=== PATIENT | male | born 1985 | race American Indian/Alaskan Native ===

== ENCOUNTER 2022-03-19 07:43 | Emergency (ER) | payer OTHER, SELFPAY ==
--- NOTE | ~2022-03-19 | CT_ITS ---
EXAMINATION: CT ABDOMEN AND PELVIS WITHOUT CONTRAST CLINICAL INFORMATION: Left flank and groin pain. COMPARISON: None TECHNIQUE: Multidetector volumetric imaging was performed from the superior aspect of the liver through the pubic symphysis. Sagittal and coronal reformatted images were obtained on the technologist's workstation. This CT examination was performed using dose optimization techniques as appropriate, variously including the following: *Automated exposure control *Adjustment of mA and/or kV according to patient size (this includes techniques or standardized protocols for targeted exams where dose is matched to indication/reason for exam; i.e. extremities or head) *Use of iterative reconstruction technique DLP: 500 mGy-cm FINDINGS: Visualized lung bases are well aerated. The liver demonstrates normal size, contour and attenuation. The gallbladder is normal in appearance. The pancreas, spleen and adrenal glands are unremarkable. Mild left-sided hydronephrosis secondary to a 4 mm calculus within the left ureterovesical junction. No other renal calculi in the left kidney are noted, however, there are approximately two 1 mm nonobstructing calculi of the right kidney demonstrated. There is no right-sided hydronephrosis. There is a 6 mm hyperdense lesion within the upper pole of the right kidney which is inaccurately characterized but statistically a hyperdense cyst. Normal caliber loops of small and large bowel. Normal appendix. Tiny fat-containing umbilical hernia. Some nodular densities within the subcutaneous tissues of the anterior abdomen are nonspecific but suspected to be injection related. Normal caliber abdominal aorta demonstrating only minimal atherosclerotic disease. No retroperitoneal lymphadenopathy. The stomach is decompressed and therefore not accurately evaluated. The prostate gland is not enlarged. No gross free pelvic fluid. No inguinal lymphadenopathy. No acute osseous abnormality. Bilateral L5 pars defects. 1 cm sclerotic density within the left ilium is nonspecific but suspected to a bone island. CT/CT abdomen pelvis wo con IMPRESSION: -Mild left-sided hydronephrosis secondary to 4 mm calculus within the left ureterovesical junction. Fleischner guidelines were followed.
[2022-03-19 08:07] VITALS: BP 130/90; PULSE 63; PULSE 66; RESP 16; TEMP 36.7; O2SAT 100; O2SAT 98; BMI 25.0
--- NOTE | 2022-03-19 08:15 | PC.NURSE ---
Pt comes in via EMS with complaints of L sided abd pain that radiates into L groin with N/V since 399. Also states diff urinating at this time. Pt states he has had previous abd surgery at [place] where his stomach was wrapped around his intestines and he almost . Pt is A&Ox4, anxious, pacing at this time, pain 10/10, pale in color, NSR on monitor, VS as charted, abd soft ttp in L quadrants at this time. Call jensen within reach, awaiting MD churchill. Will continue to monitor.
[2022-03-19 08:38] LABS: MANUAL DIFF FLAG NO
[2022-03-19 08:40] LABS: Basophils Percent Auto 0.5 % (0-2); Eosinophils Absolute Auto 0.2 X10*3/uL (0.0-0.4); Eosinophils Percent Auto 3.7 % (0-4); Hematocrit 37.1 % (42.0-52.0); Hemoglobin 12.3 g/dl (14.0-18.0); Imm Gran Abs Auto 0.02 X10*3/uL (0.00-0.03); Imm Gran Pct Auto 0.4 % (0.0-0.4); Lymphocytes Absolute Auto 1.9 X10*3/uL (1.2-4.9); Lymphocytes Percent Auto 32.6 % (20-40); Mean Corpuscular HGB Conc 33.2 g/dl (31.0-36.0); Mean Corpuscular Hemoglobin 29.3 pg (27.0-33.0); Mean Corpuscular Volume 88.3 fL (80.0-98.0); Mean Platelet Volume 10.2 fL (9.4-12.4); Monocytes Absolute Auto 0.4 X10*3/uL (0.1-1.2); Monocytes Percent Auto 6.7 % (2-11); Neutrophils Absolute Auto 3.2 x10*3/uL (2.0-8.3); Neutrophils Percent Auto 56.1 % (45-73); Platelet Count 287 X10*3/uL (160-400); Red Cell Distribution Width 13.2 % (11.0-16.0); White Blood Count 5.7 X10*3/uL (4.8-10.8)
[2022-03-19 08:44] LABS: Appearance Urine HAZY; Color Urine YELLOW; Glucose Urine UA NEG (NEG); Leukocyte Esterase Urine NEG (NEG); Nitrite Urine NEG (NEG); PH 5.5 (5.0-8.0); Specific Gravity - Urine >= 1.030 (1.005-1.025); UACC Culture Trigger NO; Urine Blood 3+ (NEG); Urine Ketones NEG (NEG); Urine Protein TRACE MG/DL (NEG-TRACE)
--- NOTE | 2022-03-19 09:00 | ED_ITS ---
HPI - Abdominal Pain General Chief Complaint: Abdominal Pain Stated Complaint: ABD PAIN Time Seen by Provider: 03/19/22 08:13 Source: patient, family and EMS Mode of arrival: EMS Limitations: no limitations History of Present Illness HPI narrative: 36-year-old male with history of previous abdominal surgery (several years ago, ?obstruction) here with reports of waking with left sided abdominal pain today. Patient has had associated nausea and vomiting. No diarrhea, constipation, urinary symptoms. He did have some hematuria 3 days ago but this has such resolved. Patient says the pain radiates in from the left back and the left abdomen and down into the left leg. He denies any radiation into the testicle. Patient tells me he has a longstanding history of chronic abdominal pain for the last 3 years. He is working with a wood cutter. He does have an upcoming colonoscopy. Related Data Previous Rx's Medication Instructions Recorded ondansetron 4 mg disintegrating 4 mg PO Q6H PRN nausea and 03/19/22 tablet vomiting #10 tabs oxycodone 5 mg tablet 5 mg PO Q4H PRN pain #10 tabs 03/19/22 tamsulosin 0.4 mg capsule (Flomax) 0.4 mg PO BEDTIME #30 caps 03/19/22 Allergies Allergy/AdvReac Type Severity Reaction Status Date / Time doxycycline Allergy Difficulty Verified 03/19/22 08:06 Breathing tramadol AdvReac Nausea Verified 03/19/22 08:06 Review of Systems Review of Systems Yes all other systems are reviewed and are negative Constitutional: Reports no additional constitutional complaints, Denies body ache(s), Denies chills, Denies fever(s), Denies headache(s) and Denies weakness Eyes: Reports no additional eye complaints and Denies change in vision Reports system reviewed and no additional complaints, except as documented, Denies dizziness, Denies headache(s), Denies nasal congestion, Denies nasal discharge and Denies neck pain Cardiovascular: Reports no additional cardiovascular complaints, Denies chest pain, Denies leg edema and Denies dyspnea Respiratory: Reports no additional respiratory complaints, Denies cough and Denies dyspnea Gastrointestinal: Reports no additional gastrointestinal complaints, Reports abdominal pain, Denies diarrhea, Reports nausea and Reports vomiting Genitourinary: Denies urinary incontinence Musculoskeletal: Reports no additional musculoskeletal complaints, Reports back pain, Denies arthralgias, Denies joint swelling, Denies neck pain, Denies numbness and Denies tingling Skin/Breast: Reports system reviewed and no additional complaints, except as docu and Denies rash Reports system reviewed and no additional complaints, except as documented, Denies dizziness, Denies headache(s), Denies numbness, Denies tingling and Denies weakness PMF Past Medical History Attestation statement: The following information was validated with the patient. Source: old records reviewed and nursing notes reviewed Social History Social History Advance Directives: No Advance Directives Information Provided: No Physical Exam ED Vital Signs: Vital Signs - 24 hr 03/19/22 08:07 03/19/22 11:17 Temperature 98.1 F 98.7 F Pulse Rate 66 67 Respiratory Rate 16 14 Blood Pressure 94/50 L Pulse Oximetry 100 98 Oxygen Delivery Method Room Air Room Air BMI result Body Mass Index 25.0 Const Other: pale, anxious, in pain General: alert Orientation/consciousness: patient oriented x3 Limitations: no limitations HENMT Head: Yes normal to inspection Ears: hearing grossly normal bilaterally Eyes General: appearance normal, both eyes and all related structures Pupils: Equal, round and reactive pupils present Neck Neck: Yes normal visual inspection Chest Chest palpation & inspection: normal inspection of the chest Resp Effort & Inspection: normal respiratory effort Auscultation: clear to auscultation bilaterally Cardio Rate: regular rate Rhythm: regular rhythm Peripheral pulses: Peripheral pulses 2+ throughout GI Inspection: Yes normal to inspection Palpation (GI): Soft to palpation and Tenderness to palpation present (GI) (LUQ/LLQ) General: Yes CVA tenderness (left side) Back/Spine/Pelvis Back: CVA tenderness (left side) Skin General skin exam: no rashes or lesions noted Neuro General: patient oriented x3 Cranial nerves: Yes Equal, round and reactive pupils present Extrem General: Yes normal to inspection, Yes no pedal edema and Yes no calf tenderness Course Course Course Narrative: 36 yo male with history of previous abdominal surgeries here with acute on chronic abdominal pain with waking and associated vomiting. Exam patient has pain in the left flank and in the left upper and left lower quadrant. Will check labs, UA, CT. Will provide analgesia, antiemetic and IV fluids Reevaluation(s) Reevaluation #1: Ct shows mild left-sided hydronephrosis secondary to a 4 mm calculus within the left UVJ. Pain is improving but not resolved. Will give oral oxycodone, Flomax and reassess Time: 11:56 Reevaluation #2: Patient tells me his pain is improved. He is able to tolerate sips of water. He can go home and follow-up with Urology. I did speak to Dr. Washington from Urology. He is aware of the patient. Reviewed worrisome signs and symptoms with the patient and when to return to the emergency department. Comfortable discharge home. Time: 13:30 MDM - Abdominal Pain MDM Narrative Medical decision making narrative: Renal colic, diverticulitis Medical Records Attestation: I reviewed the patient's medical records. Lab Data Attestation: I reviewed the patient's lab results. Result diagrams: 03/19/22 08:32 03/19/22 08:53 Labs: Lab Results 03/19/22 03/19/22 03/19/22 Range/Units 08:32 08:32 08:53 WBC 5.7 (4.8-10.8) X10*3/uL RBC 4.20 L (4.60-5.80) X10*6/uL Hgb 12.3 L (14.0-18.0) g/dl Hct 37.1 L (42.0-52.0) % MCV 88.3 (80.0-98.0) fL MCH 29.3 (27.0-33.0) pg MCHC 33.2 (31.0-36.0) g/dl RDW 13.2 (11.0-16.0) % Plt Count 287 (160-400) X10*3/uL MPV 10.2 (9.4-12.4) fL Immature Gran % (Auto) 0.4 (0.0-0.4) % Neut % (Auto) 56.1 (45-73) % Lymph % (Auto) 32.6 (20-40) % [place] % (Auto) 6.7 (2-11) % Eos % (Auto) 3.7 (0-4) % Baso % (Auto) 0.5 (0-2) % Lymph # (Auto) 1.9 (1.2-4.9) X10*3/uL [place] # (Auto) 0.4 (0.1-1.2) X10*3/uL Eos # (Auto) 0.2 (0.0-0.4) X10*3/uL Baso # (Auto) 0.0 (0.0-0.2) X10*3/uL Abs Immat Gran (auto) 0.02 (0.00-0.03) X10*3/uL Absolute Neuts (auto) 3.2 (2.0-8.3) x10*3/uL Absolute Nucleated RBC 0.000 (0.0-0.012) X10*3/uL Nucleated RBC % (auto) 0.0 (0.0-0.2) /100WBC Sodium 140 (135-145) mmol/L Potassium 4.0 (3.3-5.1) mmol/L Chloride 105 (96-108) mmol/L Carbon Dioxide 26 (22-29) mmol/L Anion Gap 13 (12-20) BUN 19 H (9-16) mg/dL Creatinine 1.28 (0.5-1.4) mg/dL Estim Creat Clear Calc 75.7 Estimated GFR > 60 Random Glucose 174 H (60-115) mg/dL Lactic Acid (0.5-2.0) mmol/L Calcium 9.0 (8.4-10.2) mg/dL Total Bilirubin 0.7 (0.0-1.0) mg/dL Direct Bilirubin 0.3 (0.0-0.5) mg/dL AST 23 (5-37) U/L ALT 22 (0-40) U/L Alkaline Phosphatase 58 (39-117) U/L Total Protein 7.3 (6.5-8.0) g/dL Albumin 4.6 (3.5-5.0) g/dL Lipase 43 (8-78) U/L Urine Color YELLOW Urine Appearance HAZY Urine pH 5.5 (5.0-8.0) Ur Specific [place] >= 1.030 H (1.005-1.025) Urine Protein TRACE (NEG-TRACE) MG/DL Urine Glucose (UA) NEG (NEG) MG/DL Urine Ketones NEG (NEG) MG/DL Urine Blood 3+ H (NEG) Urine Nitrite NEG (NEG) Ur Leukocyte Esterase NEG (NEG) Urine RBC 50-75 H (0) /HPF Urine WBC 1-4 (0-4) /HPF Ur Squamous Epith Cells TRACE /LPF Calcium Oxalate Crystal 2+ /LPF Urine Bacteria 1+ /LPF Urine Mucus 2+ /LPF COVID-19 ([facility]ATELIN) (Negative) COVID-19 Clin Com 03/19/22 03/19/22 Range/Units 09:13 09:13 WBC (4.8-10.8) X10*3/uL RBC (4.60-5.80) X10*6/uL Hgb (14.0-18.0) g/dl Hct (42.0-52.0) % MCV (80.0-98.0) fL MCH (27.0-33.0) pg MCHC (31.0-36.0) g/dl RDW (11.0-16.0) % Plt Count (160-400) X10*3/uL MPV (9.4-12.4) fL Immature Gran % (Auto) (0.0-0.4) % Neut % (Auto) (45-73) % Lymph % (Auto) (20-40) % [place] % (Auto) (2-11) % Eos % (Auto) (0-4) % Baso % (Auto) (0-2) % Lymph # (Auto) (1.2-4.9) X10*3/uL [place] # (Auto) (0.1-1.2) X10*3/uL Eos # (Auto) (0.0-0.4) X10*3/uL Baso # (Auto) (0.0-0.2) X10*3/uL Abs Immat Gran (auto) (0.00-0.03) X10*3/uL Absolute Neuts (auto) (2.0-8.3) x10*3/uL Absolute Nucleated RBC (0.0-0.012) X10*3/uL Nucleated RBC % (auto) (0.0-0.2) /100WBC Sodium (135-145) mmol/L Potassium (3.3-5.1) mmol/L Chloride (96-108) mmol/L Carbon Dioxide (22-29) mmol/L Anion Gap (12-20) BUN (9-16) mg/dL Creatinine (0.5-1.4) mg/dL Estim Creat Clear Calc Estimated GFR Random Glucose (60-115) mg/dL Lactic Acid 1.6 (0.5-2.0) mmol/L Calcium (8.4-10.2) mg/dL Total Bilirubin (0.0-1.0) mg/dL Direct Bilirubin (0.0-0.5) mg/dL AST (5-37) U/L ALT (0-40) U/L Alkaline Phosphatase (39-117) U/L Total Protein (6.5-8.0) g/dL Albumin (3.5-5.0) g/dL Lipase (8-78) U/L Urine Color Urine Appearance Urine pH (5.0-8.0) Ur Specific [place] (1.005-1.025) Urine Protein (NEG-TRACE) MG/DL Urine Glucose (UA) (NEG) MG/DL Urine Ketones (NEG) MG/DL Urine Blood (NEG) Urine Nitrite (NEG) Ur Leukocyte Esterase (NEG) Urine RBC (0) /HPF Urine WBC (0-4) /HPF Ur Squamous Epith Cells /LPF Calcium Oxalate Crystal /LPF Urine Bacteria /LPF Urine Mucus /LPF COVID-19 (KATELIN) Negative (Negative) COVID-19 Clin Com See Note Imaging Data CT scan - abdomen: Attestation: I personally reviewed and interpreted this imaging study as follows: Radiologist's impression: CT/CT abdomen pelvis wo con IMPRESSION: -Mild left-sided hydronephrosis secondary to 4 mm calculus within the left ureterovesical junction.? ? Fleischner guidelines were followed. Discharge Plan Discharge Clinical Impression: Calculus of kidney Patient Disposition: Home, Self-Care Instructions: Kidney Stones (ED) Additional Instructions: Call urology to follow up for an appointment Increase fluids, rest Return to the emergency department for severe abdominal pain, inability to tolerate p.o., fever Prescriptions: New oxycodone 5 mg tablet 5 mg PO Q4H PRN (Reason: pain) Qty: 10 0RF Rx Instructions: Partial Fill upon patient request. ondansetron 4 mg tablet,disintegrating 4 mg PO Q6H PRN (Reason: nausea and vomiting) Qty: 10 0RF tamsulosin [Flomax] 0.4 mg capsule 0.4 mg PO BEDTIME Qty: 30 0RF Referrals: Rell Washington MD [Physician] - 10 days Interventions: ED Discharge Assessment Last Done: 03/19/22 13:41 Discharge Date/Time: 03/19/22 13:42
[2022-03-19 09:04] LABS: RBC Urine 50-75 /HPF (0)
[2022-03-19 09:06] LABS: Bacteria Urine 1+ /LPF; Calcium Oxalate Crystals Urine 2+ /LPF; Mucus Urine 2+ /LPF; Squamous Epithelial Cell Urine TRACE /LPF
[2022-03-19 09:12] LABS: Anion Gap 13 (12-20); Blood Urea Nitrogen 19 mg/dL (9-16); Carbon Dioxide 26 mmol/L (22-29); Chloride 105 mmol/L (96-108); Creatinine Clr Calc Pharmacy 75.7; Estimated Glomerular Filt Rate > 60; Glucose Random 174 mg/dL (60-115); Sodium 140 mmol/L (135-145)
[2022-03-19] MEDS: Ketorolac Tromethamine 30 MG/ML VIAL IVPUSH (09:12)
[2022-03-19] MEDS: ondansetron HCL 4 MG/2 ML VIAL IVPUSH (09:12)
[2022-03-19] MEDS: Morphine Sulfate 4 MG/ML CARTRIDGE IVPUSH (09:13)
[2022-03-19] MEDS: 0.9 % Sodium Chloride 1,000 ML 999 ML IV (09:13)
[2022-03-19 09:23] LABS: Alanine Aminotransferase 22 U/L (0-40); Albumin Level 4.6 g/dL (3.5-5.0); Alkaline Phosphatase 58 U/L (39-117); Aspartate Amino Transferase 23 U/L (5-37); Bilirubin Direct 0.3 mg/dL (0.0-0.5); Bilirubin Total 0.7 mg/dL (0.0-1.0); Lipase 43 U/L (8-78); Total Protein 7.3 g/dL (6.5-8.0)
[2022-03-19 09:33] LABS: Lactic Acid 1.6 mmol/L (0.5-2.0)
[2022-03-19 09:34] LABS: COVID-19 Test Negative (Negative); IDNOW Serial# 55D5AD1C
[2022-03-19 11:17] VITALS: BP 94/50; PULSE 67; RESP 14; TEMP 37.1; O2SAT 98
[2022-03-19] MEDS: oxyCODONE HCl Immed Release 5 MG TABLET 10 MG PO (12:17)
[2022-03-19] MEDS: Tamsulosin HCL 0.4 MG CAPSULE PO (12:17)
== END 2022-03-19 13:42 | disposition home or self-care (01) ==
PROVIDERS: Nurse Practitioner Family; Emergency Provider Emergency Medicine
DX: N13.2 Hydronephrosis with renal and ureteral calculous obstruction (principal); Z20.822 Contact with and (suspected) exposure to COVID-19; R10.9 Unspecified abdominal pain; R11.2 Nausea with vomiting, unspecified
CPT/HCPCS: 36415; 74176; 80048; 80076; 81001; 83605; 83690; 85025; 87635; 96361; 96374; 96375; 99284; J1885; J2270; J2405

== ENCOUNTER 2022-03-26 20:38 | Emergency (ER) | payer OTHER, SELFPAY ==
--- NOTE | ~2022-03-26 | CT_ITS ---
EXAMINATION: CT ABDOMEN AND PELVIS WITHOUT CONTRAST CLINICAL INFORMATION: Flank pain. COMPARISON: 03/19/2022 TECHNIQUE: Multidetector volumetric imaging was performed from the superior aspect of the liver through the pubic symphysis. Sagittal and coronal reformatted images were obtained on the technologist's workstation. This CT examination was performed using dose optimization techniques as appropriate, variously including the following: *Automated exposure control *Adjustment of mA and/or kV according to patient size (this includes techniques or standardized protocols for targeted exams where dose is matched to indication/reason for exam; i.e. extremities or head) *Use of iterative reconstruction technique DLP: 539 mGy-cm FINDINGS: LUNG BASES: The visualized lung bases are unremarkable. LIVER, GALLBLADDER, AND BILIARY TREE: The liver is normal in size, shape, and attenuation. No focal hepatic lesion or biliary ductal dilatation is present. Gallbladder unremarkable. PANCREAS: Unremarkable. SPLEEN: Unremarkable. ADRENAL GLANDS: Unremarkable. KIDNEYS AND URETERS: There is a 2 mm calculus within the distal RIGHT ureter at the ureterovesical junction associated with mild upstream hydroureteronephrosis and periureteral stranding. (This calculus previously resided in the upper pole right kidney). The recently seen 3 mm calculus within the distal LEFT ureter has since passed. There is a punctate nonobstructive calculus in the lower pole of the right kidney. Subcentimeter hyperdense cyst upper pole right kidney and simple cyst in the upper pole right kidney are benign and require no further follow-up. BLADDER: Unremarkable. GASTROINTESTINAL TRACT: The small and large bowel are unremarkable. The appendix is unremarkable. ABDOMINAL WALL: No significant hernia is appreciated. LYMPH NODES: Normal. VASCULAR: Unremarkable. PELVIC VISCERA: Unremarkable. OSSEOUS STRUCTURES: Unremarkable. CT/CT abdomen pelvis wo con IMPRESSION: * There is a 2 mm calculus within the distal RIGHT ureter at the ureterovesical junction associated with mild upstream hydroureteronephrosis. * Recently seen 3 mm calculus within the distal LEFT ureter has since passed. * Punctate nonobstructive calculus, lower pole right kidney. Fleischner guidelines were followed.
[2022-03-26 20:40] VITALS: BP 132/85; PULSE 83; RESP 18; TEMP 37.2; O2SAT 100; BMI 25.9
[2022-03-26 21:48] LABS: MANUAL DIFF FLAG NO
[2022-03-26 21:49] LABS: Basophils Percent Auto 0.5 % (0-2); Eosinophils Absolute Auto 0.1 X10*3/uL (0.0-0.4); Eosinophils Percent Auto 1.6 % (0-4); Hematocrit 34.4 % (42.0-52.0); Hemoglobin 11.5 g/dl (14.0-18.0); Imm Gran Abs Auto 0.01 X10*3/uL (0.00-0.03); Imm Gran Pct Auto 0.2 % (0.0-0.4); Lymphocytes Absolute Auto 1.8 X10*3/uL (1.2-4.9); Lymphocytes Percent Auto 28.8 % (20-40); Mean Corpuscular HGB Conc 33.4 g/dl (31.0-36.0); Mean Corpuscular Hemoglobin 29.7 pg (27.0-33.0); Mean Corpuscular Volume 88.9 fL (80.0-98.0); Mean Platelet Volume 10.3 fL (9.4-12.4); Monocytes Absolute Auto 0.3 X10*3/uL (0.1-1.2); Monocytes Percent Auto 5.1 % (2-11); Neutrophils Absolute Auto 3.9 x10*3/uL (2.0-8.3); Neutrophils Percent Auto 63.8 % (45-73); Platelet Count 289 X10*3/uL (160-400); Red Blood Count 3.87 X10*6/uL (4.60-5.80); Red Cell Distribution Width 13.2 % (11.0-16.0); White Blood Count 6.1 X10*3/uL (4.8-10.8)
[2022-03-26 21:53] LABS: Appearance Urine CLOUDY; Color Urine YELLOW; Glucose Urine UA NEG (NEG); Leukocyte Esterase Urine NEG (NEG); Nitrite Urine NEG (NEG); Specific Gravity - Urine >= 1.030 (1.005-1.025); UACC Culture Trigger NO; Urine Blood 3+ (NEG); Urine Ketones NEG (NEG); Urine Protein TRACE MG/DL (NEG-TRACE)
[2022-03-26 22:12] LABS: RBC Urine 50-75 /HPF (0); WBC Urine 0-2 /HPF (0-4)
[2022-03-26 22:13] LABS: Bacteria Urine TRACE /LPF; Mucus Urine TRACE /LPF
[2022-03-26 22:19] LABS: Alanine Aminotransferase 18 U/L (0-40); Albumin Level 4.4 g/dL (3.5-5.0); Alkaline Phosphatase 53 U/L (39-117); Anion Gap 13 (12-20); Aspartate Amino Transferase 16 U/L (5-37); Bilirubin Direct 0.2 mg/dL (0.0-0.5); Bilirubin Total 0.4 mg/dL (0.0-1.0); Blood Urea Nitrogen 15 mg/dL (9-16); Calcium 8.7 mg/dL (8.4-10.2); Carbon Dioxide 29 mmol/L (22-29); Chloride 103 mmol/L (96-108); Creatinine Clr Calc Pharmacy 86.5; Estimated Glomerular Filt Rate > 60; Glucose Random 114 mg/dL (60-115); Potassium 3.9 mmol/L (3.3-5.1); Sodium 141 mmol/L (135-145); Total Protein 6.9 g/dL (6.5-8.0)
[2022-03-26 23:24] VITALS: BP 136/87; PULSE 81; RESP 18; TEMP 37; O2SAT 98
--- NOTE | 2022-03-26 23:25 | ED.ABDPAIN ---
HPI - Abdominal Pain General Chief Complaint: Abdominal Pain Stated Complaint: Left sided pain..kidney stones Time Seen by Provider: 03/26/22 23:08 Source: patient Mode of arrival: ambulatory Limitations: no limitations History of Present Illness HPI narrative: 36-year-old male with history of previous abdominal surgery (several years ago, ?obstruction) here with reports of severe 10/10, sharp constant, stabbing bilateral pain x6 days. Patient tells me that he was seen here about a week ago diagnosed with a kidney stone, he was put on Flomax and pain medicines he tell me initially got a little bit better however it has been worsening over the past few days. He tells me today he noted that he has blood in his urine, he tells me initially used is having left-sided flank pain however now it is bilateral. He also reports associated nausea and vomiting with severe pain. Patient tells me this is the worst pain he has had in his life. Upon my history taking he appears very uncomfortable, pacing around the room. Denies fevers, chills, chest pain, shortness of breath, weakness, headache, dizziness, pain to testicles/scrotum. Patient reports that he drinks multiple energy drinks per day and he thinks this may be contributing to kidney stone formation. MD elicited complaint: flank pain Pertinent past history: kidney stones Onset (ago): day(s) (6) Pain Consistency: constant Location: L flank and R flank Severity: similar to previous episodes Pain scale (0-10): 10 Quality: stabbing and sharp Radiation: none Migration to: no migration Exacerbating factors: nothing Relieving factors: nothing Associated symptoms: denies other symptoms Related Data Previous Rx's Medication Instructions Recorded ondansetron 4 mg disintegrating 4 mg PO Q6H PRN nausea and 03/19/22 tablet vomiting #10 tabs oxycodone 5 mg tablet 5 mg PO Q4H PRN pain #10 tabs 03/19/22 prednisone 20 mg tablet 20 mg PO DAILY 5 days #5 tabs 03/19/22 tamsulosin 0.4 mg capsule (Flomax) 0.4 mg PO BEDTIME #30 caps 03/19/22 morphine 15 mg immediate release 15 mg PO Q8H PRN pain #10 tabs 03/27/22 tablet ondansetron 4 mg disintegrating 4 mg PO Q8H PRN nausea and 03/27/22 tablet vomiting #10 tabs prednisone 20 mg tablet 20 mg PO DAILY 5 days #5 tabs 03/27/22 tamsulosin 0.4 mg capsule (Flomax) 0.4 mg PO DAILY #14 caps 03/27/22 Allergies Allergy/AdvReac Type Severity Reaction Status Date / Time doxycycline Allergy Difficulty Verified 03/19/22 08:06 Breathing tramadol AdvReac Nausea Verified 03/19/22 08:06 Review of Systems Review of Systems Constitutional : No Weight loss, No Fever, No Chills, No Fatigue, No Malaise ENT/Mouth : No sore throat, No Rhinorrhea Eyes: No Eye Pain, No Swelling, No Redness Cardiovascular : No Chest Pain, No SOB, No Dyspnea on Exertion, No Orthopnea, No Edema, No Palpitations Respiratory : No Cough, No Sputum, No Wheezing Gastrointestinal : No Nausea, No Vomiting, No Diarrhea, No Constipation, No abdominal Pain, No Hematochezia, No Melena Genitourinary : No Dysuria, No Urinary Frequency, + Hematuria, Musculoskeletal : No joint pain, No Myalgias, No Joint Swelling, + flank pain Skin : No Skin Lesions, No rash Neuro : No Weakness, No Numbness, No Dizziness, No Headache All other systems reviewed and are negative Yes all other systems are reviewed and are negative [facility] Past Medical History Attestation statement: The following information was validated with the patient. Social History Social History Alcohol intake: never Patient Tobacco Use Status: Never used Tobacco Use of substances other than those prescribed or required for medical reasons: No Advance Directives: No Advance Directives Information Provided: Yes Physical Exam ED Vital Signs: Vital Signs - 24 hr 03/26/22 20:40 03/26/22 23:24 03/26/22 23:49 Temperature 98.9 F 98.6 F Pulse Rate 83 81 Respiratory Rate 18 18 15 Blood Pressure 132/85 136/87 Pulse Oximetry 100 98 Oxygen Delivery Method Room Air Room Air 03/27/22 00:46 Temperature Pulse Rate Respiratory Rate 15 Blood Pressure Pulse Oximetry Oxygen Delivery Method BMI result Body Mass Index 25.9 Vital signs stable. Appearance: Alert.? Oriented X3.? Patient appears extremely uncomfortable, pacing around the room. Slightly diaphoretic Head: Normocephalic, atraumatic, no step-offs or deformities Eyes: Pupils equal, round and reactive to light.? ENT: Pharynx normal.? Neck: Normal inspection.? Neck supple.? CVS: Normal heart rate and rhythm.? Pulses normal.? Respiratory: No respiratory distress.? Breath sounds normal.? Abdomen: Soft and nontender.? Skin: Skin warm and dry.? Normal skin color.? Normal skin turgor.? Extremities: No lower extremity edema.? No calf ttp. 5/5 strength to bilateral upper and lower extremities Back: No midline tenderness, no C-spine tenderness, full range of motion, + CVA tenderness bilaterally Neuro: Oriented X 3.? No motor deficit.? No sensory deficit. CN 2-12 intact Course Reevaluation(s) Reevaluation #1: CBC appears to be around patient's baseline. Chemistry with no acute electrolyte abnormalities requiring intervention. Urine with 3+ blood, likely secondary patient passing kidney stones. COVID negative. Patient is noted to have a 2 mm stone within the right distal ureter at the UVJ, with mild upstream hydroureter nephrosis. On patient's last visit, There was a 3 mm calculus within the left ureter which has since passed. Punctate nonobstructive stones within the lower pole of the right kidney. These CT scan findings are likely causing patient's pain. At this time he will be discharged home on prednisone, Flomax and morphine for pain. Advised him to follow-up with urology in to return with new or worsening symptoms. Time: 01:41 MDM - Abdominal Pain [facility] Narrative Medical decision making narrative: [id number] 36-year-old male recently diagnosed with kidney stones presents to the emergency department severe bilateral flank pain, hematuria and difficulties with urination x 6 days worsening. Physical examination significant for uncomfortable 36-year-old male pacing around the, diaphoretic, appears uncomfortable. Regular rate and rhythm. Lungs clear. Abdomen soft nontender nondistended. Bilateral CVA tenderness. Neuro exam nonfocal. Plan at this time is labs, imaging, urine, CT of the abdomen pelvis to rule out obstructing uropathy Medical Records Attestation: I reviewed the patient's medical records. Lab Data Attestation: I reviewed the patient's lab results. Result diagrams: 03/26/22 21:43 03/26/22 21:43 Labs: Lab Results 03/26/22 03/26/22 03/26/22 Range/Units 21:43 21:43 21:43 WBC 6.1 (4.8-10.8) X10*3/uL RBC 3.87 L (4.60-5.80) X10*6/uL Hgb 11.5 L (14.0-18.0) g/dl Hct 34.4 L (42.0-52.0) % MCV 88.9 (80.0-98.0) fL MCH 29.7 (27.0-33.0) pg MCHC 33.4 (31.0-36.0) g/dl RDW 13.2 (11.0-16.0) % Plt Count 289 (160-400) X10*3/uL MPV 10.3 (9.4-12.4) fL Immature Gran % (Auto) 0.2 (0.0-0.4) % Neut % (Auto) 63.8 (45-73) % Lymph % (Auto) 28.8 (20-40) % [place] % (Auto) 5.1 (2-11) % Eos % (Auto) 1.6 (0-4) % Baso % (Auto) 0.5 (0-2) % Lymph # (Auto) 1.8 (1.2-4.9) X10*3/uL [place] # (Auto) 0.3 (0.1-1.2) X10*3/uL Eos # (Auto) 0.1 (0.0-0.4) X10*3/uL Baso # (Auto) 0.0 (0.0-0.2) X10*3/uL Abs Immat Gran (auto) 0.01 (0.00-0.03) X10*3/uL Absolute Neuts (auto) 3.9 (2.0-8.3) x10*3/uL Absolute Nucleated RBC 0.000 (0.0-0.012) X10*3/uL Nucleated RBC % (auto) 0.0 (0.0-0.2) /100WBC Sodium 141 (135-145) mmol/L Potassium 3.9 (3.3-5.1) mmol/L Chloride 103 (96-108) mmol/L Carbon Dioxide 29 (22-29) mmol/L Anion Gap 13 (12-20) BUN 15 (9-16) mg/dL Creatinine 1.12 (0.5-1.4) mg/dL Estim Creat Clear Calc 86.5 Estimated GFR > 60 Random Glucose 114 (60-115) mg/dL Calcium 8.7 (8.4-10.2) mg/dL Total Bilirubin 0.4 (0.0-1.0) mg/dL Direct Bilirubin 0.2 (0.0-0.5) mg/dL AST 16 (5-37) U/L ALT 18 (0-40) U/L Alkaline Phosphatase 53 (39-117) U/L Total Protein 6.9 (6.5-8.0) g/dL Albumin 4.4 (3.5-5.0) g/dL Urine Color YELLOW Urine Appearance CLOUDY Urine pH 6.0 (5.0-8.0) Ur Specific [place] >= 1.030 H (1.005-1.025) Urine Protein TRACE (NEG-TRACE) MG/DL Urine Glucose (UA) NEG (NEG) MG/DL Urine Ketones NEG (NEG) MG/DL Urine Blood 3+ H (NEG) Urine Nitrite NEG (NEG) Ur Leukocyte Esterase NEG (NEG) Urine RBC 50-75 H (0) /HPF Urine WBC 0-2 (0-4) /HPF Ur Squamous Epith Cells NONE /LPF Urine Bacteria TRACE /LPF Urine Mucus TRACE /LPF Urine Yeast 1+ /HPF Critical Care Time Critical Care Time Critical Care Time: No Discharge Plan Discharge Clinical Impression: Calculus of kidney Patient Disposition: Home, Self-Care Instructions: Kidney Stones (ED) Additional Instructions: Take your medications as prescribed. If you were prescribed antibiotics today, it is important that you take your medication to their entirety, do not skip any doses, do not finish them early. Follow-up with your primary care provider this week. Please follow-up with urology as soon as possible since you continue to get recurrent kidney stones. Return to the emergency department with new or worsening symptoms. Such as fevers, chills, chest pain, shortness of breath, nausea, vomiting, dizziness, headache, vision changes, lethargy In case of emergency call 911 CT/CT abdomen pelvis wo con IMPRESSION: * There is a 2 mm calculus within the distal RIGHT ureter at the ureterovesical junction associated with mild upstream hydroureteronephrosis. * Recently seen 3 mm calculus within the distal LEFT ureter has since passed. * Punctate nonobstructive calculus, lower pole right kidney. Fleischner guidelines were followed. Prescriptions: New morphine 15 mg tablet 15 mg PO Q8H PRN (Reason: pain) Qty: 10 0RF Rx Instructions: Partial Fill upon patient request. ondansetron 4 mg tablet,disintegrating 4 mg PO Q8H PRN (Reason: nausea and vomiting) Qty: 10 0RF prednisone 20 mg tablet 20 mg PO DAILY 5 Days Qty: 5 0RF tamsulosin [Flomax] 0.4 mg capsule 0.4 mg PO DAILY Qty: 14 0RF No Action prednisone 20 mg tablet 20 mg PO DAILY 5 Days Qty: 5 0RF oxycodone 5 mg tablet 5 mg PO Q4H PRN (Reason: pain) Qty: 10 0RF Rx Instructions: Partial Fill upon patient request. ondansetron 4 mg tablet,disintegrating 4 mg PO Q6H PRN (Reason: nausea and vomiting) Qty: 10 0RF tamsulosin [Flomax] 0.4 mg capsule 0.4 mg PO BEDTIME Qty: 30 0RF Referrals: Rell Washington MD [Physician] - 2 days Tiffanie Weaver PA-C [Primary Care Provider] - 2 days Stand Alone Forms: Work/School Release
[2022-03-26] MEDS: 0.9 % Sodium Chloride 1,000 ML 999 ML IV (23:48)
[2022-03-26] MEDS: ondansetron HCL 4 MG/2 ML VIAL IVPUSH (23:48)
[2022-03-26 23:49] VITALS: RESP 15
[2022-03-26] MEDS: Morphine Sulfate 4 MG/ML CARTRIDGE IVPUSH (23:49)
[2022-03-27] VITALS: BP 136/87; PULSE 81; RESP 15; TEMP 37; O2SAT 98
[2022-03-27 00:46] VITALS: RESP 15
[2022-03-27] MEDS: HYDROmorphone HCl 1 MG/ML SYRINGE IVPUSH (00:46)
[2022-03-27] MEDS: 0.9 % Sodium Chloride 1,000 ML 999 ML IV (01:57)
[2022-03-27] MEDS: HYDROmorphone HCl 2 MG TABLET 1 MG PO (02:27)
== END 2022-03-27 03:44 | disposition home or self-care (01) ==
PROVIDERS: Emergency Provider Internal Medicine; PCP Physician Assistant
DX: N13.2 Hydronephrosis with renal and ureteral calculous obstruction (principal)
CPT/HCPCS: 36415; 74176; 80053; 81001; 82248; 85025; 96361; 96374; 99284; J1170; J2270; J2405

== ENCOUNTER 2022-03-30 03:26 | Emergency (ER) | payer OTHER, SELFPAY ==
--- NOTE | ~2022-03-30 | CT_ITS ---
EXAMINATION: CT ABDOMEN AND PELVIS WITHOUT CONTRAST CLINICAL INFORMATION: Flank pain. COMPARISON: 03/27/2022 and 03/19/2022 TECHNIQUE: Multidetector volumetric imaging was performed from the superior aspect of the liver through the pubic symphysis. Sagittal and coronal reformatted images were obtained on the technologist's workstation. This CT examination was performed using dose optimization techniques as appropriate, variously including the following: *Automated exposure control *Adjustment of mA and/or kV according to patient size (this includes techniques or standardized protocols for targeted exams where dose is matched to indication/reason for exam; i.e. extremities or head) *Use of iterative reconstruction technique DLP: 552 mGy-cm FINDINGS: LUNG BASES: The visualized lung bases are unremarkable. LIVER, GALLBLADDER, AND BILIARY TREE: The liver is normal in size, shape, and attenuation. No focal hepatic lesion or biliary ductal dilatation is present. Gallbladder unremarkable. PANCREAS: Unremarkable. SPLEEN: Unremarkable. ADRENAL GLANDS: Unremarkable. KIDNEYS AND URETERS: There is a 2 mm calculus within the distal RIGHT ureter at the ureterovesical junction associated with minimal upstream hydroureteronephrosis and periureteral stranding. There are a couple punctate nonobstructive calculi in the lower pole of the right kidney. Subcentimeter hyperdense cyst upper pole right kidney and simple cyst in the upper pole right kidney are benign and require no further follow-up. BLADDER: Unremarkable. GASTROINTESTINAL TRACT: The small and large bowel are unremarkable. The appendix is unremarkable. ABDOMINAL WALL: No significant hernia is appreciated. LYMPH NODES: Normal. VASCULAR: Unremarkable. PELVIC VISCERA: Unremarkable. OSSEOUS STRUCTURES: Unremarkable. CT/CT abdomen pelvis wo con IMPRESSION: * Unchanged position of a 2 mm calculus within the distal RIGHT ureter at the ureterovesical junction associated with minimal upstream hydroureteronephrosis. * Punctate nonobstructive calculi, lower pole right kidney.
[2022-03-30 03:30] VITALS: BP 119/85; PULSE 72; RESP 16; TEMP 36.6; O2SAT 100; BMI 25.9
--- NOTE | 2022-03-30 04:19 | ED_ITS ---
HPI - Male Genitourinary General Chief complaint: Urogenital-Male Stated complaint: kidney stone pressure Time Seen by Provider: 03/30/22 04:08 Source: patient History of Present Illness HPI Narrative: This is a 36-year-old male who has had 2 recent kidney stones past. The patient initially had 1 on the left and was seen on March 19, had 4 mm left-sided stone with hydronephrosis. Patient's subcu was seen on March 27 and was diagnosed with a 2 mm right-sided ureteral stone, with the left side his tone having past. The patient since that time has had continued feeling of pressure in his abdomen. The patient has been constipated, has been on morphine, has not moved his bowels in about 5 days. He has some feeling of spasm like he has to move his bowels constantly but has not been able to. He denies any fever. He has had some nausea but no vomiting. He denies any hematuria. He has tried an enema this last evening without relief Related Data Previous Rx's Medication Instructions Recorded ondansetron 4 mg disintegrating 4 mg PO Q6H PRN nausea and 03/19/22 tablet vomiting #10 tabs oxycodone 5 mg tablet 5 mg PO Q4H PRN pain #10 tabs 03/19/22 prednisone 20 mg tablet 20 mg PO DAILY 5 days #5 tabs 03/19/22 tamsulosin 0.4 mg capsule (Flomax) 0.4 mg PO BEDTIME #30 caps 03/19/22 morphine 15 mg immediate release 15 mg PO Q8H PRN pain #10 tabs 03/27/22 tablet ondansetron 4 mg disintegrating 4 mg PO Q8H PRN nausea and 03/27/22 tablet vomiting #10 tabs prednisone 20 mg tablet 20 mg PO DAILY 5 days #5 tabs 03/27/22 tamsulosin 0.4 mg capsule (Flomax) 0.4 mg PO DAILY #14 caps 03/27/22 hydromorphone 2 mg tablet 2 mg PO Q4-6H PRN pain #8 tabs 03/30/22 (Dilaudid) ketorolac 10 mg tablet 10 mg PO Q6H PRN pain 5 days #20 03/30/22 tabs Allergies Allergy/AdvReac Type Severity Reaction Status Date / Time doxycycline Allergy Difficulty Verified 03/19/22 08:06 Breathing tramadol AdvReac Nausea Verified 03/19/22 08:06 Review of Systems Review of Systems: As per HPI Cardiovascular: Cardiovascular: Reports no additional cardiovascular complaints Respiratory: Respiratory: Reports no additional respiratory complaints [facility] Social History Social History Alcohol intake: never Patient Tobacco Use Status: Never used Tobacco Advance Directives: No Advance Directives Information Provided: Yes Physical Exam Vital Signs: Vital Signs: Last Vital Signs Temp 98 F 03/30/22 03:30 Pulse 72 03/30/22 03:30 Resp 16 03/30/22 03:30 BP 119/85 03/30/22 03:30 Pulse Ox 100 03/30/22 03:30 O2 Del Method 03/30/22 03:30 BMI result Body Mass Index 25.9 Const: Other: PERRLA Conj [place] Mucous membranes moist Throat clear Neck supple Lungs CTA Heart RRR no murmurs rubs or gallops Abd soft, non tender, non distended Rectal: No stool in the rectal vault, no fecal impaction palpable Extremities no pitting edema Neuro alert and oriented x 3, non focal MDM - Male Genitourinary MDM Narrative Medical decision making narrative: Patient with persistent symptoms, still has had a right UVJ 2 mm stone. Patient was also concerned about constipation but had no evidence of fecal impaction on rectal exam, CT did not show obstipation. Patient is scheduled for colonoscopy tomorrow and can do colonoscopy prep today which will certainly clear out his colon. Patient has urology follow-up regarding his kidney stone but is advised to call the serologies to try to get seen earlier given that the stone has not moved and is still causing symptoms. No hydronephrosis Medical Records Attestation: I reviewed the patient's medical records. Lab Data Attestation: I reviewed the patient's lab results. Imaging Data CT abdomen and pelvis without contrast: Radiologist's impression: IMPRESSION: *? Unchanged position of a 2 mm calculus within the distal RIGHT ureter at the ureterovesical junction associated with minimal upstream hydroureteronephrosis. *? Punctate nonobstructive calculi, lower pole right kidney.? Discharge Plan Discharge Clinical Impression: Colic, ureteral Patient Disposition: Home, Self-Care Instructions: Renal Colic (ED) Additional Instructions: Use hydromorphone and Ketoralac as prescribed. You can also use acetaminophen. Call Dr. Washington's office tomorrow to try to get seen sooner, explained that your right-sided stone has not moved and is still causing pain. Do the colonoscopy prep today and have the colonoscopy done tomorrow as scheduled. The colonoscopy prep will take care of your constipation. After, syncope, a sure to drink plenty of water, eat lots of fruits and vegetables Prescriptions: New hydromorphone [Dilaudid] 2 mg tablet 2 mg PO Q4-6H PRN (Reason: pain) Qty: 8 0RF Rx Instructions: Partial Fill upon patient request. ketorolac 10 mg tablet 10 mg PO Q6H PRN (Reason: pain) 5 Days Qty: 20 0RF No Action prednisone 20 mg tablet 20 mg PO DAILY 5 Days Qty: 5 0RF oxycodone 5 mg tablet 5 mg PO Q4H PRN (Reason: pain) Qty: 10 0RF Rx Instructions: Partial Fill upon patient request. ondansetron 4 mg tablet,disintegrating 4 mg PO Q6H PRN (Reason: nausea and vomiting) Qty: 10 0RF tamsulosin [Flomax] 0.4 mg capsule 0.4 mg PO BEDTIME Qty: 30 0RF morphine 15 mg tablet 15 mg PO Q8H PRN (Reason: pain) Qty: 10 0RF Rx Instructions: Partial Fill upon patient request. ondansetron 4 mg tablet,disintegrating 4 mg PO Q8H PRN (Reason: nausea and vomiting) Qty: 10 0RF prednisone 20 mg tablet 20 mg PO DAILY 5 Days Qty: 5 0RF tamsulosin [Flomax] 0.4 mg capsule 0.4 mg PO DAILY Qty: 14 0RF Interventions: ED Discharge Assessment Last Done: 03/30/22 05:49 Discharge Date/Time: 03/30/22 05:49
[2022-03-30] MEDS: Ketorolac Tromethamine 30 MG/ML VIAL IM (05:36)
== END 2022-03-30 05:49 | disposition home or self-care (01) ==
PROVIDERS: Emergency Provider Emergency Medicine; PCP Physician Assistant
DX: N20.1 Calculus of ureter (principal); Z79.899 Other long term (current) drug therapy
CPT/HCPCS: 74176; 96372; 99283; 99284; J1885

== ENCOUNTER 2022-11-10 12:33 | Emergency (ER) | payer OTHER, SELFPAY ==
--- NOTE | ~2022-11-10 | CT_ITS ---
EXAMINATION: CT ABDOMEN AND PELVIS WITHOUT CONTRAST CLINICAL INFORMATION: Left flank pain with history of stones COMPARISON: CT abdomen pelvis 03/30/2022 TECHNIQUE: Multidetector volumetric imaging was performed from the superior aspect of the liver through the pubic symphysis. Sagittal and coronal reformatted images were obtained on the technologist's workstation. This CT examination was performed using dose optimization techniques as appropriate, variously including the following: *Automated exposure control *Adjustment of mA and/or kV according to patient size (this includes techniques or standardized protocols for targeted exams where dose is matched to indication/reason for exam; i.e. extremities or head) *Use of iterative reconstruction technique DLP: 478 mGy-cm FINDINGS: LUNG BASES: The visualized lung bases are unremarkable. LIVER, GALLBLADDER, AND BILIARY TREE: The liver is normal in size, shape, and attenuation. No focal hepatic lesion or biliary ductal dilatation is present. The gallbladder is unremarkable with no evidence of radiopaque gallstones, gallbladder wall thickening, or obvious pericholecystic inflammatory changes. PANCREAS: Unremarkable. SPLEEN: Unremarkable. ADRENAL GLANDS: Unremarkable. KIDNEYS AND URETERS: The kidneys are normal in size, shape, and attenuation. There is a tiny 5 mm hyperattenuating cortical mass measuring 81 Hounsfield units consistent with a Bosniak class II hemorrhagic cyst in the upper pole of the right kidney (4:224). This needs no additional imaging or follow-up No worrisome renal masses are seen. A tiny 2 mm nonobstructing right lower pole renal calculus is present (4:299). No hydronephrosis, hydroureter, or additional calculi seen. No perinephric stranding. BLADDER: Unremarkable. The previously seen stone at the right UVJ is no longer present. GASTROINTESTINAL TRACT: The small and large bowel are unremarkable. The appendix is unremarkable. ABDOMINAL WALL: No significant hernia is appreciated. LYMPH NODES: Retroperitoneal lymphadenopathy VASCULAR: Unremarkable. PELVIC VISCERA: Unremarkable. OSSEOUS STRUCTURES: Unremarkable. CT/CT abdomen pelvis wo IV con IMPRESSION: 1. A cause for the patient's left flank pain has not been found. The previously seen right UVJ stone is no longer present. 2. Incidental note made of a 2 mm nonobstructing right lower pole renal calculus. Fleischner guidelines were followed.
[2022-11-10 13:01] VITALS: BP 115/61; PULSE 87; RESP 18; TEMP 37.2; O2SAT 99; BMI 27.3
--- NOTE | 2022-11-10 13:01 | ED.ABDPAIN ---
HPI - Abdominal Pain General Chief Complaint: Abdominal Pain <Marielle Flores NP - Last Filed: 11/10/22 13:02> Stated Complaint: kidney pain <Marielle Flores NP - Last Filed: 11/10/22 13:02> Time Seen by Provider: 11/10/22 20:42 <Marielle Flores NP - Last Filed: 11/10/22 13:02> Source: patient <Michele Foy MD - Last Filed: 11/10/22 22:52> Mode of arrival: ambulatory <Michele Foy MD - Last Filed: 11/10/22 22:52> Limitations: no limitations <Michele Foy MD - Last Filed: 11/10/22 22:52> History of Present Illness HPI narrative: Patient with history of recurrent kidney stones been having pain in the left flank area for last 3 weeks got worse in last 2 days associated with nausea also patient has been congested with cold symptoms for last few days other family member also sick patient tested for COVID negative at home patient denies any hematuria no dysuria no frequency <Michele Foy MD - Last Filed: 11/10/22 22:52> Related Data Home Medications: Previous Rx's Medication Instructions Recorded ondansetron 4 mg disintegrating 4 mg PO Q6H PRN nausea and 03/19/22 tablet vomiting #10 tabs oxycodone 5 mg tablet 5 mg PO Q4H PRN pain #10 tabs 03/19/22 prednisone 20 mg tablet 20 mg PO DAILY 5 days #5 tabs 03/19/22 tamsulosin 0.4 mg capsule (Flomax) 0.4 mg PO BEDTIME #30 caps 03/19/22 morphine 15 mg immediate release 15 mg PO Q8H PRN pain #10 tabs 03/27/22 tablet ondansetron 4 mg disintegrating 4 mg PO Q8H PRN nausea and 03/27/22 tablet vomiting #10 tabs prednisone 20 mg tablet 20 mg PO DAILY 5 days #5 tabs 03/27/22 tamsulosin 0.4 mg capsule (Flomax) 0.4 mg PO DAILY #14 caps 03/27/22 hydromorphone 2 mg tablet 2 mg PO Q4-6H PRN pain #8 tabs 03/30/22 (Dilaudid) ketorolac 10 mg tablet 10 mg PO Q6H PRN pain 5 days #20 03/30/22 tabs ibuprofen 600 mg tablet 600 mg PO Q6H PRN pain #30 tabs 11/10/22 <Marielle Flores NP - Last Filed: 11/10/22 13:02> Allergies/Adverse Reactions: Allergies Allergy/AdvReac Type Severity Reaction Status Date / Time doxycycline Allergy Difficulty Verified 03/19/22 08:06 Breathing tramadol AdvReac Nausea Verified 03/19/22 08:06 <Marielle Flores NP - Last Filed: 11/10/22 13:02> Review of Systems Review of Systems Yes all other systems are reviewed and are negative <Michele Foy MD - Last Filed: 11/10/22 22:52> [facility] Social History Social History: Social History Alcohol intake: never Patient Tobacco Use Status: Never used Tobacco Advance Directives: No Advance Directives Information Provided: Yes <Marielel Flores NP - Last Filed: 11/10/22 13:02> Physical Exam ED Vital Signs: Vital Signs - 24 hr 11/10/22 13:01 11/10/22 21:05 Temperature 98.9 F 97.5 F Pulse Rate 87 74 Respiratory Rate 18 15 Blood Pressure 115/61 126/78 Pulse Oximetry 99 99 Oxygen Delivery Method Room Air Room Air BMI result Body Mass Index 27.3 <Marielle Flores NP - Last Filed: 11/10/22 13:02> Vital Signs - 24 hr 11/10/22 13:01 11/10/22 21:05 Temperature 98.9 F 97.5 F Pulse Rate 87 74 Respiratory Rate 18 15 Blood Pressure 115/61 126/78 Pulse Oximetry 99 99 Oxygen Delivery Method Room Air Room Air BMI result Body Mass Index 27.3 <Michele Foy MD - Last Filed: 11/10/22 22:52> Appearance: Alert. Oriented X3. No acute distress. Eyes: No pallor in ENT: Pharynx normal. Oral Mucosa moist Neck: Normal inspection. Neck supple. CVS: Normal heart rate and rhythm. Pulses normal. Respiratory: No respiratory distress. Equal air entry bilateral, no wheezing/rales/rhonchi Abdomen: Soft and nontender. Bowel sounds are present, no mass palpable, mild left CVA tenderness Skin: Skin warm and dry. Normal skin color. Normal skin turgor. Extremities: No lower extremity edema. No calf tenderness Neuro: Oriented X 3. No motor deficit. <Michele Foy MD - Last Filed: 11/10/22 22:52> Course Course Course Narrative: This is rapid medical exam. Deferred additional HPI, ROS, PE to primary provider. 37-year-old male with a history of renal colic presents to 2 weeks of left flank pain. Also last 2 days having headache, feeling feverish, malaise. Will check labs, UA, covid/flu/rsv. VSS. <Marielle Flores NP - Last Filed: 11/10/22 13:02> Medical Decision Making Medical Decision Making MDM Narrative: Patient left flank pain CT scan negative for any obstructive kidney stone. UA is pending patient denies any dysuria frequency likely patient passed the stone UA is negative likely pain is musculoskeletal <Michele Foy MD - Last Filed: 11/10/22 22:52> Lab Data MDM Lab Attestation statement: I reviewed the patient's lab results. <Michele Foy MD - Last Filed: 11/10/22 22:52> Result Diagrams: 11/10/22 16:04 11/10/22 16:04 <Marielle Flores NP - Last Filed: 11/10/22 13:02> Labs: Lab Results 11/10/22 11/10/22 11/10/22 Range/Units 16:04 16:04 16:06 WBC 7.5 (4.8-10.8) X10*3/uL RBC 4.80 D (4.60-5.80) X10*6/uL Hgb 14.4 D (14.0-18.0) g/dl Hct 42.8 D (42.0-52.0) % MCV 89.2 (80.0-98.0) fL MCH 30.0 (27.0-33.0) pg MCHC 33.6 (31.0-36.0) g/dl RDW 13.0 (11.0-16.0) % Plt Count 326 (160-400) X10*3/uL MPV 10.1 (9.4-12.4) fL Immature Gran % (Auto) 0.1 (0.0-0.4) % Neut % (Auto) 79.8 H (45-73) % Lymph % (Auto) 15.0 L (20-40) % [place] % (Auto) 3.9 (2-11) % Eos % (Auto) 0.5 (0-4) % Baso % (Auto) 0.7 (0-2) % Lymph # (Auto) 1.1 L (1.2-4.9) X10*3/uL [place] # (Auto) 0.3 (0.1-1.2) X10*3/uL Eos # (Auto) 0.0 (0.0-0.4) X10*3/uL Baso # (Auto) 0.1 (0.0-0.2) X10*3/uL Abs Immat Gran (auto) 0.01 (0.00-0.03) X10*3/uL Absolute Neuts (auto) 6.0 (2.0-8.3) x10*3/uL Absolute Nucleated RBC 0.000 (0.0-0.012) X10*3/uL Nucleated RBC % (auto) 0.0 (0.0-0.2) /100WBC Sodium 141 (135-145) mmol/L Potassium 4.3 (3.3-5.1) mmol/L Chloride 105 (96-108) mmol/L Carbon Dioxide 28 (22-29) mmol/L Anion Gap 12 (12-20) BUN 14 (9-16) mg/dL Creatinine 1.17 (0.5-1.4) mg/dL Estim Creat Clear Calc 82.0 Estimated GFR > 60 Random Glucose 142 H (60-115) mg/dL Calcium 9.5 D (8.4-10.2) mg/dL Urine Color Urine Appearance Urine pH (5.0-9.0) Ur Specific [place] (1.005-1.025) Urine Protein (Neg-Trace) mg/dL Urine Glucose (UA) (Negative) mg/dL Urine Ketones (Negative) mg/dL Urine Blood (Negative) Urine Nitrite (Negative) Ur Leukocyte Esterase (Negative) Influenza Type A (PCR) NEGATIVE (Negative) Influenza Type B (PCR) NEGATIVE (Negative) RSV RNA Qual (PCR) NEGATIVE (Negative) SARS-CoV-2 RNA (RT-PCR) NEGATIVE (Negative) 11/10/22 Range/Units 22:33 WBC (4.8-10.8) X10*3/uL RBC (4.60-5.80) X10*6/uL Hgb (14.0-18.0) g/dl Hct (42.0-52.0) % MCV (80.0-98.0) fL MCH (27.0-33.0) pg MCHC (31.0-36.0) g/dl RDW (11.0-16.0) % Plt Count (160-400) X10*3/uL MPV (9.4-12.4) fL Immature Gran % (Auto) (0.0-0.4) % Neut % (Auto) (45-73) % Lymph % (Auto) (20-40) % [place] % (Auto) (2-11) % Eos % (Auto) (0-4) % Baso % (Auto) (0-2) % Lymph # (Auto) (1.2-4.9) X10*3/uL [place] # (Auto) (0.1-1.2) X10*3/uL Eos # (Auto) (0.0-0.4) X10*3/uL Baso # (Auto) (0.0-0.2) X10*3/uL Abs Immat Gran (auto) (0.00-0.03) X10*3/uL Absolute Neuts (auto) (2.0-8.3) x10*3/uL Absolute Nucleated RBC (0.0-0.012) X10*3/uL Nucleated RBC % (auto) (0.0-0.2) /100WBC Sodium (135-145) mmol/L Potassium (3.3-5.1) mmol/L Chloride (96-108) mmol/L Carbon Dioxide (22-29) mmol/L Anion Gap (12-20) BUN (9-16) mg/dL Creatinine (0.5-1.4) mg/dL Estim Creat Clear Calc Estimated GFR Random Glucose (60-115) mg/dL Calcium (8.4-10.2) mg/dL Urine Color Dark Yellow Urine Appearance Clear Urine pH 5.5 (5.0-9.0) Ur Specific [place] >= 1.030 H (1.005-1.025) Urine Protein Trace (Neg-Trace) mg/dL Urine Glucose (UA) Negative (Negative) mg/dL Urine Ketones Negative (Negative) mg/dL Urine Blood Negative (Negative) Urine Nitrite Negative (Negative) Ur Leukocyte Esterase Negative (Negative) Influenza Type A (PCR) (Negative) Influenza Type B (PCR) (Negative) RSV RNA Qual (PCR) (Negative) SARS-CoV-2 RNA (RT-PCR) (Negative) <Marielle Flores, EXECUTIVE DIRECTOR OF MARKETING - Last Filed: 11/10/22 13:02> Lab Results 11/10/22 11/10/22 11/10/22 Range/Units 16:04 16:04 16:06 WBC 7.5 (4.8-10.8) X10*3/uL RBC 4.80 D (4.60-5.80) X10*6/uL Hgb 14.4 D (14.0-18.0) g/dl Hct 42.8 D (42.0-52.0) % MCV 89.2 (80.0-98.0) fL MCH 30.0 (27.0-33.0) pg MCHC 33.6 (31.0-36.0) g/dl RDW 13.0 (11.0-16.0) % Plt Count 326 (160-400) X10*3/uL MPV 10.1 (9.4-12.4) fL Immature Gran % (Auto) 0.1 (0.0-0.4) % Neut % (Auto) 79.8 H (45-73) % Lymph % (Auto) 15.0 L (20-40) % [place] % (Auto) 3.9 (2-11) % Eos % (Auto) 0.5 (0-4) % Baso % (Auto) 0.7 (0-2) % Lymph # (Auto) 1.1 L (1.2-4.9) X10*3/uL [place] # (Auto) 0.3 (0.1-1.2) X10*3/uL Eos # (Auto) 0.0 (0.0-0.4) X10*3/uL Baso # (Auto) 0.1 (0.0-0.2) X10*3/uL Abs Immat Gran (auto) 0.01 (0.00-0.03) X10*3/uL Absolute Neuts (auto) 6.0 (2.0-8.3) x10*3/uL Absolute Nucleated RBC 0.000 (0.0-0.012) X10*3/uL Nucleated RBC % (auto) 0.0 (0.0-0.2) /100WBC Sodium 141 (135-145) mmol/L Potassium 4.3 (3.3-5.1) mmol/L Chloride 105 (96-108) mmol/L Carbon Dioxide 28 (22-29) mmol/L Anion Gap 12 (12-20) BUN 14 (9-16) mg/dL Creatinine 1.17 (0.5-1.4) mg/dL Estim Creat Clear Calc 82.0 Estimated GFR > 60 Random Glucose 142 H (60-115) mg/dL Calcium 9.5 D (8.4-10.2) mg/dL Urine Color Urine Appearance Urine pH (5.0-9.0) Ur Specific [place] (1.005-1.025) Urine Protein (Neg-Trace) mg/dL Urine Glucose (UA) (Negative) mg/dL Urine Ketones (Negative) mg/dL Urine Blood (Negative) Urine Nitrite (Negative) Ur Leukocyte Esterase (Negative) Influenza Type A (PCR) NEGATIVE (Negative) Influenza Type B (PCR) NEGATIVE (Negative) RSV RNA Qual (PCR) NEGATIVE (Negative) SARS-CoV-2 RNA (RT-PCR) NEGATIVE (Negative) 11/10/22 Range/Units 22:33 WBC (4.8-10.8) X10*3/uL RBC (4.60-5.80) X10*6/uL Hgb (14.0-18.0) g/dl Hct (42.0-52.0) % MCV (80.0-98.0) fL MCH (27.0-33.0) pg MCHC (31.0-36.0) g/dl RDW (11.0-16.0) % Plt Count (160-400) X10*3/uL MPV (9.4-12.4) fL Immature Gran % (Auto) (0.0-0.4) % Neut % (Auto) (45-73) % Lymph % (Auto) (20-40) % [place] % (Auto) (2-11) % Eos % (Auto) (0-4) % Baso % (Auto) (0-2) % Lymph # (Auto) (1.2-4.9) X10*3/uL [place] # (Auto) (0.1-1.2) X10*3/uL Eos # (Auto) (0.0-0.4) X10*3/uL Baso # (Auto) (0.0-0.2) X10*3/uL Abs Immat Gran (auto) (0.00-0.03) X10*3/uL Absolute Neuts (auto) (2.0-8.3) x10*3/uL Absolute Nucleated RBC (0.0-0.012) X10*3/uL Nucleated RBC % (auto) (0.0-0.2) /100WBC Sodium (135-145) mmol/L Potassium (3.3-5.1) mmol/L Chloride (96-108) mmol/L Carbon Dioxide (22-29) mmol/L Anion Gap (12-20) BUN (9-16) mg/dL Creatinine (0.5-1.4) mg/dL Estim Creat Clear Calc Estimated GFR Random Glucose (60-115) mg/dL Calcium (8.4-10.2) mg/dL Urine Color Dark Yellow Urine Appearance Clear Urine pH 5.5 (5.0-9.0) Ur Specific [place] >= 1.030 H (1.005-1.025) Urine Protein Trace (Neg-Trace) mg/dL Urine Glucose (UA) Negative (Negative) mg/dL Urine Ketones Negative (Negative) mg/dL Urine Blood Negative (Negative) Urine Nitrite Negative (Negative) Ur Leukocyte Esterase Negative (Negative) Influenza Type A (PCR) (Negative) Influenza Type B (PCR) (Negative) RSV RNA Qual (PCR) (Negative) SARS-CoV-2 RNA (RT-PCR) (Negative) <Michele Foy MD - Last Filed: 11/10/22 22:52> Medications Administered Discontinued Medications Generic Name Dose Route Start Last Admin Trade Name Freq PRN Reason Stop Dose Admin Sodium Chloride 1,000 mls @ 999 mls/hr 11/10/22 21:00 11/10/22 21:27 Ns IV 11/10/22 22:00 999 mls/hr .Q1H1M ONE Administration Ketorolac Tromethamine 30 mg 11/10/22 21:00 11/10/22 21:27 Ketorolac Tromethamine 30 Mg/Ml Vial IVPUSH 11/10/22 21:01 30 mg ONCE ONE Administration <Marielle Flores NP - Last Filed: 11/10/22 13:02> Medications Administered Discontinued Medications Generic Name Dose Route Start Last Admin Trade Name Freq PRN Reason Stop Dose Admin Sodium Chloride 1,000 mls @ 999 mls/hr 11/10/22 21:00 11/10/22 21:27 Ns IV 11/10/22 22:00 999 mls/hr .Q1H1M ONE Administration Ketorolac Tromethamine 30 mg 11/10/22 21:00 11/10/22 21:27 Ketorolac Tromethamine 30 Mg/Ml Vial IVPUSH 11/10/22 21:01 30 mg ONCE ONE Administration <Michele Foy MD - Last Filed: 11/10/22 22:52> Discharge Plan Discharge Clinical Impression: Renal colic on left side <Marielle Flores NP - Last Filed: 11/10/22 13:02> Patient Disposition: Home, Self-Care <Marielle Flores NP - Last Filed: 11/10/22 13:02> Instructions: Renal Colic (ED) <Marielle Flores NP - Last Filed: 11/10/22 13:02> Additional Instructions: Cause of left flank pain is not clear your urine is also negative CT scan did not show any obstructive stone Ibuprofen for pain Follow up with PCP <Marielle Flores NP - Last Filed: 11/10/22 13:02> Prescriptions: New ibuprofen 600 mg tablet 600 mg PO Q6H PRN (Reason: pain) Qty: 30 0RF No Action prednisone 20 mg tablet 20 mg PO DAILY 5 Days Qty: 5 0RF hydromorphone [Dilaudid] 2 mg tablet 2 mg PO Q4-6H PRN (Reason: pain) Qty: 8 0RF Rx Instructions: Partial Fill upon patient request. ketorolac 10 mg tablet 10 mg PO Q6H PRN (Reason: pain) 5 Days Qty: 20 0RF oxycodone 5 mg tablet 5 mg PO Q4H PRN (Reason: pain) Qty: 10 0RF Rx Instructions: Partial Fill upon patient request. ondansetron 4 mg tablet,disintegrating 4 mg PO Q6H PRN (Reason: nausea and vomiting) Qty: 10 0RF tamsulosin [Flomax] 0.4 mg capsule 0.4 mg PO BEDTIME Qty: 30 0RF morphine 15 mg tablet 15 mg PO Q8H PRN (Reason: pain) Qty: 10 0RF Rx Instructions: Partial Fill upon patient request. ondansetron 4 mg tablet,disintegrating 4 mg PO Q8H PRN (Reason: nausea and vomiting) Qty: 10 0RF prednisone 20 mg tablet 20 mg PO DAILY 5 Days Qty: 5 0RF tamsulosin [Flomax] 0.4 mg capsule 0.4 mg PO DAILY Qty: 14 0RF <Marielle Flores NP - Last Filed: 11/10/22 13:02>
[2022-11-10 16:11] LABS: MANUAL DIFF FLAG NO
[2022-11-10 16:23] LABS: Basophils Absolute Auto 0.1 X10*3/uL (0.0-0.2); Basophils Percent Auto 0.7 % (0-2); Eosinophils Percent Auto 0.5 % (0-4); Hematocrit 42.8 % (42.0-52.0); Hemoglobin 14.4 g/dl (14.0-18.0); Imm Gran Abs Auto 0.01 X10*3/uL (0.00-0.03); Imm Gran Pct Auto 0.1 % (0.0-0.4); Lymphocytes Absolute Auto 1.1 X10*3/uL (1.2-4.9); Mean Corpuscular HGB Conc 33.6 g/dl (31.0-36.0); Mean Corpuscular Volume 89.2 fL (80.0-98.0); Mean Platelet Volume 10.1 fL (9.4-12.4); Monocytes Absolute Auto 0.3 X10*3/uL (0.1-1.2); Monocytes Percent Auto 3.9 % (2-11); Neutrophils Percent Auto 79.8 % (45-73); Platelet Count 326 X10*3/uL (160-400); White Blood Count 7.5 X10*3/uL (4.8-10.8)
[2022-11-10 16:26] LABS: Anion Gap 12 (12-20); Blood Urea Nitrogen 14 mg/dL (9-16); Calcium 9.5 mg/dL (8.4-10.2); Carbon Dioxide 28 mmol/L (22-29); Chloride 105 mmol/L (96-108); Estimated Glomerular Filt Rate > 60; Glucose Random 142 mg/dL (60-115); Potassium 4.3 mmol/L (3.3-5.1); Sodium 141 mmol/L (135-145)
[2022-11-10 16:53] LABS: Influenza A PCR NEGATIVE (Negative); Influenza B PCR NEGATIVE (Negative); Resp Syncy Virus RNA Qual PCR NEGATIVE (Negative); SARS COV2 PCR INHOUSE NEGATIVE (Negative)
[2022-11-10 21:05] VITALS: BP 126/78; PULSE 74; RESP 15; TEMP 36.4; O2SAT 99
[2022-11-10] MEDS: 0.9 % Sodium Chloride 1,000 ML 999 ML IV (21:27)
[2022-11-10] MEDS: Ketorolac Tromethamine 30 MG/ML VIAL IVPUSH (21:27)
[2022-11-10 22:40] LABS: Appearance Urine Clear; Color Urine Dark Yellow; Glucose Urine UA Negative (Negative); Leukocyte Esterase Urine Negative (Negative); Nitrite Urine Negative (Negative); PH 5.5 (5.0-9.0); Specific Gravity - Urine >= 1.030 (1.005-1.025); Urine Blood Negative (Negative); Urine Ketones Negative (Negative); Urine Protein Trace mg/dL (Neg-Trace)
--- NOTE | 2022-11-10 23:23 | PC.NURSE ---
IV line removed. Pt tolerated well. Discharge instructions reviewed with pt. Pt verbalizes understanding.
== END 2022-11-10 23:24 | disposition home or self-care (01) ==
PROVIDERS: Nurse Practitioner Family; Emergency Provider Internal Medicine
DX: N23 Unspecified renal colic (principal); Z20.822 Contact with and (suspected) exposure to COVID-19; Z20.828 Contact with and (suspected) exposure to other viral communicable diseases; Z79.899 Other long term (current) drug therapy
CPT/HCPCS: 0241U; 74176; 80048; 81003; 85025; 96361; 96374; 99284; J1885

== ENCOUNTER 2022-12-22 18:15 | Emergency (ER) | payer OTHER, SELFPAY ==
--- NOTE | ~2022-12-22 | CT_ITS ---
EXAMINATION: CT BRAIN AND CT CERVICAL SPINE WITHOUT CONTRAST. CLINICAL INFORMATION: Headache, dizziness and neck pain. COMPARISON: None TECHNIQUE: 5 mm thin axial and 2 mm thin sagittal and coronal images of brain were obtained. 3 minutes thin and reformatted 2 minutes thin sagittal coronal images of cervical spine were obtained. DLP [id number]. FINDINGS: Brain: There is no acute intra-axial, extra-axial bleed, masses or midline shift. There is no acute infarction in evolution. No edema. The lateral ventricles are symmetrical in size and configuration without enlargement. Bone windows reveal no calvarial abnormality. There is no scalp soft tissue abnormality. Bilateral paranasal sinuses and mastoid air cells are well-aerated. Cervical spine: There is mild straightening of cervical lordosis. The vertebral heights, alignment and disc heights are normal. No visible acute fracture, dislocation or subluxation seen. Mild posterior spondylosis seen at the C4-C5 and C5-C6 disc levels. The craniovertebral junction and the C1-C2 alignment is normal. There is mild posterior cervical spondylosis. The lung bases are clear. CT/CT cervical spine wo IV con IMPRESSION: 1. No acute intracranial process seen. 2. Mild straightening of cervical lordosis likely spasm. No visible acute fracture, dislocation or subluxation seen.
--- NOTE | ~2022-12-22 | CT_ITS ---
EXAMINATION: CT BRAIN AND CT CERVICAL SPINE WITHOUT CONTRAST. CLINICAL INFORMATION: Headache, dizziness and neck pain. COMPARISON: None TECHNIQUE: 5 mm thin axial and 2 mm thin sagittal and coronal images of brain were obtained. 3 minutes thin and reformatted 2 minutes thin sagittal coronal images of cervical spine were obtained. DLP 1026. FINDINGS: Brain: There is no acute intra-axial, extra-axial bleed, masses or midline shift. There is no acute infarction in evolution. No edema. The lateral ventricles are symmetrical in size and configuration without enlargement. Bone windows reveal no calvarial abnormality. There is no scalp soft tissue abnormality. Bilateral paranasal sinuses and mastoid air cells are well-aerated. Cervical spine: There is mild straightening of cervical lordosis. The vertebral heights, alignment and disc heights are normal. No visible acute fracture, dislocation or subluxation seen. Mild posterior spondylosis seen at the C4-C5 and C5-C6 disc levels. The craniovertebral junction and the C1-C2 alignment is normal. There is mild posterior cervical spondylosis. The lung bases are clear. CT/CT head/brain wo IV con IMPRESSION: 1. No acute intracranial process seen. 2. Mild straightening of cervical lordosis likely spasm. No visible acute fracture, dislocation or subluxation seen.
[2022-12-22 18:29] VITALS: BP 148/97; PULSE 96; RESP 18; TEMP 36.8; O2SAT 99; BMI 25.8
--- NOTE | 2022-12-22 18:29 | ED_ITS ---
HPI - Skin/Abscess/Foreign Bdy General Chief complaint: Headache <REMY Lira Last Filed: 12/23/22 11:02> Stated complaint: cyst on back of neck,dizziness,severe H/A <REMY Lira - Last Filed: 12/23/22 11:02> Time Seen by Provider: 12/22/22 22:31 <REMY Lira Last Filed: 12/23/22 11:02> Source: patient <REMY Bui Last Filed: 12/23/22 01:34> Mode of arrival: ambulatory <REMY Bui Last Filed: 12/23/22 01:34> Limitations: no limitations <REMY Bui Last Filed: 12/23/22 01:34> History of Present Illness HPI narrative: This is a 37-year-old male without significant medical history presenting to the emergency department for evaluation of severe headache, blurred vision, dizziness, neck discomfort, bump on neck x2 weeks. Patient tells me that when he was younger he had headaches however never had them evaluated by a professional. He reports that this headache started suddenly about 2 weeks ago and since then he it has been constant in nature with intermittent blurred vision, patient reports that the headache is severe diffuse and throbbing when it happens and sometimes associated with some dizziness described as room spinning. Patient reports that his neck feels tight and he feels like there is a bump on the lower right side of his neck. 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 He reports that he had a lot of head injuries as a child, no recent head injuries. He tells me he had a fall few weeks ago however did not injure his head, no loss of consciousness. Patient denies chest pain, shortness of breath, painful vision, nausea, vomiting, abdominal pain. GCS of 15. NIH stroke scale 0 on arrival. Was advised to come in to the ED by [facility] Perez <REMY Bui - Last Filed: 12/23/22 01:34> Related Data Home medications: Previous Rx's Medication Instructions Recorded ondansetron 4 mg disintegrating 4 mg PO Q6H PRN nausea and 03/19/22 tablet vomiting #10 tabs oxycodone 5 mg tablet 5 mg PO Q4H PRN pain #10 tabs 03/19/22 prednisone 20 mg tablet 20 mg PO DAILY 5 days #5 tabs 03/19/22 tamsulosin 0.4 mg capsule (Flomax) 0.4 mg PO BEDTIME #30 caps 03/19/22 morphine 15 mg immediate release 15 mg PO Q8H PRN pain #10 tabs 03/27/22 tablet ondansetron 4 mg disintegrating 4 mg PO Q8H PRN nausea and 03/27/22 tablet vomiting #10 tabs prednisone 20 mg tablet 20 mg PO DAILY 5 days #5 tabs 03/27/22 tamsulosin 0.4 mg capsule (Flomax) 0.4 mg PO DAILY #14 caps 03/27/22 hydromorphone 2 mg tablet 2 mg PO Q4-6H PRN pain #8 tabs 03/30/22 (Dilaudid) ketorolac 10 mg tablet 10 mg PO Q6H PRN pain 5 days #20 03/30/22 tabs ibuprofen 600 mg tablet 600 mg PO Q6H PRN pain #30 tabs 11/10/22 diphenhydramine HCl 25 mg capsule 25 mg PO TID PRN allergic reaction 12/23/22 (Benadryl) #20 caps ketorolac 10 mg tablet 10 mg PO TID PRN pain 5 days #15 12/23/22 tabs metoclopramide HCl 10 mg tablet 10 mg PO Q6H PRN headache #20 tabs 12/23/22 (Reglan) <REMY Lira - Last Filed: 12/23/22 11:02> Allergies/Adverse reactions: Allergies Allergy/AdvReac Type Severity Reaction Status Date / Time doxycycline Allergy Difficulty Verified 12/22/22 18:29 Breathing tramadol AdvReac Nausea Verified 12/22/22 18:29 <REMY Lira - Last Filed: 12/23/22 11:02> Review of Systems Review of Systems: Constitutional : No Weight loss, No Fever, No Chills, No Fatigue, No Malaise ENT/Mouth : No sore throat, No Rhinorrhea Eyes: No Eye Pain, No Swelling, No Redness Cardiovascular : No Chest Pain, No SOB, No Dyspnea on Exertion, No Orthopnea, No Edema, No Palpitations Respiratory : No Cough, No Sputum, No Wheezing Gastrointestinal : No Nausea, No Vomiting, No Diarrhea, No Constipation, No abdominal Pain, No Hematochezia, No Melena Genitourinary : No Dysuria, No Urinary Frequency, No Hematuria, Musculoskeletal : No joint pain, No Myalgias, No Joint Swelling, + neck pain Skin : No Skin Lesions, No rash Neuro : No Weakness, No Numbness, No Dizziness, + Headache Psych : No Anxiety/Panic, No Depression All other systems reviewed and are negative <REMY Bui - Last Filed: 12/23/22 01:34> Yes all other systems are reviewed and are negative <REMY Bui - Last Filed: 12/23/22 01:34> [facility] Past Medical History Attestation statement: The following information was validated with the patient. <REMY Bui - Last Filed: 12/23/22 01:34> Source: old records reviewed and nursing notes reviewed <REMY Bui - Last Filed: 12/23/22 01:34> Social History Social History: Social History Alcohol intake: never Patient Tobacco Use Status: Never used Tobacco Smoked in Last 30 Days: No Use of substances other than those prescribed or required for medical reasons: No Advance Directives: No Advance Directives Information Provided: Yes <REMY Lira - Last Filed: 12/23/22 11:02> Physical Exam Vital Signs: Vital Signs: Last Vital Signs Temp 98.3 F 12/22/22 18:29 Pulse 62 12/23/22 08:49 Resp 16 12/23/22 08:49 BP 117/54 L 12/23/22 08:49 Pulse Ox 96 12/23/22 08:49 O2 Del Method 12/23/22 08:49 BMI result Body Mass Index 25.8 <REMY Lira - Last Filed: 12/23/22 11:02> Vital Signs: Last Vital Signs Temp 98.3 F 12/22/22 18:29 Pulse 62 12/23/22 08:49 Resp 16 12/23/22 08:49 BP 117/54 L 12/23/22 08:49 Pulse Ox 96 12/23/22 08:49 O2 Del Method 12/23/22 08:49 BMI result Body Mass Index 25.8 vss <REMY Bui - Last Filed: 12/23/22 01:34> Appearance: Alert.? Oriented X3.? No acute distress.? Head: Normocephalic, atraumatic, no step-offs or deformities Eyes: Pupils equal, round and reactive to light.? Neck: Normal inspection.? Neck supple.? Negative Kernig and Brudzinski. CVS: Normal heart rate and rhythm.? Pulses normal.? Respiratory: No respiratory distress.? Breath sounds normal.? Abdomen: Soft and nontender.? Skin: Skin warm and dry.? Normal skin color.? Normal skin turgor.? Extremities: No lower extremity edema.? No calf ttp. 5/5 strength to bilateral upper and lower extremities Back: No midline tenderness, no C-spine tenderness, full range of motion, no CVA tenderness bilaterally Neuro: Oriented X 3.? No motor deficit.? No sensory deficit. CN 2-12 intact . Ambulating with steady gait normal coordination. Normal rapid alternating movements. Normal tofepc-[id number]-dmlr, feoq-hu-qvyk. GCS 15. NIH stroke scale 0. <REMY Bui - Last Filed: 12/23/22 01:34> Course Course Course Narrative: KARLI-18:30pm - 37yoM presenting to the ER with complaints of headache and neck pain for 2-3 weeks and he noticed that he is developing a cyst lump to the right lower aspect of his neck. Reports he fell a few weeks ago and was not seen for this. Although has a hx of C4 vertebrae fracture. Plan: Will obtain a CT scan of brain and cervical spine patient will be sent to the waiting room to be evaluated in the ED. <REMY Lira - Last Filed: 12/23/22 11:02> Reevaluation(s) Reevaluation #1: CBC appears to be around patient's baseline. Chemistry with no acute findings requiring intervention. Transaminases elevated in 2:1 fashion patient denies ETOH and drug use. No abd tenderness TPP. Coags unremarkable. Viral test negative. no acute intracranial process seen On head CT. CT of the cervical spine with mild straightening of cervical lordosis likely muscle spasm. No visible acute fracture, dislocation or subluxation. Will give Reglan, Benadryl, Toradol for symptoms. <REMY Bui - Last Filed: 12/23/22 01:34> Time: 22:57 <REMY Bui - Last Filed: 12/23/22 01:34> Reevaluation #2: Patient was sleeping, woke him up, he tells me still in pain severe, morphine ordered. I obtained eye pressures on both sides bilateral eye pressures 8 no signs of acute closed angle glaucoma or wet macular degeneration. Visual acuity R: 20/15,L: 20/10 patient not wearing any assisting devices. I did discuss this case w/ my attending Dr. Bruno who recommends dc home if patients neuro remains nonfocal and pain improves. Plan is for re-evaluation. Patient's neuro nonfocal, will wait for symptoma tic improvement I suspect patient can be discharged home with PCP, ophthalmology follow-up. Also give him follow-up with neurology for headaches.Sign out to Dr. Rios pending reevaluation and suspected dc home. <REMY Bui - Last Filed: 12/23/22 01:34> Time: 01:26 <REMY Bui - Last Filed: 12/23/22 01:34> Medications Administered Discontinued Medications Generic Name Dose Route Start Last Admin Trade Name Freq PRN Reason Stop Dose Admin Cyclobenzaprine HCl 10 mg 12/23/22 10:01 12/23/22 10:08 Cyclobenzaprine Hcl 10 Mg Tablet PO 12/23/22 10:02 10 mg ONCE ONE Administration Diphenhydramine HCl 25 mg 12/22/22 22:42 12/22/22 22:56 Diphenhydramine Hcl 50 Mg/Ml Vial IVPUSH 12/22/22 22:43 25 mg ONCE ONE Administration Sodium Chloride 1,000 mls @ 999 mls/hr 12/22/22 22:45 12/23/22 01:30 Ns IV 12/22/22 23:45 Infused .Q1H1M [facility] Infusion Ketorolac Tromethamine 30 mg 12/22/22 22:43 12/22/22 22:57 Ketorolac Tromethamine 15 Mg/Ml Vial IVPUSH 12/22/22 22:44 30 mg ONCE ONE Administration Metoclopramide HCl 10 mg 12/22/22 22:42 12/22/22 22:57 Metoclopramide Hcl 10 Mg/2 Ml Vial IVPUSH 12/22/22 22:43 10 mg ONCE ONE Administration Morphine Sulfate 4 mg 12/23/22 00:32 12/23/22 00:54 Morphine Sulfate 4 Mg/Ml Cartridge IVPUSH 12/23/22 00:33 4 mg ONCE ONE Administration Protocol Naproxen 500 mg 12/23/22 10:01 12/23/22 10:08 Naproxen 500 Mg Tablet PO 12/23/22 10:02 500 mg ONCE ONE Administration <REMY Lira - Last Filed: 12/23/22 11:02> Medications Administered Discontinued Medications Generic Name Dose Route Start Last Admin Trade Name Freq PRN Reason Stop Dose Admin Cyclobenzaprine HCl 10 mg 12/23/22 10:01 12/23/22 10:08 Cyclobenzaprine Hcl 10 Mg Tablet PO 12/23/22 10:02 10 mg ONCE ONE Administration Diphenhydramine HCl 25 mg 12/22/22 22:42 12/22/22 22:56 Diphenhydramine Hcl 50 Mg/Ml Vial IVPUSH 12/22/22 22:43 25 mg ONCE ONE Administration Sodium Chloride 1,000 mls @ 999 mls/hr 12/22/22 22:45 12/23/22 01:30 Ns IV 12/22/22 23:45 Infused .Q1H1M [facility] Infusion Ketorolac Tromethamine 30 mg 12/22/22 22:43 12/22/22 22:57 Ketorolac Tromethamine 15 Mg/Ml Vial IVPUSH 12/22/22 22:44 30 mg ONCE ONE Administration Metoclopramide HCl 10 mg 12/22/22 22:42 12/22/22 22:57 Metoclopramide Hcl 10 Mg/2 Ml Vial IVPUSH 12/22/22 22:43 10 mg ONCE ONE Administration Morphine Sulfate 4 mg 12/23/22 00:32 12/23/22 00:54 Morphine Sulfate 4 Mg/Ml Cartridge IVPUSH 12/23/22 00:33 4 mg ONCE ONE Administration Protocol Naproxen 500 mg 12/23/22 10:01 12/23/22 10:08 Naproxen 500 Mg Tablet PO 12/23/22 10:02 500 mg ONCE ONE Administration <REMY Bui - Last Filed: 12/23/22 01:34> Medical Decision Making Medical Decision Making [facility] Narrative: [id number] 37-year-old male presents the emergency department for evaluation of headache, neck pain, blurred vision, dizziness times 2-3 weeks worsening over past fefw days. patient also noted lump to right lower aspect of neck. Physical exam with a nonfocal neuro exam. Cerebellar function intact. Regular rate and rhythm. Lungs clear. Abdomen soft nontender nondistended. Extraocular movements intact and pain-free. Patient is noted to have a soft mobile lump in the back of his neck, located on the right inferior aspect, likely lipoma. NIH stroke scale 0. Concerns for possible migraine, likely lipoma on neck. No signs of meningitis or encephalitis. unlikely stroke, posterior stroke, intracranial hemorrhage. Unlikely temporal ateritis. Plan labs, imaging, will give Reglan, Benadryl, Toradol for pain and re- evaluate. <REMY Bui - Last Filed: 12/23/22 01:34> Differential Diagnosis Differential Diagnoses: The differential diagnosis associated with the presentation includes <REMY Bui - Last Filed: 12/23/22 01:34> Concerns for possible migraine, likely lipoma on neck. No signs of meningitis. unlikely stroke, posterior stroke, intracranial hemorrhage. Unlikely temporal ateritis. <REMY Bui - Last Filed: 12/23/22 01:34> Admission/Observation Consideration of admission/observation: Escalation of care including admission/observation considered <REMY Bui - Last Filed: 12/23/22 01:34> Unlikely <REMY Bui Last Filed: 12/23/22 01:34> Lab Data [facility] Lab Attestation statement: I reviewed the patient's lab results. <REMY Bui Last Filed: 12/23/22 01:34> Result Diagrams: 12/22/22 22:06 12/22/22 22:06 <REMY Lira Last Filed: 12/23/22 11:02> Labs: Lab Results 12/22/22 12/22/22 12/22/22 Range/Units 22:06 22:06 22:06 WBC 8.1 (4.8-10.8) X10*3/uL RBC 4.39 L (4.60-5.80) X10*6/uL Hgb 13.2 L (14.0-18.0) g/dl Hct 38.6 L (42.0-52.0) % MCV 87.9 (80.0-98.0) fL MCH 30.1 (27.0-33.0) pg MCHC 34.2 (31.0-36.0) g/dl RDW 13.2 (11.0-16.0) % Plt Count 319 (160-400) X10*3/uL MPV 10.1 (9.4-12.4) fL Immature Gran % (Auto) 0.1 (0.0-0.4) % Neut % (Auto) 71.4 (45-73) % Lymph % (Auto) 21.3 (20-40) % [place] % (Auto) 5.0 (2-11) % Eos % (Auto) 1.7 (0-4) % Baso % (Auto) 0.5 (0-2) % Lymph # (Auto) 1.7 (1.2-4.9) X10*3/uL [place] # (Auto) 0.4 (0.1-1.2) X10*3/uL Eos # (Auto) 0.1 (0.0-0.4) X10*3/uL Baso # (Auto) 0.0 (0.0-0.2) X10*3/uL Abs Immat Gran (auto) 0.01 (0.00-0.03) X10*3/uL Absolute Neuts (auto) 5.8 (2.0-8.3) x10*3/uL Absolute Nucleated RBC 0.000 (0.0-0.012) X10*3/uL Nucleated RBC % (auto) 0.0 (0.0-0.2) /100WBC ESR (0-15) MM/HR PT 12.4 (10.0-13.1) SEC INR 1.1 (0.9-1.1) Sodium 146 H (135-145) mmol/L Potassium 3.8 (3.3-5.1) mmol/L Chloride 106 (96-108) mmol/L Carbon Dioxide 28 (22-29) mmol/L Anion Gap 16 (12-20) BUN 20 H (9-16) mg/dL Creatinine 1.19 (0.5-1.4) mg/dL Estim Creat Clear Calc 80.6 Estimated GFR > 60 Random Glucose 87 (60-115) mg/dL Calcium 9.4 (8.4-10.2) mg/dL Magnesium 2.2 (1.6-2.6) mg/dL Total Bilirubin 0.7 (0.0-1.0) mg/dL AST 162 H (5-37) U/L ALT 50 H (0-40) U/L Alkaline Phosphatase 55 (39-117) U/L C-Reactive Protein < 0.10 (< or = 0.50) mg/dL Total Protein 7.2 (6.5-8.0) g/dL Albumin 4.5 (3.5-5.0) g/dL Influenza Type A (PCR) (Negative) Influenza Type B (PCR) (Negative) RSV RNA Qual (PCR) (Negative) SARS-CoV-2 RNA (RT-PCR) (Negative) 12/22/22 12/22/22 Range/Units 22:06 22:06 WBC (4.8-10.8) X10*3/uL RBC (4.60-5.80) X10*6/uL Hgb (14.0-18.0) g/dl Hct (42.0-52.0) % MCV (80.0-98.0) fL MCH (27.0-33.0) pg MCHC (31.0-36.0) g/dl RDW (11.0-16.0) % Plt Count (160-400) X10*3/uL MPV (9.4-12.4) fL Immature Gran % (Auto) (0.0-0.4) % Neut % (Auto) (45-73) % Lymph % (Auto) (20-40) % [place] % (Auto) (2-11) % Eos % (Auto) (0-4) % Baso % (Auto) (0-2) % Lymph # (Auto) (1.2-4.9) X10*3/uL [place] # (Auto) (0.1-1.2) X10*3/uL Eos # (Auto) (0.0-0.4) X10*3/uL Baso # (Auto) (0.0-0.2) X10*3/uL Abs Immat Gran (auto) (0.00-0.03) X10*3/uL Absolute Neuts (auto) (2.0-8.3) x10*3/uL Absolute Nucleated RBC (0.0-0.012) X10*3/uL Nucleated RBC % (auto) (0.0-0.2) /100WBC ESR 2 (0-15) MM/HR PT (10.0-13.1) SEC INR (0.9-1.1) Sodium (135-145) mmol/L Potassium (3.3-5.1) mmol/L Chloride (96-108) mmol/L Carbon Dioxide (22-29) mmol/L Anion Gap (12-20) BUN (9-16) mg/dL Creatinine (0.5-1.4) mg/dL Estim Creat Clear Calc Estimated GFR Random Glucose (60-115) mg/dL Calcium (8.4-10.2) mg/dL Magnesium (1.6-2.6) mg/dL Total Bilirubin (0.0-1.0) mg/dL AST (5-37) U/L ALT (0-40) U/L Alkaline Phosphatase (39-117) U/L C-Reactive Protein (< or = 0.50) mg/dL Total Protein (6.5-8.0) g/dL Albumin (3.5-5.0) g/dL Influenza Type A (PCR) NEGATIVE (Negative) Influenza Type B (PCR) NEGATIVE (Negative) RSV RNA Qual (PCR) NEGATIVE (Negative) SARS-CoV-2 RNA (RT-PCR) NEGATIVE (Negative) <REMY Lira - Last Filed: 12/23/22 11:02> Lab Results 12/22/22 12/22/22 12/22/22 Range/Units 22:06 22:06 22:06 WBC 8.1 (4.8-10.8) X10*3/uL RBC 4.39 L (4.60-5.80) X10*6/uL Hgb 13.2 L (14.0-18.0) g/dl Hct 38.6 L (42.0-52.0) % MCV 87.9 (80.0-98.0) fL MCH 30.1 (27.0-33.0) pg MCHC 34.2 (31.0-36.0) g/dl RDW 13.2 (11.0-16.0) % Plt Count 319 (160-400) X10*3/uL MPV 10.1 (9.4-12.4) fL Immature Gran % (Auto) 0.1 (0.0-0.4) % Neut % (Auto) 71.4 (45-73) % Lymph % (Auto) 21.3 (20-40) % [place] % (Auto) 5.0 (2-11) % Eos % (Auto) 1.7 (0-4) % Baso % (Auto) 0.5 (0-2) % Lymph # (Auto) 1.7 (1.2-4.9) X10*3/uL [place] # (Auto) 0.4 (0.1-1.2) X10*3/uL Eos # (Auto) 0.1 (0.0-0.4) X10*3/uL Baso # (Auto) 0.0 (0.0-0.2) X10*3/uL Abs Immat Gran (auto) 0.01 (0.00-0.03) X10*3/uL Absolute Neuts (auto) 5.8 (2.0-8.3) x10*3/uL Absolute Nucleated RBC 0.000 (0.0-0.012) X10*3/uL Nucleated RBC % (auto) 0.0 (0.0-0.2) /100WBC ESR (0-15) MM/HR PT 12.4 (10.0-13.1) SEC INR 1.1 (0.9-1.1) Sodium 146 H (135-145) mmol/L Potassium 3.8 (3.3-5.1) mmol/L Chloride 106 (96-108) mmol/L Carbon Dioxide 28 (22-29) mmol/L Anion Gap 16 (12-20) BUN 20 H (9-16) mg/dL Creatinine 1.19 (0.5-1.4) mg/dL Estim Creat Clear Calc 80.6 Estimated GFR > 60 Random Glucose 87 (60-115) mg/dL Calcium 9.4 (8.4-10.2) mg/dL Magnesium 2.2 (1.6-2.6) mg/dL Total Bilirubin 0.7 (0.0-1.0) mg/dL AST 162 H (5-37) U/L ALT 50 H (0-40) U/L Alkaline Phosphatase 55 (39-117) U/L C-Reactive Protein < 0.10 (< or = 0.50) mg/dL Total Protein 7.2 (6.5-8.0) g/dL Albumin 4.5 (3.5-5.0) g/dL Influenza Type A (PCR) (Negative) Influenza Type B (PCR) (Negative) RSV RNA Qual (PCR) (Negative) SARS-CoV-2 RNA (RT-PCR) (Negative) 12/22/22 12/22/22 Range/Units 22:06 22:06 WBC (4.8-10.8) X10*3/uL RBC (4.60-5.80) X10*6/uL Hgb (14.0-18.0) g/dl Hct (42.0-52.0) % MCV (80.0-98.0) fL MCH (27.0-33.0) pg MCHC (31.0-36.0) g/dl RDW (11.0-16.0) % Plt Count (160-400) X10*3/uL MPV (9.4-12.4) fL Immature Gran % (Auto) (0.0-0.4) % Neut % (Auto) (45-73) % Lymph % (Auto) (20-40) % [place] % (Auto) (2-11) % Eos % (Auto) (0-4) % Baso % (Auto) (0-2) % Lymph # (Auto) (1.2-4.9) X10*3/uL [place] # (Auto) (0.1-1.2) X10*3/uL Eos # (Auto) (0.0-0.4) X10*3/uL Baso # (Auto) (0.0-0.2) X10*3/uL Abs Immat Gran (auto) (0.00-0.03) X10*3/uL Absolute Neuts (auto) (2.0-8.3) x10*3/uL Absolute Nucleated RBC (0.0-0.012) X10*3/uL Nucleated RBC % (auto) (0.0-0.2) /100WBC ESR 2 (0-15) MM/HR PT (10.0-13.1) SEC INR (0.9-1.1) Sodium (135-145) mmol/L Potassium (3.3-5.1) mmol/L Chloride (96-108) mmol/L Carbon Dioxide (22-29) mmol/L Anion Gap (12-20) BUN (9-16) mg/dL Creatinine (0.5-1.4) mg/dL Estim Creat Clear Calc Estimated GFR Random Glucose (60-115) mg/dL Calcium (8.4-10.2) mg/dL Magnesium (1.6-2.6) mg/dL Total Bilirubin (0.0-1.0) mg/dL AST (5-37) U/L ALT (0-40) U/L Alkaline Phosphatase (39-117) U/L C-Reactive Protein (< or = 0.50) mg/dL Total Protein (6.5-8.0) g/dL Albumin (3.5-5.0) g/dL Influenza Type A (PCR) NEGATIVE (Negative) Influenza Type B (PCR) NEGATIVE (Negative) RSV RNA Qual (PCR) NEGATIVE (Negative) SARS-CoV-2 RNA (RT-PCR) NEGATIVE (Negative) <REMY Bui - Last Filed: 12/23/22 01:34> Independent Interpretation I performed an independent interpretation of an: CT Scan (CT/CT head/brain wo IV con IMPRESSION: 1. No acute intracranial process seen. 2. Mild straightening of cervical lordosis likely spasm. No visible acute fracture, dislocation or subluxation seen.) <REMY Bui - Last Filed: 12/23/22 01:34> Radiology Impression Discussion of test interpretation with radiology: I have reviewed the radiologist's reading. <REMY Bui - Last Filed: 12/23/22 01:34> External Record Review External record reviewed: Inpatient record, Office record, Outpatient record, Prior outpatient labs, Prior outpatient radiology, Primary care record and Outside ED record <REMY Bui - Last Filed: 12/23/22 01:34> Tests considered The following testing was considered but not selected: patient's neuro exam is nonfocal no indication for CTA or MRI of the head. <REMY Bui - Last Filed: 12/23/22 01:34> Core Measures AMI core measures followed: Yes <REMY Bui - Last Filed: 12/23/22 01:34> Measure exclusions: not indicated <REMY Bui - Last Filed: 12/23/22 01:34> Critical Care Time Critical Care Time Critical Care Time: No <REMY Bui - Last Filed: 12/23/22 01:34> Discharge Plan Discharge Clinical Impression: Headache, Mass in neck <REMY Lira - Last Filed: 12/23/22 11:02> Patient Disposition: Home, Self-Care <REMY Lira - Last Filed: 12/23/22 11:02> Instructions: General Headache (ED) <REMY Lira - Last Filed: 12/23/22 11:02> Additional Instructions: Take your medications as prescribed. If you were prescribed antibiotics today, it is important that you take your medication to their entirety, do not skip any doses, do not finish them early. Follow-up with your primary care provider this week. The lump on neck is likely a lipoma, please follow-up with general surgery for this if its bothering you. Follow up with neurology for headaches information below. Follow up with opthamology for eye complaints. Return to the emergency department with new or worsening symptoms. Such as fevers, chills, chest pain, shortness of breath, nausea, vomiting, dizziness, headache, vision changes, lethargy In case of emergency call 911 The mass on your neck is likely a lipoma or benign fatty tumor, please follow- up with General surgery if this is bothering you. <REMY Lira - Last Filed: 12/23/22 11:02> Prescriptions: New ketorolac 10 mg tablet 10 mg PO TID PRN (Reason: pain) 5 Days Qty: 15 0RF diphenhydramine HCl [Benadryl] 25 mg capsule 25 mg PO TID PRN (Reason: allergic reaction) Qty: 20 0RF metoclopramide HCl [Reglan] 10 mg tablet 10 mg PO Q6H PRN (Reason: headache) Qty: 20 0RF No Action prednisone 20 mg tablet 20 mg PO DAILY 5 Days Qty: 5 0RF hydromorphone [Dilaudid] 2 mg tablet 2 mg PO Q4-6H PRN (Reason: pain) Qty: 8 0RF Rx Instructions: Partial Fill upon patient request. ketorolac 10 mg tablet 10 mg PO Q6H PRN (Reason: pain) 5 Days Qty: 20 0RF ibuprofen 600 mg tablet 600 mg PO Q6H PRN (Reason: pain) Qty: 30 0RF oxycodone 5 mg tablet 5 mg PO Q4H PRN (Reason: pain) Qty: 10 0RF Rx Instructions: Partial Fill upon patient request. ondansetron 4 mg tablet,disintegrating 4 mg PO Q6H PRN (Reason: nausea and vomiting) Qty: 10 0RF tamsulosin [Flomax] 0.4 mg capsule 0.4 mg PO BEDTIME Qty: 30 0RF morphine 15 mg tablet 15 mg PO Q8H PRN (Reason: pain) Qty: 10 0RF Rx Instructions: Partial Fill upon patient request. ondansetron 4 mg tablet,disintegrating 4 mg PO Q8H PRN (Reason: nausea and vomiting) Qty: 10 0RF prednisone 20 mg tablet 20 mg PO DAILY 5 Days Qty: 5 0RF tamsulosin [Flomax] 0.4 mg capsule 0.4 mg PO DAILY Qty: 14 0RF <REMY Lira - Last Filed: 12/23/22 11:02> Referrals: [facility] [place] General Surgeons [Provider Group] - 2 days [facility] [place] Neuro/Sleep [Provider Group] - 1 week Emmanuel Fletcher [Physician] - 1 week Physician,None [Primary Care Provider] - 2 days <REMY Lira - Last Filed: 12/23/22 11:02> Stand Alone Forms: Work/School Release <REMY Lira - Last Filed: 12/23/22 11:02>
[2022-12-22 22:10] LABS: MANUAL DIFF FLAG NO
[2022-12-22 22:13] LABS: Basophils Percent Auto 0.5 % (0-2); Eosinophils Absolute Auto 0.1 X10*3/uL (0.0-0.4); Eosinophils Percent Auto 1.7 % (0-4); Hematocrit 38.6 % (42.0-52.0); Hemoglobin 13.2 g/dl (14.0-18.0); Imm Gran Abs Auto 0.01 X10*3/uL (0.00-0.03); Imm Gran Pct Auto 0.1 % (0.0-0.4); Lymphocytes Absolute Auto 1.7 X10*3/uL (1.2-4.9); Lymphocytes Percent Auto 21.3 % (20-40); Mean Corpuscular HGB Conc 34.2 g/dl (31.0-36.0); Mean Corpuscular Hemoglobin 30.1 pg (27.0-33.0); Mean Corpuscular Volume 87.9 fL (80.0-98.0); Mean Platelet Volume 10.1 fL (9.4-12.4); Monocytes Absolute Auto 0.4 X10*3/uL (0.1-1.2); Neutrophils Absolute Auto 5.8 x10*3/uL (2.0-8.3); Neutrophils Percent Auto 71.4 % (45-73); Platelet Count 319 X10*3/uL (160-400); Red Blood Count 4.39 X10*6/uL (4.60-5.80); Red Cell Distribution Width 13.2 % (11.0-16.0); White Blood Count 8.1 X10*3/uL (4.8-10.8)
[2022-12-22 22:18] LABS: INTERNATIONAL NORM RATIO 1.1 (0.9-1.1); Prothrombin Time 12.4 SEC (10.0-13.1)
[2022-12-22 22:38] VITALS: BP 144/93; PULSE 89; RESP 20; O2SAT 99
[2022-12-22 22:47] LABS: Alanine Aminotransferase 50 U/L (0-40); Albumin Level 4.5 g/dL (3.5-5.0); Alkaline Phosphatase 55 U/L (39-117); Anion Gap 16 (12-20); Aspartate Amino Transferase 162 U/L (5-37); Bilirubin Total 0.7 mg/dL (0.0-1.0); Blood Urea Nitrogen 20 mg/dL (9-16); Calcium 9.4 mg/dL (8.4-10.2); Carbon Dioxide 28 mmol/L (22-29); Chloride 106 mmol/L (96-108); Creatinine Clr Calc Pharmacy 80.6; Estimated Glomerular Filt Rate > 60; Glucose Random 87 mg/dL (60-115); Magnesium 2.2 mg/dL (1.6-2.6); Potassium 3.8 mmol/L (3.3-5.1); Sodium 146 mmol/L (135-145); Total Protein 7.2 g/dL (6.5-8.0)
[2022-12-22 22:49] LABS: Influenza A PCR NEGATIVE (Negative); Influenza B PCR NEGATIVE (Negative); Resp Syncy Virus RNA Qual PCR NEGATIVE (Negative); SARS COV2 PCR INHOUSE NEGATIVE (Negative)
[2022-12-22] MEDS: diphenhydrAMINE HCL 50 MG/ML VIAL 25 MG IVPUSH (22:56)
[2022-12-22] MEDS: Ketorolac Tromethamine 15 MG/ML VIAL 30 MG IVPUSH (22:57)
[2022-12-22] MEDS: Metoclopramide HCl 10 MG/2 ML VIAL IVPUSH (22:57)
[2022-12-22] MEDS: 0.9 % Sodium Chloride 1,000 ML 999 ML IV (22:58)
[2022-12-23 00:54] VITALS: RESP 18
[2022-12-23] MEDS: Morphine Sulfate 4 MG/ML CARTRIDGE IVPUSH (00:54)
[2022-12-23 00:58] VITALS: BP 119/76; PULSE 66; RESP 16; O2SAT 96
[2022-12-23 01:42] LABS: C Reactive Protein < 0.10 mg/dL (< or = 0.50)
--- NOTE | 2022-12-23 02:04 | PC.NURSE ---
Pt A&Ox4, reports 10/10 constant increasing headache with neck pain. Pt reports unable to sleep r/t pain, no pain relief with PO Motrin taken at home. IV line started, meds given as documented. Reports no effectiveness to pain meds given.
[2022-12-23 02:11] LABS: Erythrocyte Sedimentation Rate 2 MM/HR (0-15)
[2022-12-23 04:27] VITALS: BP 113/69; PULSE 75; RESP 16; O2SAT 97
--- NOTE | 2022-12-23 04:32 | PC.NURSE ---
Pt appears to be sleeping at this time, reports 8/10 headache. VSS.
--- NOTE | 2022-12-23 05:45 | MHC.EDTECH ---
Acuity Test done results given to provider
[2022-12-23 06:11] VITALS: BP 100/58; PULSE 59; RESP 16; O2SAT 96
--- NOTE | 2022-12-23 07:29 | PC.NURSE ---
resumed care of patient this AM, currently sleeping in bed. Safety measures in place.
[2022-12-23 08:49] VITALS: BP 117/54; PULSE 62; RESP 16; O2SAT 96
[2022-12-23] MEDS: NaPROXEN 500 MG TABLET PO (10:08)
[2022-12-23] MEDS: Cyclobenzaprine HCl 10 MG TABLET PO (10:08)
[2022-12-23 12:00] VITALS: BP 124/78; PULSE 77; RESP 16; TEMP 36.7; O2SAT 99
== END 2022-12-23 12:08 | disposition home or self-care (01) ==
PROVIDERS: Physician Assistant; Physician Assistant Medical; Emergency Provider Emergency Medicine Emergency Medical Services
DX: R22.1 Localized swelling, mass and lump, neck (principal); R51.9 Headache, unspecified; Z20.822 Contact with and (suspected) exposure to COVID-19; Z20.828 Contact with and (suspected) exposure to other viral communicable diseases; Z79.899 Other long term (current) drug therapy
CPT/HCPCS: 0241U; 70450; 72125; 80053; 83735; 85025; 85610; 85652; 86140; 96361; 96374; 96375; 99285; J1200; J1885; J2270; J2765

== ENCOUNTER → 2022-12-24 11:27 | Outpatient (BNVA) | payer OTHER, SELFPAY | PROVIDERS: Visit Provider Surgery | DX: R22.9 Localized swelling, mass and lump, unspecified (principal) | CPT/HCPCS: 99202 ==

== ENCOUNTER 2023-01-03 19:25 | Emergency (ER) | payer OTHER, SELFPAY ==
--- NOTE | ~2023-01-03 | XR_ITS ---
EXAMINATION: XR KNEE, RIGHT CLINICAL INFORMATION: Right knee pain COMPARISON: None available. TECHNIQUE: Four views of the right knee. FINDINGS: Bones and soft tissues are normal. No fracture or joint effusion. Alignment is anatomic. Joint spaces are well maintained. No abnormal soft tissue calcification. XR/XR knee RT 3V IMPRESSION: Normal right knee.
--- NOTE | 2023-01-03 19:29 | ED_ITS ---
HPI - Extremity Injury (Lower) General Chief Complaint: Extremity Injury, Lower <REMY Holliday - Last Filed: 01/03/23 19:33> Stated Complaint: broken knee cap? <REMY Holliday - Last Filed: 01/03/23 19:33> Time Seen by Provider: 01/03/23 20:14 <REMY Holliday - Last Filed: 01/03/23 19:33> Source: patient <Cielo Rios MD - Last Filed: 01/03/23 20:25> Mode of arrival: ambulatory <Cielo Rios MD - Last Filed: 01/03/23 20:25> Limitations: no limitations <Cielo Rios MD - Last Filed: 01/03/23 20:25> History of Present Illness HPI Narrative: Patient comes in the emergency room complaining of right knee pain for 1 week. Patient states that he was ice skating and he fell onto his right knee. Patient comes today requesting an x-ray to check if it is broken or not. Patient has been able to walk and bear weight on his affected leg. Patient denies any other injuries <Cielo Rios MD - Last Filed: 01/03/23 20:25> Related Data Home Medications: Previous Rx's Medication Instructions Recorded tamsulosin 0.4 mg capsule (Flomax) 0.4 mg PO BEDTIME #30 caps 03/19/22 tamsulosin 0.4 mg capsule (Flomax) 0.4 mg PO DAILY #14 caps 03/27/22 hydromorphone 2 mg tablet 2 mg PO Q4-6H PRN pain #8 tabs 03/30/22 (Dilaudid) ketorolac 10 mg tablet 10 mg PO Q6H PRN pain 5 days #20 03/30/22 tabs cyclobenzaprine 10 mg tablet 10 mg PO TID PRN muscle spasm #14 12/23/22 tabs diphenhydramine HCl 25 mg capsule 25 mg PO TID PRN allergic reaction 12/23/22 (Benadryl) #20 caps ketorolac 10 mg tablet 10 mg PO TID PRN pain 5 days #15 12/23/22 tabs metoclopramide HCl 10 mg tablet 10 mg PO Q6H PRN headache #20 tabs 03/14/23 (Reglan) <REMY Holliday - Last Filed: 01/03/23 19:33> Allergies/Adverse Reactions: Allergies Allergy/AdvReac Type Severity Reaction Status Date / Time doxycycline Allergy Difficulty Verified 12/22/22 18:29 Breathing tramadol AdvReac Nausea Verified 12/22/22 18:29 <REMY Holliday - Last Filed: 01/03/23 19:33> Review of Systems Review of Systems: Constitutional : No Weight loss, No Fever, No Chills, No Night Sweats, No Fatigue, No Malaise ENT/Mouth : No Hearing loss, No Ear Pain, No Nasal Congestion, No Sinus Pain, No Hoarseness, No sore throat, No Rhinorrhea, No Swallowing Difficulty Eyes: No Eye Pain, No Swelling, No Redness, No Foreign Body, No Discharge, No Vision Changes Cardiovascular : No Chest Pain, No SOB, No Dyspnea on Exertion, No Orthopnea, No Edema, No Palpitations Respiratory : No Cough, No Sputum, No Wheezing, No Smoke Exposure, No Dyspnea Gastrointestinal : No Nausea, No Vomiting, No Diarrhea, No Constipation, No abdominal Pain, No Hematochezia, No Melena Genitourinary : no irregular bleeding, No Dysuria, No Urinary Frequency, No Hematuria, No Urinary Incontinence, No Urgency, No Flank Pain, No Urinary Flow Changes, No Hesitancy Musculoskeletal : Complaining of right knee cap pain, No Myalgias, No Joint Sw elling Skin : No Skin Lesions, No rash Neuro : No Weakness, No Numbness, No Paresthesias, No Loss of Consciousness, No Dizziness, No Headache Psych : No Anxiety/Panic, No Depression, No SI/HI/AH/VH, No Social Issues, Heme/Lymph: No Bruising, No Bleeding,No Lymphadenopathy Endocrine : No Polyuria, No Polydipsia, No Temperature Intolerance <Cielo Rios MD - Last Filed: 01/03/23 20:25> [facility] Past Medical History Medical History: Medical History Subcutaneous mass <REMY Holliday - Last Filed: 01/03/23 19:33> Surgical History: Surgical History History of shoulder surgery <REMY Holliday - Last Filed: 01/03/23 19:33> Social History Social History: Social History Alcohol intake: never Patient Tobacco Use Status: Never used Tobacco Advance Directives: No Advance Directives Information Provided: No <REMY Holliday - Last Filed: 01/03/23 19:33> Physical Exam Vital Signs: Vital Signs: Last Vital Signs Temp 97.9 F 01/03/23 19:31 Pulse 111 H 01/03/23 19:31 Resp 18 01/03/23 19:31 BP 120/82 01/03/23 19:31 Pulse Ox 99 01/03/23 19:31 O2 Del Method Room Air 01/03/23 19:31 BMI result Body Mass Index 26.1 <REMY Holliday - Last Filed: 01/03/23 19:33> Vital Signs: Last Vital Signs Temp 97.9 F 01/03/23 19:31 Pulse 111 H 01/03/23 19:31 Resp 18 01/03/23 19:31 BP 120/82 01/03/23 19:31 Pulse Ox 99 01/03/23 19:31 O2 Del Method Room Air 01/03/23 19:31 BMI result Body Mass Index 26.1 <Cielo Rios MD - Last Filed: 01/03/23 20:25> Const: Other: Appearance: Alert. Oriented X3. No acute distress. Eyes: Pupils equal, round and reactive to light. ENT: Pharynx normal. Neck: Normal inspection. Neck supple. No lymph nodes noted. No crepitus CVS: Normal heart rate and rhythm. Pulses normal. Normal S1 and S2 Respiratory: No respiratory distress. Breath sounds normal. No Wheezing. No rales Abdomen: Soft and nontender. No rigidity. No distention. Skin: Skin warm and dry. Normal skin color. Normal skin turgor. Extremities: No lower extremity edema. No Lacerations. No Rash, pain to palpation over the right patella, no effusion, able to flex and extend the knee, able to bear weight and walk Neuro: Oriented X 3. No motor deficit. No sensory deficit. Moving all extremities. No slurred speech. CN 2 through 12 grossly intact Psych: calm, cooperative, normal affect <Cielo Rios MD - Last Filed: 01/03/23 20:25> Course Course Course Narrative: RME--37 yo M with no sig PMHx c/o right knee pain and crack s/p falling directly on knee while ice skating last Thursday. Has been ambulating with pain. Admits to assoc numbness Ambulated w/steady gait. R knee with palpable deformity and ttp XR ordered <REMY Holliday - Last Filed: 01/03/23 19:33> Medical Decision Making Medical Decision Making [facility] Narrative: -patient declined any pain medication -x-ray unremarkable -patient ambulatory <Cielo Rios MD - Last Filed: 01/03/23 20:25> Differential Diagnosis Differential Diagnoses: The differential diagnosis associated with the presentation includes (Patellar fracture, contusion, effusion) <Cielo Rios MD - Last Filed: 01/03/23 20:25> Independent Interpretation I performed an independent interpretation of an: Plain X-Ray (X-ray of the right knee my interpretation: No fracture or dislocation) <Cielo Rios MD - Last Filed: 01/03/23 20:25> Radiology Impression Discussion of test interpretation with radiology: I have reviewed the radiologist's reading. <Cielo Rios MD - Last Filed: 01/03/23 20:25> Radiologist Impression: ones and soft tissues are normal. No fracture or joint effusion. Alignment is anatomic. Joint spaces are well maintained. No abnormal soft tissue calcification.? XR/XR knee RT 3V IMPRESSION: Normal right knee. ? <Cielo Rios MD - Last Filed: 01/03/23 20:25> Discharge Plan Discharge Clinical Impression: Contusion of right patella <REMY Holliday - Last Filed: 01/03/23 19:33> Patient Disposition: Home, Self-Care <REMY Holliday - Last Filed: 01/03/23 19:33> Instructions: Knee Pain (ED) <REMY Holliday - Last Filed: 01/03/23 19:33> Additional Instructions: Please follow-up with your primary care physician tomorrow. If you have any worsening or new symptoms, please return to the emergency room or call 911 <REMY Holliday - Last Filed: 01/03/23 19:33> Prescriptions: No Action hydromorphone [Dilaudid] 2 mg tablet 2 mg PO Q4-6H PRN (Reason: pain) Qty: 8 0RF Rx Instructions: Partial Fill upon patient request. ketorolac 10 mg tablet 10 mg PO Q6H PRN (Reason: pain) 5 Days Qty: 20 0RF ketorolac 10 mg tablet 10 mg PO TID PRN (Reason: pain) 5 Days Qty: 15 0RF diphenhydramine HCl [Benadryl] 25 mg capsule 25 mg PO TID PRN (Reason: allergic reaction) Qty: 20 0RF metoclopramide HCl [Reglan] 10 mg tablet 10 mg PO Q6H PRN (Reason: headache) Qty: 20 0RF cyclobenzaprine 10 mg tablet 10 mg PO TID PRN (Reason: muscle spasm) Qty: 14 0RF tamsulosin [Flomax] 0.4 mg capsule 0.4 mg PO BEDTIME Qty: 30 0RF tamsulosin [Flomax] 0.4 mg capsule 0.4 mg PO DAILY Qty: 14 0RF <REMY Holliday - Last Filed: 01/03/23 19:33>
[2023-01-03 19:31] VITALS: BP 120/82; PULSE 111; RESP 18; TEMP 36.6; O2SAT 99; BMI 26.1
== END 2023-01-03 20:32 | disposition home or self-care (01) ==
PROVIDERS: Emergency Provider Emergency Medicine
DX: S80.01XA Contusion of right knee, initial encounter (principal); W00.2XXA Other fall from one level to another due to ice and snow, initial encounter; Y93.21 Activity, ice skating; Y92.330 Ice skating rink (indoor) (outdoor) as the place of occurrence of the external cause; Y99.9 Unspecified external cause status
CPT/HCPCS: 73562; 99282; 99283

== ENCOUNTER 2023-03-16 23:29 | Emergency (ER) | payer OTHER, SELFPAY ==
--- NOTE | ~2023-03-16 | CT_ITS ---
EXAMINATION: CT ABDOMEN AND PELVIS WITHOUT CONTRAST CLINICAL INFORMATION: Bilateral flank pain. COMPARISON: CT scan of the abdomen and pelvis dated 11/10/2022. TECHNIQUE: Multidetector volumetric imaging was performed from the superior aspect of the liver through the pubic symphysis. Sagittal and coronal reformatted images were obtained on the technologist's workstation. Lack of intravenous and oral contrast limits visceral evaluation. This CT examination was performed using dose optimization techniques as appropriate, variously including the following: *Automated exposure control *Adjustment of mA and/or kV according to patient size (this includes techniques or standardized protocols for targeted exams where dose is matched to indication/reason for exam; i.e. extremities or head) *Use of iterative reconstruction technique DLP: 425 mGy-cm FINDINGS: LUNG BASES: The visualized lung bases are unremarkable. LIVER, GALLBLADDER, AND BILIARY TREE: Unremarkable. PANCREAS: Unremarkable. SPLEEN: Unremarkable. ADRENAL GLANDS: Unremarkable. KIDNEYS AND URETERS: Several punctate intrarenal calculi are seen bilaterally with mild increased medullary attenuation. Small high attenuation cyst in the upper pole of the right kidney is not significantly changed measuring 1.0 cm (image 42, series 5). No hydroureteronephrosis. BLADDER: Unremarkable. GASTROINTESTINAL TRACT: The stomach, small bowel and appendix are unremarkable. The colon shows mild diverticulosis distally in the sigmoid colon without surrounding abnormality. The rectum is unremarkable. ABDOMINAL WALL: No significant hernia is appreciated. LYMPH NODES: No lymphadenopathy. VASCULAR: Unremarkable. PELVIC VISCERA: Unremarkable. OSSEOUS STRUCTURES: Unremarkable. CT/CT abdomen pelvis wo IV con IMPRESSION: 1. No acute abnormality explain the patient's pain. Nonobstructing intrarenal calculi bilaterally. No hydroureteronephrosis. 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 Small right upper pole renal cyst demonstrates benign features without significant change not requiring follow-up at this time. 2. Mild sigmoid diverticulosis without evidence for acute diverticulitis.
[2023-03-16 23:59] VITALS: BP 118/77; PULSE 69; RESP 16; TEMP 36.9; O2SAT 96; BMI 24.5
[2023-03-17] VITALS (7 sets, daily range): BP systolic 95–115; BP diastolic 53–69; PULSE 57–88; RESP 14–16; TEMP 36.4–36.7; O2SAT 96–98
[2023-03-17 00:57] LABS: MANUAL DIFF FLAG NO
[2023-03-17 00:58] LABS: Basophils Absolute Auto 0.1 X10*3/uL (0.0-0.2); Basophils Percent Auto 0.8 % (0-2); Eosinophils Absolute Auto 0.3 X10*3/uL (0.0-0.4); Eosinophils Percent Auto 4.2 % (0-4); Hematocrit 38.9 % (42.0-52.0); Hemoglobin 13.1 g/dl (14.0-18.0); Imm Gran Abs Auto 0.01 X10*3/uL (0.00-0.03); Imm Gran Pct Auto 0.2 % (0.0-0.4); Lymphocytes Absolute Auto 1.6 X10*3/uL (1.2-4.9); Lymphocytes Percent Auto 26.1 % (20-40); Mean Corpuscular HGB Conc 33.7 g/dl (31.0-36.0); Mean Corpuscular Hemoglobin 30.3 pg (27.0-33.0); Mean Corpuscular Volume 89.8 fL (80.0-98.0); Mean Platelet Volume 10.2 fL (9.4-12.4); Monocytes Absolute Auto 0.4 X10*3/uL (0.1-1.2); Monocytes Percent Auto 6.6 % (2-11); Neutrophils Absolute Auto 3.9 x10*3/uL (2.0-8.3); Neutrophils Percent Auto 62.1 % (45-73); Platelet Count 267 X10*3/uL (160-400); Red Blood Count 4.33 X10*6/uL (4.60-5.80); Red Cell Distribution Width 12.9 % (11.0-16.0); White Blood Count 6.2 X10*3/uL (4.8-10.8)
--- NOTE | 2023-03-17 00:58 | MHC.EDTECH ---
PATIENT URINE SAMPLE COLLECTED ,BLOOD DRAWN AND SENT TO LAB ,VITALS SIGN RE CHECK .
[2023-03-17 01:00] LABS: Appearance Urine Clear; Color Urine Yellow; Glucose Urine UA Negative (Negative); Leukocyte Esterase Urine Negative (Negative); Nitrite Urine Negative (Negative); PH 6.5 (5.0-9.0); Specific Gravity - Urine 1.025 (1.005-1.025); Urine Blood Negative (Negative); Urine Ketones Trace mg/dL (Negative); Urine Protein Negative (Neg-Trace)
[2023-03-17 01:13] LABS: Alanine Aminotransferase 19 U/L (0-40); Albumin Level 4.2 g/dL (3.5-5.0); Alkaline Phosphatase 48 U/L (39-117); Anion Gap 13 (12-20); Aspartate Amino Transferase 18 U/L (5-37); Bilirubin Total 0.3 mg/dL (0.0-1.0); Blood Urea Nitrogen 19 mg/dL (9-16); Calcium 9.1 mg/dL (8.4-10.2); Carbon Dioxide 26 mmol/L (22-29); Chloride 109 mmol/L (96-108); Creatinine Clr Calc Pharmacy 82.7; Estimated Glomerular Filt Rate > 60; Glucose Random 99 mg/dL (60-115); Potassium 3.8 mmol/L (3.3-5.1); Sodium 144 mmol/L (135-145); Total Protein 6.9 g/dL (6.5-8.0)
--- NOTE | 2023-03-17 02:36 | PC.NURSE ---
Patient received in bed with eyes open patient stated he is in pain 05/21 due to patient has lower back pain patient stated he has a history of kidney stones patient is AAOX4 patient was in position when approached in bed patient vitals are stabe at this time patient is awaiting to be seen by the doctor for further care patient does not smoke or drink patient will continue to be monitored for safety
--- NOTE | 2023-03-17 06:39 | ED_ITS ---
HPI - General Adult General Chief complaint: Back Pain/Injury Stated complaint: kidney issues Time Seen by Provider: 03/17/23 06:35 Source: patient Mode of arrival: ambulatory Limitations: no limitations History of Present Illness HPI narrative: Patient is a 37 year old assigned male at with a history of kidney stones presenting to the emergency department today with bilateral lower back pain that is radiating into his groin. Patient states that he is having bilateral back pain that radiates into his groin over the last 3-4 days and it feels as though it is a kidney stone. Patient states that he has had mild nausea. Patient denies any dizziness, lightheadedness, abdominal pain, vomiting, fever, chills, blurry vision, double vision, loss of vision, chest pain, difficulty breathing, shortness of breath, night sweats, pain with urination, increased urinary frequency, increased urinary urgency, blood in his urine or stool, syncope or a near syncopal episode, recent trauma or falls, bowel incontinence, bladder incontinence, bowel retention, bladder retention, or any other complaints at this time. Onset (ago): day(s) (3-4) Location: back Severity: mild Severity scale (1-10): 4 Quality: aching and dull Pain Consistency: constant Relieving factors: none Exacerbating factors: none Associated symptoms: nausea/vomiting Treatments prior to arrival: none Related Data Previous Rx's Medication Instructions Recorded tamsulosin 0.4 mg capsule (Flomax) 0.4 mg PO BEDTIME #30 caps 03/19/22 tamsulosin 0.4 mg capsule (Flomax) 0.4 mg PO DAILY #14 caps 03/27/22 hydromorphone 2 mg tablet 2 mg PO Q4-6H PRN pain #8 tabs 03/30/22 (Dilaudid) ketorolac 10 mg tablet 10 mg PO Q6H PRN pain 5 days #20 03/30/22 tabs cyclobenzaprine 10 mg tablet 10 mg PO TID PRN muscle spasm #14 12/23/22 tabs diphenhydramine HCl 25 mg capsule 25 mg PO TID PRN allergic reaction 12/23/22 (Benadryl) #20 caps ketorolac 10 mg tablet 10 mg PO TID PRN pain 5 days #15 12/23/22 tabs metoclopramide HCl 10 mg tablet 10 mg PO Q6H PRN headache #20 tabs 12/23/22 (Reglan) magnesium citrate 150 ml PO DAILY PRN constipation 03/17/23 #296 mL Allergies Allergy/AdvReac Type Severity Reaction Status Date / Time doxycycline Allergy Difficulty Verified 12/22/22 18:29 Breathing tramadol AdvReac Nausea Verified 12/22/22 18:29 Review of Systems Constitutional: Constitutional: Reports no additional constitutional complaints, Denies chills, Denies fever(s) and Denies night sweats Eyes: Eyes: Reports no additional eye complaints, Denies blurry vision, Denies change in vision, Denies diplopia, Denies eye discharge, Denies loss of vision and Denies eye pain ENT: Denies dizziness Cardiovascular: Cardiovascular: Reports no additional cardiovascular complaints, Denies chest pain, Denies lightheadedness, Denies Loss of Consc iousness and Denies dyspnea Respiratory: Respiratory: Reports no additional respiratory complaints and Denies dyspnea Gastrointestinal: Gastrointestinal: Reports no additional gastrointestinal complaints, Reports abdominal pain, Denies melena, Denies hematochezia, Denies change in bowel habits and Denies change in stool character Genitourinary: Genitourinary: Reports no additional male genitourinary complaints, Denies hematuria, Denies oliguria, Denies difficulty urinating, Denies dysuria, Reports flank pain, Denies urinary frequency, Denies urinary hesitancy, Denies urinary incontinence and Denies urinary urgency Musculoskeletal: Musculoskeletal: Reports no additional musculoskeletal complaints, Reports back pain, Denies numbness and Denies tingling Neurologic: Denies dizziness, Denies loss of vision, Denies numbness and Denies tingling Psychiatric: Psychiatric: Reports no additional psychiatric complaints Endocrine: Endocrine: Reports no additional endocrine complaints Hematologic/Lymphatic: Hematologic/Lymphatic: Reports no additional hematologic/lymphatic complaints Allergic/Immunologic: Allergic/Immunologic: Reports no additional allergic/immunologic complaints [facility] Past Medical History Attestation statement: The following information was validated with the patient. Source: old records reviewed and nursing notes reviewed Medical History Subcutaneous mass Surgical History History of shoulder surgery Social History Social History Alcohol intake: never Patient Tobacco Use Status: Never used Tobacco Smoked in Last 30 Days: No Use of substances other than those prescribed or required for medical reasons: No Advance Directives: No Advance Directives Information Provided: Yes Physical Exam ED Vital Signs: Vital Signs - 24 hr 03/16/23 23:59 03/17/23 00:49 03/17/23 02:23 Temperature 98.4 F 98.0 F 97.6 F Pulse Rate 69 63 88 Respiratory Rate 16 16 16 Blood Pressure 118/77 115/56 L 115/56 L Pulse Oximetry 96 98 97 Oxygen Delivery Method Room Air Room Air Room Air 03/17/23 05:06 03/17/23 06:23 03/17/23 07:48 Temperature 97.9 F 98.0 F Pulse Rate 58 60 60 Respiratory Rate 16 16 16 Blood Pressure 108/69 104/53 L 114/59 L Pulse Oximetry 96 98 Oxygen Delivery Method Room Air Room Air 03/17/23 08:11 03/17/23 11:02 Temperature 97.7 F 97.9 F Pulse Rate 62 57 Respiratory Rate 16 14 Blood Pressure 95/59 L 103/57 L Pulse Oximetry 98 98 Oxygen Delivery Method Room Air Room Air BMI result Body Mass Index 24.5 Const General: cooperative, no acute distress, alert and awake Nutritional Appearance: well nourished Orientation/consciousness: patient oriented x3 Limitations: no limitations HENMT Head: Yes normal to inspection and Yes atraumatic Ears: hearing grossly normal bilaterally and external ears normal General nose exam: Normal external nose present, no nasal discharge noted and no epistaxis Face and sinus: Yes normal facial exam, No abrasion and No laceration Mouth: Normal oral and palatal mucosa present, no drooling and no muffled voice Eyes General: appearance normal, both eyes and all related structures Periorbital: periorbital findings normal Eyelids: Yes eyelids normal Conjunctivae: conjunctivae normal Pupils: Equal, round and reactive pupils present EOM: EOMs intact bilaterally Neck Neck: Yes normal visual inspection, Yes full ROM and Yes no lymphadenopathy Chest Chest palpation & inspection: normal inspection of the chest Resp Effort & Inspection: normal respiratory effort and able to speak in complete sentences Auscultation: clear to auscultation bilaterally Cardio Rate: regular rate Rhythm: regular rhythm GI Inspection: Yes normal to inspection Palpation (GI): Soft to palpation, not firm, nontender and no guarding Neuro General: patient oriented x3 and moves all extremities Cranial nerves: Yes Equal, round and reactive pupils present Cognition (Neuro): normal cognition Motor exam (neuro): 5/5 motor strength present throughout Sensory Exam: Normal double simultaneous stimulation for sensation Coordination: [id number] test normal Extrem General: Yes normal to inspection, Yes full ROM and Yes capillary refill normal Psych Appearance: grossly normal Mental Status: mental status grossly normal Affect: normal affect Attitude: cooperative Thought process: Normal thought process present Thought content: Normal thought content present Insight: Good insight present (Psych) Medications Administered Discontinued Medications Generic Name Dose Route Start Last Admin Trade Name Freq PRN Reason Stop Dose Admin Sodium Chloride 1,000 mls @ 999 mls/hr 03/17/23 08:45 03/17/23 09:58 Ns IV 03/17/23 09:45 Infused .Q1H1M CALOS Infusion Ketorolac Tromethamine 15 mg 03/17/23 06:45 03/17/23 07:49 Ketorolac Tromethamine 15 Mg/Ml Vial IM 03/17/23 06:46 15 mg ONCE ONE Administration Ondansetron HCl 4 mg 03/17/23 06:45 03/17/23 07:49 Ondansetron Odt 4 Mg Tab.Rapdis TRANSLINGU 03/17/23 06:46 4 mg ONCE ONE Administration Sodium Biphosphate/Sodium Phosphate 133 ml 03/17/23 08:57 03/17/23 09:58 Sodium Phosphate,[place]ountain-Dibasic 133 Ml Enema [place] 03/17/23 08:58 133 ml ONCE ONE Administration Medical Decision Making Medical Decision Making [facility] Narrative: Patient is a 37 year old assigned male at with a history of kidney stones presenting to the emergency department today with abdominal and flank pain. Patient's physical exam was unremarkable. Patient's blood work was unremarkable. Patient's urine showed no acute process. Patient's CT abdomen/pelvis showed no acute process however, when reviewing the images - I did note a moderate amount of stool. I explained my physical exam findings as well as all test results to the patient. I answered all questions asked by the patient. Patient received IV fluids, anti-emetic medication, and an enema which he stated helped his symptoms significantly. I stressed the importance of the patient taking his medication as prescribed. I stressed the importance of the patient decreasing his protein supplement intake to 0 over at least 1 week as well as continuing to hydrate with electrolyte containing beverages such as gatorade and powerade. I stressed the importance of the patient following up with his primary care provider and a GI specialist. I stressed the importance of the patient returning to the e mergency department immediately if his symptoms were to worsen or if he were to develop any dizziness, shortness of breath, difficulty breathing, chest pain, blurry vision, loss of vision, nausea, vomiting, abdominal pain, fever, chills, back pain, or any other complaints. Patient verbalized agreement and understanding with this treatment plan and discharge. Differential Diagnosis Differential Diagnoses: The differential diagnosis associated with the presentation includes kidney stone, back pain, abdominal pain, constipation Admission/Observation Consideration of admission/observation: Escalation of care including admission/observation considered Patient would have been admitted to the hospital had his work up had any findings where hospital admission was appropriate. Lab Data MDM Lab Attestation statement: I reviewed the patient's lab results. My interpretation of these studies and their corresponding values is that they are grossly normal. 03/17/23 00:52 03/17/23 00:52 Labs: Lab Results 03/17/23 03/17/23 03/17/23 Range/Units 00:52 00:52 00:52 WBC 6.2 (4.8-10.8) X10*3/uL RBC 4.33 L (4.60-5.80) X10*6/uL Hgb 13.1 L (14.0-18.0) g/dl Hct 38.9 L (42.0-52.0) % MCV 89.8 (80.0-98.0) fL MCH 30.3 (27.0-33.0) pg MCHC 33.7 (31.0-36.0) g/dl RDW 12.9 (11.0-16.0) % Plt Count 267 (160-400) X10*3/uL MPV 10.2 (9.4-12.4) fL Immature Gran % (Auto) 0.2 (0.0-0.4) % Neut % (Auto) 62.1 (45-73) % Lymph % (Auto) 26.1 (20-40) % Fountain % (Auto) 6.6 (2-11) % Eos % (Auto) 4.2 H (0-4) % Baso % (Auto) 0.8 (0-2) % Lymph # (Auto) 1.6 (1.2-4.9) X10*3/uL Fountain # (Auto) 0.4 (0.1-1.2) X10*3/uL Eos # (Auto) 0.3 (0.0-0.4) X10*3/uL Baso # (Auto) 0.1 (0.0-0.2) X10*3/uL Abs Immat Gran (auto) 0.01 (0.00-0.03) X10*3/uL Absolute Neuts (auto) 3.9 (2.0-8.3) x10*3/uL Absolute Nucleated RBC 0.000 (0.0-0.012) X10*3/uL Nucleated RBC % (auto) 0.0 (0.0-0.2) /100WBC Sodium 144 (135-145) mmol/L Potassium 3.8 (3.3-5.1) mmol/L Chloride 109 H (96-108) mmol/L Carbon Dioxide 26 (22-29) mmol/L Anion Gap 13 (12-20) BUN 19 H (9-16) mg/dL Creatinine 1.16 (0.5-1.4) mg/dL Estim Creat Clear Calc 82.7 Estimated GFR > 60 Random Glucose 99 (60-115) mg/dL Calcium 9.1 (8.4-10.2) mg/dL Total Bilirubin 0.3 (0.0-1.0) mg/dL AST 18 (5-37) U/L ALT 19 (0-40) U/L Alkaline Phosphatase 48 (39-117) U/L Total Protein 6.9 (6.5-8.0) g/dL Albumin 4.2 (3.5-5.0) g/dL Urine Color Yellow Urine Appearance Clear Urine pH 6.5 (5.0-9.0) Ur Specific [place] 1.025 (1.005-1.025) Urine Protein Negative (Neg-Trace) mg/dL Urine Glucose (UA) Negative (Negative) mg/dL Urine Ketones Trace (Negative) mg/dL Urine Blood Negative (Negative) Urine Nitrite Negative (Negative) Ur Leukocyte Esterase Negative (Negative) Independent Interpretation I performed an independent interpretation of an: CT Scan Interpretation: My interpretation is in agreement with the radiologist's impression of this imaging study. EXAMINATION: CT ABDOMEN AND PELVIS WITHOUT CONTRAST? CLINICAL INFORMATION: Bilateral flank pain.? COMPARISON: CT scan of the abdomen and pelvis dated 11/10/2022. TECHNIQUE: Multidetector volumetric imaging was performed from the superior aspect of the liver through the pubic symphysis. Sagittal and coronal reformatted images were obtained on the technologist's workstation. Lack of intravenous and oral contrast limits visceral evaluation. This CT examination was performed using dose optimization techniques as appropriate, variously including the following: *Automated exposure control *Adjustment of mA and/or kV according to patient size (this includes techniques or standardized protocols for targeted exams where dose is matched to indication/reason for exam; i.e. extremities or head) *Use of iterative reconstruction technique DLP: 425 mGy-cm FINDINGS: LUNG BASES: The visualized lung bases are unremarkable.? LIVER, GALLBLADDER, AND BILIARY TREE: Unremarkable. PANCREAS: Unremarkable.? SPLEEN: Unremarkable.? ADRENAL GLANDS: Unremarkable.? KIDNEYS AND URETERS: Several punctate intrarenal calculi are seen bilaterally with mild increased medullary attenuation. Small high attenuation cyst in the upper pole of the right kidney is not significantly changed measuring 1.0 cm (image 42, series 5). No hydroureteronephrosis.? BLADDER: Unremarkable.? GASTROINTESTINAL TRACT: The stomach, small bowel and appendix are unremarkable. The colon shows mild diverticulosis distally in the sigmoid colon without surrounding abnormality. The rectum is unremarkable.? ABDOMINAL WALL: No significant hernia is appreciated.? LYMPH NODES: No lymphadenopathy. VASCULAR: Unremarkable. PELVIC VISCERA: Unremarkable.? OSSEOUS STRUCTURES: Unremarkable.? CT/CT abdomen pelvis wo IV con IMPRESSION: 1.? No acute abnormality explain the patient's pain. Nonobstructing intrarenal calculi bilaterally. No hydroureteronephrosis. 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 Small right upper pole renal cyst demonstrates benign features without significant change not requiring follow-up at this time. 2.? Mild sigmoid diverticulosis without evidence for acute diverticulitis. Dictated By: Jewel Swenson MD Signed By: Electronically signed by Jewel Swenson MD 03/17/23 1009 Discharge Plan Discharge Clinical Impression: Constipation Patient Disposition: Home, Self-Care Instructions: Constipation (DC) Additional Instructions: STOP your protein supplementation for at least 1 WEEK. Take the magnesium citrate as needed for your constipation. Make sure you drink plenty of electrolyte containing fluids (Gatorade, powerade). Follow up with your primary care provider and a GI specialist. Return to the emergency department immediately if your symptoms worsen or if you develop any dizziness, shortness of breath, difficulty breathing, chest pain, blurry vision, loss of vision, nausea, vomiting, abdominal pain, fever, chills, back pain, or any other complaints. Prescriptions: New magnesium citrate Solution 150 ml PO DAILY PRN (Reason: constipation) Qty: 296 0RF No Action hydromorphone [Dilaudid] 2 mg tablet 2 mg PO Q4-6H PRN (Reason: pain) Qty: 8 0RF Rx Instructions: Partial Fill upon patient request. ketorolac 10 mg tablet 10 mg PO Q6H PRN (Reason: pain) 5 Days Qty: 20 0RF ketorolac 10 mg tablet 10 mg PO TID PRN (Reason: pain) 5 Days Qty: 15 0RF diphenhydramine HCl [Benadryl] 25 mg capsule 25 mg PO TID PRN (Reason: allergic reaction) Qty: 20 0RF metoclopramide HCl [Reglan] 10 mg tablet 10 mg PO Q6H PRN (Reason: headache) Qty: 20 0RF cyclobenzaprine 10 mg tablet 10 mg PO TID PRN (Reason: muscle spasm) Qty: 14 0RF tamsulosin [Flomax] 0.4 mg capsule 0.4 mg PO BEDTIME Qty: 30 0RF tamsulosin [Flomax] 0.4 mg capsule 0.4 mg PO DAILY Qty: 14 0RF Referrals: [facility] [place] Gastroenterology Services [Provider Group] (Call to establish and follow up with a GI specialist for your constipation. ) [facility] [place]] (Call to establish and follow up with a primary care provider. If you already have a primary care provider, please follow up with them.) [facility] [place] [facility] [Provider Group] (Call to establish and follow up with a primary care provider. If you already have a primary care provider, please follow up with them.) [facility] [place] [facility] Group] (Call to establish and follow up with a primary care provider. If you already have a primary care provider, please follow up with them.) Stand Alone Forms: Work/School Release Print Language: Com[place]an
[2023-03-17] MEDS: Ketorolac Tromethamine 15 MG/ML VIAL IM (07:49)
[2023-03-17] MEDS: Ondansetron ODT 4 MG TAB.RAPDIS TRANSLINGU (07:49)
[2023-03-17] MEDS: 0.9 % Sodium Chloride 1,000 ML 999 ML IV (08:54)
[2023-03-17] MEDS: Sodium Phosphate,Mono-Dibasic 133 ML ENEMA PR (09:58)
== END 2023-03-17 11:51 | disposition home or self-care (01) ==
PROVIDERS: Emergency Provider Emergency Medicine Emergency Medical Services
DX: K59.00 Constipation, unspecified (principal); M54.50 Low back pain, unspecified
CPT/HCPCS: 36415; 74176; 80053; 81003; 85025; 96360; 96372; 99284; 99285; J1885

== ENCOUNTER 2023-09-02 07:35 | Emergency (ER) | payer OTHER, SELFPAY ==
--- NOTE | ~2023-09-02 | CT_ITS ---
EXAMINATION: CT ABDOMEN AND PELVIS WITH CONTRAST CLINICAL INFORMATION: Pelvic and abdominal pain and right lower quadrant pain COMPARISON: 03/17/2023 TECHNIQUE: Multidetector volumetric images were obtained from the superior aspect of the liver through the pubic symphysis following administration 85 mL of Omnipaque 350 intravenous contrast. Sagittal and coronal reformatted images were obtained on the technologist's workstation. Oral contrast: No This CT examination was performed using dose optimization techniques as appropriate, variously including the following: *Automated exposure control *Adjustment of mA and/or kV according to patient size (this includes techniques or standardized protocols for targeted exams where dose is matched to indication/reason for exam; i.e. extremities or head) *Use of iterative reconstruction technique DLP: 437 mGy-cm FINDINGS: LUNG BASES: The visualized lung bases are unremarkable. LIVER, GALLBLADDER, AND BILIARY TREE: The liver is normal in size, shape, and attenuation. No focal hepatic lesion or biliary ductal dilatation is present. The gallbladder is unremarkable with no evidence of radiopaque gallstones, gallbladder wall thickening, or obvious pericholecystic inflammatory changes. PANCREAS: Unremarkable. SPLEEN: Unremarkable. ADRENAL GLANDS: Unremarkable. KIDNEYS AND URETERS: The kidneys are normal in size, shape, and attenuation. No hydronephrosis, hydroureter, or calculi seen. No perinephric stranding. BLADDER: Unremarkable. GASTROINTESTINAL TRACT: Small hiatal hernia. Mild sigmoid diverticulosis. No bowel obstruction or right left lower quadrant inflammatory change. Appendix normal. ABDOMINAL WALL: Small fat-containing umbilical hernia. Bowel does not participate. LYMPH NODES: Normal. VASCULAR: Mild atherosclerotic calcification in the iliac bifurcation. PELVIC VISCERA: Unremarkable. OSSEOUS STRUCTURES: No acute findings. CT/CT abdomen pelvis w IV con IMPRESSION: No acute findings. No evidence for right lower quadrant inflammatory change is questioned.
[2023-09-02 07:41] VITALS: BP 122/78; BP 127/66; PULSE 90; PULSE 94; RESP 18; TEMP 36.7; O2SAT 96; O2SAT 97; BMI 26.1
--- NOTE | 2023-09-02 08:00 | PC.NURSE ---
Patient placed in [facility]. Admits to having Covid a couple of weeks ago . Since then has had LLQ pain (constant) that increases and decreases in intensity. Also c/o intermittent n/v/d. Amb to [facility] with steady gait. Resting quietly on stretcher. Waiting for provider evaluation.
[2023-09-02] MEDS: 0.9 % Sodium Chloride 1,000 ML 999 ML IV (10:15)
[2023-09-02 10:20] LABS: MANUAL DIFF FLAG NO
[2023-09-02 10:25] LABS: Appearance Urine Clear; Color Urine Yellow; Glucose Urine UA Negative (Negative); Leukocyte Esterase Urine Negative (Negative); Nitrite Urine Negative (Negative); Urine Blood Negative (Negative); Urine Ketones Negative (Negative); Urine Protein Negative (Neg-Trace)
[2023-09-02 10:29] LABS: Prothrombin Time 11.7 SEC (11.1-13.3)
[2023-09-02 10:31] LABS: Partial Thromboplastin Time 28.1 SEC (26.0-36.4)
[2023-09-02] MEDS: Ketorolac Tromethamine 30 MG/ML VIAL IVPUSH (10:33)
[2023-09-02 10:35] LABS: Basophils Percent Auto 0.2 % (0-2); Eosinophils Absolute Auto 0.2 X10*3/uL (0.0-0.4); Imm Gran Abs Auto 0.05 X10*3/uL (0.00-0.03); Imm Gran Pct Auto 0.3 % (0.0-0.4); Lymphocytes Absolute Auto 1.1 X10*3/uL (1.2-4.9); Lymphocytes Percent Auto 6.7 % (20-40); Mean Corpuscular HGB Conc 34.1 g/dl (31.0-36.0); Mean Corpuscular Hemoglobin 30.1 pg (27.0-33.0); Mean Corpuscular Volume 88.2 fL (80.0-98.0); Mean Platelet Volume 9.7 fL (9.4-12.4); Monocytes Absolute Auto 0.8 X10*3/uL (0.1-1.2); Neutrophils Absolute Auto 13.7 x10*3/uL (2.0-8.3); Neutrophils Percent Auto 86.8 % (45-73); Platelet Count 302 X10*3/uL (160-400); Red Blood Count 4.65 X10*6/uL (4.60-5.80); Red Cell Distribution Width 13.2 % (11.0-16.0); White Blood Count 15.8 X10*3/uL (4.8-10.8)
--- NOTE | 2023-09-02 10:36 | ED.GENADULT ---
HPI - General Adult General Chief complaint: Abdominal Pain Stated complaint: VOMITING,EXPOSED TO COVID PER EMS Time Seen by Provider: 09/02/23 09:51 Source: patient Mode of arrival: ambulatory Limitations: no limitations History of Present Illness HPI narrative: 38-year-old male with past medical history of kidney stones with positive COVID diagnosis 2 weeks ago presents to the ED for right lower quadrant abdominal pain and right lower back pain for the past 4 days. Patient denies any dysuria, hematuria, testicular pain, any recent trauma. Patient admits to nausea, vomiting, and diarrhea. Patient states no other complaints. Patient denies symptoms. Related Data Previous Rx's Medication Instructions Recorded tamsulosin 0.4 mg capsule (Flomax) 0.4 mg PO BEDTIME #30 caps 03/19/22 tamsulosin 0.4 mg capsule (Flomax) 0.4 mg PO DAILY #14 caps 03/27/22 hydromorphone 2 mg tablet 2 mg PO Q4-6H PRN pain #8 tabs 03/30/22 (Dilaudid) ketorolac 10 mg tablet 10 mg PO Q6H PRN pain 5 days #20 03/30/22 tabs cyclobenzaprine 10 mg tablet 10 mg PO TID PRN muscle spasm #14 12/23/22 tabs diphenhydramine HCl 25 mg capsule 25 mg PO TID PRN allergic reaction 12/23/22 (Benadryl) #20 caps ketorolac 10 mg tablet 10 mg PO TID PRN pain 5 days #15 12/23/22 tabs metoclopramide HCl 10 mg tablet 10 mg PO Q6H PRN headache #20 tabs 12/23/22 (Reglan) magnesium citrate 150 ml PO DAILY PRN constipation 03/17/23 #296 mL Allergies Allergy/AdvReac Type Severity Reaction Status Date / Time doxycycline Allergy Difficulty Verified 09/02/23 07:45 Breathing tramadol AdvReac Nausea Verified 09/02/23 07:45 Review of Systems Review of Systems: Right lower quadrant abdominal pain with right low back pain. Nausea vomiting diarrhea Yes all other systems are reviewed and are negative [facility] Past Medical History Medical History Subcutaneous mass Surgical History History of shoulder surgery Social History Alcohol intake: never Patient Tobacco Use Status: Never used Tobacco Advance Directives: No Advance Directives Information Provided: No Physical Exam ED Vital Signs: Vital Signs - 24 hr 09/02/23 07:41 09/02/23 12:07 Temperature 98.0 F 98.3 F Pulse Rate 90 73 Respiratory Rate 18 18 Blood Pressure 127/66 104/61 Pulse Oximetry 96 100 Oxygen Delivery Method Room Air Room Air BMI result Body Mass Index 26.1 Const General: cooperative, healthy appearing, comfortable, no acute distress, well developed, alert and awake Orientation/consciousness: oriented to person, oriented to place, oriented to time and patient oriented x3 HENMT Head: Yes normal to inspection, Yes No palpable skull fracture present, Yes normocephalic and Yes atraumatic Eyes General: appearance normal, both eyes and all related structures Neck Neck: Yes normal visual inspection, Yes full ROM, Yes no lymphadenopathy, Yes no meningeal signs, Yes trachea midline, Yes supple, No anterior neck swelling and No tender Chest Chest palpation & inspection: normal inspection of the chest and normal palpation of entire chest wall Resp Effort & Inspection: normal respiratory effort and able to speak in complete sentences Auscultation: clear to auscultation bilaterally Cardio Jugular venous distension: no JVD Heart sounds: S1 normal heart sound present and S2 normal heart sound present GI Inspection: Yes normal to inspection Palpation (GI): Soft to palpation, not firm, Tenderness to palpation present (GI) in the RLQ, no guarding and not rigid General: No CVA tenderness and Yes no CVA tenderness Back/Spine/Pelvis Back: no CVA tenderness, No CVA tenderness and No back tenderness Skin General skin exam: no rashes or lesions noted, elasticity normal and turgor normal Neuro General: oriented to person, oriented to place, oriented to time, patient oriented x3, gait normal, tone normal, moves all extremities, Normal light touch and pain sensation, no meningeal signs, no focal motor deficits, CN's II-XI intact bilaterally and normal sensation to monofilament Extrem General: Yes normal to inspection, Yes full ROM and Yes capillary refill normal Psych Appearance: grossly normal, well kempt and not disheveled Medications Administered Discontinued Medications Generic Name Dose Route Start Last Admin Trade Name Freq PRN Reason Stop Dose Admin Sodium Chloride 1,000 mls @ 999 mls/hr 09/02/23 09:57 09/02/23 11:18 Ns IV 09/02/23 10:57 Infused .Q1H1M STA Infusion Iohexol 85 ml 09/02/23 11:20 09/02/23 11:20 Iohexol 350 Mg/Ml 100 Ml Infus..Btl IV 09/02/23 11:21 85 ml ONCE ONE Administration Ketorolac Tromethamine 30 mg 09/02/23 10:20 09/02/23 10:33 Ketorolac Tromethamine 30 Mg/Ml Vial IVPUSH 09/02/23 10:21 30 mg ONCE ONE Administration Medical Decision Making Medical Decision Making [facility] Narrative: 38-year-old man presents to ED for right lower quadrant abdominal pain and back pain. Patient history of kidney stones. Patient recently tested positive for COVID 2 weeks ago. Patient denies any chest pain, shortness of breath or coughing. Patient states also with right lower quadrant abdominal pain nausea, vomiting, and diarrhea, labs ordered. Fluid Toradol. Most likely imaging ordered. 1:00pm: Labs normal. Abdominal CT scan normal. patient most likely having viral syndrome from being tested from COVID 2 weeks ago. Although patient states past couple days tested negative for COVID. Patient educated on oral hydration. Patient not in distress Differential Diagnosis Differential Diagnoses: The differential diagnosis associated with the presentation includes ( appendicitis, UTI, kidney stones, viral syndrome COVID,) Admission/Observation Consideration of admission/observation: Escalation of care including admission/observation considered Lab Data 09/02/23 10:13 09/02/23 10:13 Labs: Lab Results 09/02/23 Range/Units 10:13 WBC 15.8 H (4.8-10.8) X10*3/uL RBC 4.65 (4.60-5.80) X10*6/uL Hgb 14.0 (14.0-18.0) g/dl Hct 41.0 L (42.0-52.0) % MCV 88.2 (80.0-98.0) fL MCH 30.1 (27.0-33.0) pg MCHC 34.1 (31.0-36.0) g/dl RDW 13.2 (11.0-16.0) % Plt Count 302 (160-400) X10*3/uL MPV 9.7 (9.4-12.4) fL Immature Gran % (Auto) 0.3 (0.0-0.4) % Neut % (Auto) 86.8 H (45-73) % Lymph % (Auto) 6.7 L (20-40) % [place] % (Auto) 5.0 (2-11) % Eos % (Auto) 1.0 (0-4) % Baso % (Auto) 0.2 (0-2) % Lymph # (Auto) 1.1 L (1.2-4.9) X10*3/uL [place] # (Auto) 0.8 (0.1-1.2) X10*3/uL Eos # (Auto) 0.2 (0.0-0.4) X10*3/uL Baso # (Auto) 0.0 (0.0-0.2) X10*3/uL Abs Immat Gran (auto) 0.05 H (0.00-0.03) X10*3/uL Absolute Neuts (auto) 13.7 H (2.0-8.3) x10*3/uL Absolute Nucleated RBC 0.000 (0.0-0.012) X10*3/uL Nucleated RBC % (auto) 0.0 (0.0-0.2) /100WBC PT 11.7 (11.1-13.3) SEC INR 1.0 (0.9-1.1) APTT 28.1 (26.0-36.4) SEC Sodium 142 (135-145) mmol/L Potassium 4.5 (3.3-5.1) mmol/L Chloride 108 (96-108) mmol/L Carbon Dioxide 28 (22-29) mmol/L Anion Gap 11 L (12-20) BUN 17 H (9-16) mg/dL Creatinine 1.16 (0.5-1.4) mg/dL Estim Creat Clear Calc 81.8 Estimated GFR > 60 Random Glucose 106 (60-115) mg/dL Calcium 8.9 (8.4-10.2) mg/dL Total Bilirubin 0.5 (0.0-1.0) mg/dL AST 22 (5-37) U/L ALT 25 (0-40) U/L Alkaline Phosphatase 51 (39-117) U/L Total Protein 7.3 (6.5-8.0) g/dL Albumin 4.3 (3.5-5.0) g/dL Lipase 43 (8-78) U/L Urine Color Yellow Urine Appearance Clear Urine pH 7.0 (5.0-9.0) Ur Specific [place] 1.020 (1.005-1.025) Urine Protein Negative (Neg-Trace) mg/dL Urine Glucose (UA) Negative (Negative) mg/dL Urine Ketones Negative (Negative) mg/dL Urine Blood Negative (Negative) Urine Nitrite Negative (Negative) Ur Leukocyte Esterase Negative (Negative) Independent Interpretation I performed an independent interpretation of an: CT Scan Radiology Impression Discussion of test interpretation with radiology: I have reviewed the radiologist's reading. External Record Review External record reviewed: Other (Prior ED visits) Discharge Plan Discharge Clinical Impression: Gastroenteritis, Acute viral syndrome Patient Disposition: Home, Self-Care Instructions: Gastroenteritis (ED), Viral Syndrome (ED) Additional Instructions: your abdominal CT scan came back negative for any medical/surgical etiology/ emergency. Elevated white blood cell count most likely from vomiting and diarrhea. The electrolytes are normal. Recommend oral hydration with water, Powerade, Gatorade, and rest. Recommend brat diet which consist of banana, rice, apple, and toast. return to the ED immediately for worsening abdominal pain, dysuria, hematuria, flank pain, fever, chills worsening abdominal pain, nausea, vomiting, testicular pain, or any other concerning symptoms. Prescriptions: No Action hydromorphone [Dilaudid] 2 mg tablet 2 mg PO Q4-6H PRN (Reason: pain) Qty: 8 0RF Rx Instructions: Partial Fill upon patient request. ketorolac 10 mg tablet 10 mg PO Q6H PRN (Reason: pain) 5 Days Qty: 20 0RF ketorolac 10 mg tablet 10 mg PO TID PRN (Reason: pain) 5 Days Qty: 15 0RF diphenhydramine HCl [Benadryl] 25 mg capsule 25 mg PO TID PRN (Reason: allergic reaction) Qty: 20 0RF metoclopramide HCl [Reglan] 10 mg tablet 10 mg PO Q6H PRN (Reason: headache) Qty: 20 0RF cyclobenzaprine 10 mg tablet 10 mg PO TID PRN (Reason: muscle spasm) Qty: 14 0RF tamsulosin [Flomax] 0.4 mg capsule 0.4 mg PO BEDTIME Qty: 30 0RF tamsulosin [Flomax] 0.4 mg capsule 0.4 mg PO DAILY Qty: 14 0RF magnesium citrate Solution 150 ml PO DAILY PRN (Reason: constipation) Qty: 296 0RF Interventions: ED Discharge Assessment Last Done: 09/02/23 13:09 Discharge Date/Time: 09/02/23 13:09 Print Language: Japanese
[2023-09-02 10:37] LABS: Alanine Aminotransferase 25 U/L (0-40); Albumin Level 4.3 g/dL (3.5-5.0); Alkaline Phosphatase 51 U/L (39-117); Anion Gap 11 (12-20); Aspartate Amino Transferase 22 U/L (5-37); Bilirubin Total 0.5 mg/dL (0.0-1.0); Blood Urea Nitrogen 17 mg/dL (9-16); Calcium 8.9 mg/dL (8.4-10.2); Carbon Dioxide 28 mmol/L (22-29); Chloride 108 mmol/L (96-108); Creatinine Clr Calc Pharmacy 81.8; Estimated Glomerular Filt Rate > 60; Glucose Random 106 mg/dL (60-115); Lipase 43 U/L (8-78); Potassium 4.5 mmol/L (3.3-5.1); Sodium 142 mmol/L (135-145); Total Protein 7.3 g/dL (6.5-8.0)
[2023-09-02] MEDS: iohexoL 350 MG/ML 100 ML INFUS..BTL 85 ML IV (11:20)
[2023-09-02 12:07] VITALS: BP 104/61; PULSE 73; RESP 18; TEMP 36.8; O2SAT 100
== END 2023-09-02 13:09 | disposition home or self-care (01) ==
PROVIDERS: Physician Assistant; Emergency Provider Emergency Medicine
DX: K52.9 Noninfective gastroenteritis and colitis, unspecified (principal); B34.9 Viral infection, unspecified; R10.31 Right lower quadrant pain; M54.50 Low back pain, unspecified; R11.2 Nausea with vomiting, unspecified; Z87.442 Personal history of urinary calculi; Z79.899 Other long term (current) drug therapy
CPT/HCPCS: 36415; 74177; 80053; 81003; 83690; 85025; 85610; 85730; 96361; 96374; 99283; 99284; J1885; Q9967

== ENCOUNTER 2023-09-28 10:27 | Outpatient (AMB) | payer OTHER, SELFPAY ==
[2023-09-28 12:23] VITALS: BP 130/80; PULSE 88; TEMP 36.6; O2SAT 98; BMI 26.1
--- NOTE | 2023-09-28 12:23 | MHC.OFFWIV ---
Intake Vital Signs 09/28/23 12:23 Height 5 ft 8 in Weight 172 lb BMI 26.1 BP 130/80 Blood Pressure Location Lt brachial Position Sitting Pulse 88 Pulse Source Pulse Oximeter Temp 97.9 F Temp Source Temporal Artery Scan Pulse Oximetry (%) 98 Oxygen Delivery Method Room Air Intake Visit Reasons: EST/cough/wheezing ([phone]) Intake Note: pt is here today for cough,wheezing started 1 week ago Patient Tobacco Use Status: Never used Tobacco Allergies doxycycline Allergy (Verified 09/28/23 12:24) Difficulty Breathing tramadol Adverse Reaction (Verified 09/28/23 12:24) Nausea Do you need a note to return to daycare/school/sports/work: No HPI HPI Comments History of Present Illness Details Michael presents to the walk-in today for sick visit. Reports cough for last 1 week with fatigue and bodyaches. States 1 month ago he tested positive for Covid, took a couple weeks to recover and was feeling better for about 2 weeks when he developed a cough again. He endorses worsening shortness of breath with exertion, has noticed wheezing and cough is now productive. He has albuterol inhaler at home, no change in his symptoms with use of his inhaler. Tolerating po fluids. Reports cough at night impacting sleep. [facility] Medical History Subcutaneous mass Surgical History History of shoulder surgery Social History Alcohol intake: never Patient Tobacco Use Status: Never used Tobacco Review of Systems Const All systems reviewed & are unremarkable except as noted in HPI and below Physical Exam General: awake, alert, oriented. Answers questions appropriately. Fully engaged in examination. Skin: warm, dry, intact HEENT: TMs intact bilaterally, no redness. Posterior pharynx without erythema or exudate. Sclera without icterus or injection. Oral mucosa dry. Cardiac: External chest normal in appearance. Respiratory: +cough. LS diminished at bases. ambulated to xray without difficulty, o2 sat 96% RA with ambulation Abdomen: without gross distension. Neurological: Oriented to person, place, time and situation. Thought process intact. Psychiatric: Appropriate mood and affect. Good judgment and insight. Results AMB Rapid Strep AMB Rapid Strep Negative Last Edit by Kenyon Weir CMA on 09/28/23 12:45 Results Reviewed Results Reviewed: XR chest 2 views: personally reviewed, no infiltrate. Assessment & Plan Assessment & Plan (1) Cough: Code(s): R05.9 - Cough, unspecified (2) URI (upper respiratory infection): Code(s): J06.9 - Acute upper respiratory infection, unspecified Plan URI, no abx warranted. Rapid strep negative CXR ordered, reviewed with Dr Jefferson, no infiltrate visualized. Prednisone 50mg po daily X 5days Benzonatate 100mg po bid as needed Albuterol MDI as needed Follow up with pcp or in clinic for any new or worsening symptoms. Go to ER for shortness of breath not resolved with MDI, if using MDI more than prescribed, chest pain, palpitations, weakness, dizziness. Orders: Orders XR chest 2V Today R05.9 - Cough, unspecified AMB Rapid Strep Screen Today Z13.9 - Encounter for screening, unspecified Medications: New albuterol sulfate 90 mcg/actuation 2 puffs inhalation Q6H PRN 6.7 grams 0RF shortness of breath or wheezing benzonatate 100 mg PO BID PRN 20 caps 0RF cough prednisone 50 mg PO DAILY 5 tabs 0RF Coding Level of Care Code Est Pt Level 4 (40492) Diagnoses Cough R05.9 URI (upper respiratory infection) J06.9
== END 2023-09-28 13:40 | disposition home or self-care (01) ==
PROVIDERS: Visit Provider Registered Nurse Emergency
DX: R05.9 Cough, unspecified (principal); J06.9 Acute upper respiratory infection, unspecified; R06.2 Wheezing; Z86.16 Personal history of COVID-19
CPT/HCPCS: 87880; 99214

== ENCOUNTER 2023-09-28 12:51 | Outpatient (REF) | payer OTHER, SELFPAY ==
--- NOTE | ~2023-09-28 | XR_ITS ---
EXAMINATION: XR CHEST CLINICAL INFORMATION: Cough. COMPARISON: None available. TECHNIQUE: 2 views of the chest were obtained. FINDINGS: No significant abnormality is noted involving the heart, lungs, mediastinum, bony thorax or soft tissues. XR/XR chest 2V IMPRESSION: Unremarkable examination.
== END 2023-09-28 12:52 | disposition home or self-care (01) ==
LOC: HO.HMGCX 12:51
PROVIDERS: Visit Provider Registered Nurse Emergency
DX: R05.9 Cough, unspecified (principal)
CPT/HCPCS: 71046

== ENCOUNTER 2023-10-10 19:01 | Emergency (ER) | payer OTHER, SELFPAY ==
--- NOTE | ~2023-10-10 | CT_ITS ---
EXAMINATION: CT ABDOMEN AND PELVIS WITH CONTRAST CLINICAL INFORMATION: Right lower quadrant/right flank pain. COMPARISON: Multiple priors, most recent CT abdomen/pelvis dated 09/02/2023. TECHNIQUE: Multidetector volumetric images were obtained from the superior aspect of the liver through the pubic symphysis following administration 85 mL of Omnipaque 350 intravenous contrast. Sagittal and coronal reformatted images were obtained on the technologist's workstation. Oral contrast: No. This CT examination was performed using dose optimization techniques as appropriate, variously including the following: *Automated exposure control *Adjustment of mA and/or kV according to patient size (this includes techniques or standardized protocols for targeted exams where dose is matched to indication/reason for exam; i.e. extremities or head) *Use of iterative reconstruction technique DLP: 511 mGy-cm FINDINGS: LUNG BASES: The visualized lung bases are unremarkable. LIVER, GALLBLADDER, AND BILIARY TREE: The liver is normal in size, shape, and attenuation. No focal hepatic lesion or biliary ductal dilatation is present. The gallbladder is unremarkable with no evidence of radiopaque gallstones, gallbladder wall thickening, or obvious pericholecystic inflammatory changes. PANCREAS: Unremarkable. SPLEEN: Unremarkable. ADRENAL GLANDS: Unremarkable. KIDNEYS AND URETERS: The kidneys are normal in size, shape, and attenuation. No hydronephrosis, hydroureter, or calculi seen. No perinephric stranding. BLADDER: Unremarkable. No associated calcification. GASTROINTESTINAL TRACT: The small and large bowel are unremarkable. No bowel wall thickening or inflammatory change. The appendix is unremarkable. PERITONEAL CAVITY: No intra-abdominal free air or free fluid. No intra-abdominal mass or organized fluid collection/abscess formation. ABDOMINAL WALL: No significant hernia is appreciated. LYMPH NODES: No significant lymphadenopathy. VASCULAR: Unremarkable. PELVIC VISCERA: The prostate and seminal vesicles are unremarkable. OSSEOUS STRUCTURES: Chronic pars defects at L5-S1 with minimal grade 1 anterolisthesis. No acute osseous injury. CT/CT abdomen pelvis w IV con IMPRESSION: 1. No renal or ureteral stone. No hydronephrosis or hydroureter. Unremarkable urinary bladder without associated calcification. 2. No bowel wall thickening or inflammatory change. No small or large bowel obstruction. Unremarkable appendix. 3. No intra-abdominal mass, lymphadenopathy or ascites. 4. Chronic pars defects at L5-S1 with minimal grade 1 anterolisthesis. No acute osseous injury. Fleischner guidelines were followed.
[2023-10-10 19:46] VITALS: BP 131/89; PULSE 76; RESP 18; TEMP 36.9; O2SAT 100; BMI 26.1
[2023-10-10 20:06] LABS: MANUAL DIFF FLAG NO
[2023-10-10 20:08] LABS: Basophils Percent Auto 0.4 % (0-2); Eosinophils Absolute Auto 0.2 X10*3/uL (0.0-0.4); Hematocrit 40.5 % (42.0-52.0); Hemoglobin 13.6 g/dl (14.0-18.0); Imm Gran Abs Auto 0.03 X10*3/uL (0.00-0.03); Imm Gran Pct Auto 0.3 % (0.0-0.4); Lymphocytes Absolute Auto 1.6 X10*3/uL (1.2-4.9); Lymphocytes Percent Auto 17.2 % (20-40); Mean Corpuscular HGB Conc 33.6 g/dl (31.0-36.0); Mean Corpuscular Hemoglobin 29.4 pg (27.0-33.0); Mean Corpuscular Volume 87.5 fL (80.0-98.0); Mean Platelet Volume 9.6 fL (9.4-12.4); Monocytes Absolute Auto 0.4 X10*3/uL (0.1-1.2); Monocytes Percent Auto 4.7 % (2-11); Neutrophils Absolute Auto 6.9 x10*3/uL (2.0-8.3); Neutrophils Percent Auto 75.4 % (45-73); Platelet Count 317 X10*3/uL (160-400); Red Blood Count 4.63 X10*6/uL (4.60-5.80); Red Cell Distribution Width 13.2 % (11.0-16.0); White Blood Count 9.2 X10*3/uL (4.8-10.8)
[2023-10-10 20:09] LABS: Appearance Urine Clear; Color Urine Yellow; Glucose Urine UA Negative (Negative); Leukocyte Esterase Urine Trace (Negative); Nitrite Urine Negative (Negative); Specific Gravity - Urine >= 1.030 (1.005-1.025); UMIC TRIGGER UACC YES; Urine Blood Negative (Negative); Urine Ketones Negative (Negative); Urine Protein Negative (Neg-Trace)
[2023-10-10 20:14] LABS: Bacteria Urine None Seen (None Seen); Hyaline Casts Urine 0-2 /LPF (0-2); RBC Urine 0-2 /HPF (0-2); Squamous Epithelial Cell Urine 0-2 /HPF (0-2); UACC Culture Trigger YES
[2023-10-10 20:22] LABS: Alanine Aminotransferase 33 U/L (0-40); Albumin Level 4.6 g/dL (3.5-5.0); Alkaline Phosphatase 49 U/L (39-117); Anion Gap 14 (12-20); Aspartate Amino Transferase 24 U/L (5-37); Bilirubin Total 0.6 mg/dL (0.0-1.0); Blood Urea Nitrogen 18 mg/dL (9-16); COVID-19 Test Negative (Negative); Carbon Dioxide 26 mmol/L (22-29); Chloride 107 mmol/L (96-108); Creatinine Clr Calc Pharmacy 89.6; Estimated Glomerular Filt Rate > 60; Glucose Random 101 mg/dL (60-115); IDNOW Serial# 08D9AD1C; IDNOW Serial# BCCEAD1C; Influenza A Negative (Negative); Influenza B2 Negative (Negative); Lipase 58 U/L (8-78); Sodium 143 mmol/L (135-145); Total Protein 7.6 g/dL (6.5-8.0)
[2023-10-11 05:04] VITALS: BP 120/77; PULSE 76; RESP 20; TEMP 36.6; O2SAT 98
--- NOTE | 2023-10-11 07:50 | ED.ABDPAIN ---
HPI - Abdominal Pain General Chief Complaint: Urogenital-Male Stated Complaint: Flank pain, abd pressure Time Seen by Provider: 10/11/23 07:48 Source: patient Mode of arrival: ambulatory Limitations: no limitations History of Present Illness HPI narrative: 38 yo male with PMH of prior back pain, kidney stones here with c/o 1 week of abdominal issues. He has felt weak, dizzy and nauseated. He initially had R flank radiating to the R groin now has L flank down to L groin. He has not had a fever, diarrhea. But overall feels unwell. MD elicited complaint: abdominal pain and flank pain Pertinent past history: kidney stones Onset (ago): week(s) (1) Pain Consistency: constant Location: L flank and R flank Severity: moderate Quality: aching Radiation: none Migration to: no migration Exacerbating factors: movement Relieving factors: nothing Context: history of similar episodes Associated symptoms: nausea, dysuria and other (dizziness) Treatments prior to arrival: NSAIDs (no relief) Related Data Previous Rx's Medication Instructions Recorded albuterol sulfate 90 mcg/actuation 2 puff inhalation Q6H PRN 09/28/23 aerosol inhaler shortness of breath or wheezing #6.7 grams benzonatate 100 mg capsule 100 mg PO BID PRN cough #20 caps 09/28/23 prednisone 50 mg tablet 50 mg PO DAILY #5 tabs 09/28/23 cyclobenzaprine 10 mg tablet 10 mg PO TID PRN muscle spasm #20 10/11/23 tabs ibuprofen 600 mg tablet 600 mg PO Q6H PRN pain #30 tabs 10/11/23 lidocaine 5 % topical patch 1 patch topical DAILY #30 ea 10/11/23 Allergies Allergy/AdvReac Type Severity Reaction Status Date / Time doxycycline Allergy Difficulty Verified 10/10/23 19:46 Breathing tramadol AdvReac Nausea Verified 10/10/23 19:46 Review of Systems Review of Systems Constitutional : No Weight loss, No Fever, No Chills ENT/Mouth : No sore throat, No Rhinorrhea Eyes: No Swelling, No Redness Cardiovascular : No Chest Pain, No SOB, NoEdema Respiratory : No Cough, No Sputum, No Wheezing Gastrointestinal : Positive Nausea, no Vomiting, no Diarrhea, positive abdominal Pain, No Hematochezia, No Melena Genitourinary : pos Dysuria, No Urinary Frequency, No Hematuria, No Urgency Musculoskeletal : No joint pain, No Myalgias, No Joint Swelling, pos back pain Skin : No Skin Lesions, No rash Neuro : No Weakness, No Numbness, pos Dizziness, No Headache Psych : No Anxiety/Panic, No Depression Heme/Lymph: No Bruising, No Lymphadenopathy Endocrine : No Polyuria, No Polydipsia All other systems reviewed and are negative. [facility] Past Medical History Attestation statement: The following information was validated with the patient. Medical History Subcutaneous mass Surgical History History of shoulder surgery Social History Social History Alcohol intake: never Patient Tobacco Use Status: Never used Tobacco Smoked in Last 30 Days: No Use of substances other than those prescribed or required for medical reasons: No Advance Directives: No Physical Exam ED Vital Signs: Vital Signs - 24 hr 10/10/23 19:46 10/11/23 05:04 10/11/23 08:30 Temperature 98.4 F 97.9 F Pulse Rate 76 76 75 Respiratory Rate 18 20 16 Blood Pressure 131/89 120/77 119/76 Pulse Oximetry 100 98 100 Oxygen Delivery Method Room Air Room Air Room Air BMI result Body Mass Index 26.1 Appearance: Alert. Oriented X3. No acute distress. Eyes: Pupils equal, round and reactive to light. ENT: Pharynx normal. Neck: Normal inspection. Neck supple. CVS: Normal heart rate and rhythm. Pulses normal. Respiratory: No respiratory distress. Breath sounds normal. Abdomen: Soft and ttp in lower abdomen on rebound Skin: Skin warm and dry. Normal skin color. Normal skin turgor. Extremities: No lower extremity edema. No calf ttp Neuro: Oriented X 3. No motor deficit. No sensory deficit. Course Course Course Narrative: steady normal gait to and from CT scan Medical Decision Making Medical Decision Making MDM Narrative: 38 yo male with PMH of renal colic and frequent visits for abdominal pain here with c/o R flank L flank abdominal pain nausea dizziness and not feeling well. He is NV intact, walked in no distress. He will need labs, UA, CT scan given lower abdominal pain. Has presented similar in past with same complaint. Possible IBS, renal colic, appendicitis, viral syndrome, MSK pain. Patient is sitting in no distress with legs crossed. Differential Diagnosis Differential Diagnoses: The differential diagnosis associated with the presentation includes IBS, renal colic, appendicitis, viral syndrome, MSK pain Admission/Observation Consideration of admission/observation: Escalation of care including admission/observation considered labs and CT scan reassuring with normal gait and normal VS, NV intact, crossing legs on exam appears not toxic Lab Data MDM Lab Attestation statement: I reviewed the patient's lab results. 10/10/23 20:01 10/10/23 20:01 Labs: Lab Results 10/10/23 Range/Units 20:01 WBC 9.2 (4.8-10.8) X10*3/uL RBC 4.63 (4.60-5.80) X10*6/uL Hgb 13.6 L (14.0-18.0) g/dl Hct 40.5 L (42.0-52.0) % MCV 87.5 (80.0-98.0) fL MCH 29.4 (27.0-33.0) pg MCHC 33.6 (31.0-36.0) g/dl RDW 13.2 (11.0-16.0) % Plt Count 317 (160-400) X10*3/uL MPV 9.6 (9.4-12.4) fL Immature Gran % (Auto) 0.3 (0.0-0.4) % Neut % (Auto) 75.4 H (45-73) % Lymph % (Auto) 17.2 L (20-40) % [place] % (Auto) 4.7 (2-11) % Eos % (Auto) 2.0 (0-4) % Baso % (Auto) 0.4 (0-2) % Lymph # (Auto) 1.6 (1.2-4.9) X10*3/uL [place] # (Auto) 0.4 (0.1-1.2) X10*3/uL Eos # (Auto) 0.2 (0.0-0.4) X10*3/uL Baso # (Auto) 0.0 (0.0-0.2) X10*3/uL Abs Immat Gran (auto) 0.03 (0.00-0.03) X10*3/uL Absolute Neuts (auto) 6.9 (2.0-8.3) x10*3/uL Absolute Nucleated RBC 0.000 (0.0-0.012) X10*3/uL Nucleated RBC % (auto) 0.0 (0.0-0.2) /100WBC Sodium 143 (135-145) mmol/L Potassium 4.0 (3.3-5.1) mmol/L Chloride 107 (96-108) mmol/L Carbon Dioxide 26 (22-29) mmol/L Anion Gap 14 (12-20) BUN 18 H (9-16) mg/dL Creatinine 1.06 (0.5-1.4) mg/dL Estim Creat Clear Calc 89.6 Estimated GFR > 60 Random Glucose 101 (60-115) mg/dL Calcium 9.0 (8.4-10.2) mg/dL Total Bilirubin 0.6 (0.0-1.0) mg/dL AST 24 (5-37) U/L ALT 33 (0-40) U/L Alkaline Phosphatase 49 (39-117) U/L Total Protein 7.6 (6.5-8.0) g/dL Albumin 4.6 (3.5-5.0) g/dL Lipase 58 (8-78) U/L Urine Color Yellow Urine Appearance Clear Urine pH 6.0 (5.0-9.0) Ur Specific [place] >= 1.030 H (1.005-1.025) Urine Protein Negative (Neg-Trace) mg/dL Urine Glucose (UA) Negative (Negative) mg/dL Urine Ketones Negative (Negative) mg/dL Urine Blood Negative (Negative) Urine Nitrite Negative (Negative) Ur Leukocyte Esterase Trace H (Negative) Urine RBC 0-2 (0-2) /HPF Urine WBC 6-10 H (0-5) /HPF Ur Squamous Epith Cells 0-2 (0-2) /HPF Urine Bacteria None Seen (None Seen) Hyaline Casts 0-2 (0-2) /LPF COVID-19 (KATELIN) Negative (Negative) COVID-19 Clin Com See Note Influenza Type A (VAMSI) Negative (Negative) Influenza Type B (VAMSI) Negative (Negative) Influenza A & B Note See Note Independent Interpretation I performed an independent interpretation of an: CT Scan (no acute findings) Radiology Impression Discussion of test interpretation with radiology: I have reviewed the radiologist's reading. External Record Review External record reviewed: Inpatient record Prescription Management I considered prescription management with: Other Medications Administered Discontinued Medications Generic Name Dose Route Start Last Admin Trade Name Freq PRN Reason Stop Dose Admin Sodium Chloride 1,000 mls @ 999 mls/hr 10/11/23 08:00 10/11/23 08:33 Ns IV 10/11/23 09:00 999 mls/hr .Q1H1M CALOS Administration Iohexol 85 ml 10/11/23 08:46 10/11/23 08:46 Iohexol 350 Mg/Ml 100 Ml Infus..Btl IV 10/11/23 08:47 85 ml ONCE ONE Administration Ketorolac Tromethamine 15 mg 10/11/23 07:54 10/11/23 08:34 Ketorolac Tromethamine 15 Mg/Ml Vial IVPUSH 10/11/23 07:55 15 mg ONCE ONE Administration Ondansetron HCl 4 mg 10/11/23 07:54 10/11/23 08:34 Ondansetron Hcl 4 Mg/2 Ml Vial IVPUSH 10/11/23 07:55 4 mg ONCE ONE Administration Discharge Plan Discharge Clinical Impression: Acute right flank pain Patient Disposition: Home, Self-Care Instructions: Flank Pain (ED) Additional Instructions: your labs, urine and CT scan do not show an acute cause for your pain such as infection. please follow up with your primary care doctor. your flu and covid are negative. return for worsening symptoms, fevers or any other concerns. 1. No renal or ureteral stone. No hydronephrosis or hydroureter. Unremarkable urinary bladder without associated calcification. 2. No bowel wall thickening or inflammatory change. No small or large bowel obstruction. Unremarkable appendix. 3. No intra-abdominal mass, lymphadenopathy or ascites. 4. Chronic pars defects at L5-S1 with minimal grade 1 anterolisthesis. No acute osseous injury. Prescriptions: New cyclobenzaprine 10 mg tablet 10 mg PO TID PRN (Reason: muscle spasm) Qty: 20 0RF lidocaine 5 % adhesive patch,medicated 1 patch topical DAILY Qty: 30 0RF Rx Instructions: leave on most painful area for up to 12 hrs ibuprofen 600 mg tablet 600 mg PO Q6H PRN (Reason: pain) Qty: 30 0RF No Action benzonatate 100 mg capsule 100 mg PO BID PRN (Reason: cough) Qty: 20 0RF prednisone 50 mg tablet 50 mg PO DAILY Qty: 5 0RF albuterol sulfate 90 mcg/actuation HFA aerosol inhaler 2 puff inhalation Q6H PRN (Reason: shortness of breath or wheezing) Qty: 6.7 0RF Stand Alone Forms: Work/School Release
[2023-10-11 08:30] VITALS: BP 119/76; PULSE 75; RESP 16; O2SAT 100
[2023-10-11] MEDS: 0.9 % Sodium Chloride 1,000 ML 999 ML IV (08:33)
[2023-10-11] MEDS: ondansetron HCL 4 MG/2 ML VIAL IVPUSH (08:34)
[2023-10-11] MEDS: Ketorolac Tromethamine 15 MG/ML VIAL IVPUSH (08:34)
--- NOTE | 2023-10-11 08:36 | PC.NURSE ---
Pt reports one week of nausea, b/l flank pain intermittently, dysuria with starting stream, one episode of urinary incontinence. Denies hematuria. Denies groin pain. Pt reports dizziness as well. Skin pwd. VSS. IV estblsihed, and medicated as charted, out of room for CT scan at this time
[2023-10-11] MEDS: iohexoL 350 MG/ML 100 ML INFUS..BTL 85 ML IV (08:46)
[2023-10-11 10:22] VITALS: BP 123/75; PULSE 66; RESP 16
[2023-10-11] MEDS: Cyclobenzaprine HCl 10 MG TABLET PO (10:22)
== END 2023-10-11 10:41 | disposition home or self-care (01) ==
PROVIDERS: Emergency Provider Emergency Medicine
DX: R10.9 Unspecified abdominal pain (principal); Z11.52 Encounter for screening for COVID-19
CPT/HCPCS: 74177; 80053; 81001; 83690; 85025; 87086; 87502; 87635; 96361; 96374; 96375; 99284; J1885; J2405; Q9967

== ENCOUNTER 2023-11-23 09:57 | Outpatient (AMB) | payer OTHER, SELFPAY ==
[2023-11-23 10:30] VITALS: BP 140/90; PULSE 95; TEMP 37; O2SAT 96; BMI 27.1
--- NOTE | 2023-11-23 10:30 | MHC.OFFWIV ---
Intake Vital Signs 11/23/23 10:30 Height 5 ft 8 in Weight 178 lb BMI 27.1 BP 140/90 H Blood Pressure Location Lt brachial Position Sitting Pulse 95 Pulse Source Pulse Oximeter Temp 98.6 F Temp Source Temporal Artery Scan Pulse Oximetry (%) 96 Oxygen Delivery Method Room Air Intake Visit Reasons: EP SEVERE abdominal pain vomiting [id number] Intake Note: pt is here today for severe abd pain vomiting started yesterday Patient Tobacco Use Status: Never used Tobacco Allergies doxycycline Allergy (Verified 11/23/23 10:32) Difficulty Breathing tramadol Adverse Reaction (Verified 11/23/23 10:32) Nausea Medication List - Last Reconciled 11/23/23 by Eladio Jefferson MD albuterol sulfate 90 mcg/actuation 2 puffs inhalation Q6H PRN benzonatate 100 mg PO BID PRN cyclobenzaprine 10 mg PO TID PRN lidocaine 5% 1 patch topical DAILY omeprazole 40 mg PO DAILY venlafaxine ER 37.5 mg PO DAILY Do you need a note to return to daycare/school/sports/work: No HPI EP SEVERE abdominal pain vomiting [id number] HPI Details 38-year-old male presents to the office for a sick visit. Patient is reporting pain in the lower abdomen since yesterday. It is progressively getting worse from the time it started. 2 bowel movements which were incomplete. One episode of vomiting. Feeling symptoms of chills since this morning. [facility] Medical History Subcutaneous mass Surgical History History of shoulder surgery Social History Alcohol intake: never Patient Tobacco Use Status: Never used Tobacco Physical Exam Vital Signs: Last Vital Signs Temp 98.6 F 11/23/23 10:30 Pulse 95 11/23/23 10:30 BP 140/90 H 11/23/23 10:30 Pulse Ox 96 11/23/23 10:30 Oxygen Delivery Method Room Air 11/23/23 10:30 BMI result Body Mass Index 27.1 Const General: cooperative and healthy appearing Nutritional Appearance: well nourished Orientation/consciousness: patient oriented x3 Limitations: no limitations HEENT Head: Yes normal to inspection Eyes General: appearance normal, both eyes and all related structures Neck Neck: Yes normal visual inspection Chest Chest palpation & inspection: normal palpation of entire chest wall Resp Effort & Inspection: normal respiratory effort GI Other: Abdomen: Bowel sounds heard all over. Minimal tenderness on palpation. No rebound. Neuro General: patient oriented x3 Assessment & Plan Assessment & Plan (1) Abdominal pain: Code(s): R10.9 - Unspecified abdominal pain Plan: X-ray images personally reviewed by me. X-ray show copious amount of fecal matter. A few air-fluid levels. Patient now gives history of impacted stool a month ago. I encouraged him to get blood work done. This is to rule out colitis. He was asked to be on a clear diet till all the symptoms resolved. Empiric treatment with Cipro. Orders: Orders Basic Metabolic Panel Today R10.9 - Unspecified abdominal pain Complete Blood Count no Diff Today R10.9 - Unspecified abdominal pain Liver Panel Today R10.9 - Unspecified abdominal pain XR abdomen 3V Today R10.9 - Unspecified abdominal pain Erythrocyte Sedimentation Rate Today R10.9 - Unspecified abdominal pain Coding Level of Care Code Est Pt Level 4 (38166) Diagnoses Abdominal pain R10.9
== END 2023-11-23 12:00 | disposition home or self-care (01) ==
PROVIDERS: Visit Provider Internal Medicine
DX: R10.9 Unspecified abdominal pain (principal)
CPT/HCPCS: 99214

== ENCOUNTER 2023-11-23 11:16 | Outpatient (REF) | payer OTHER, SELFPAY ==
--- NOTE | ~2023-11-23 | XR_ITS ---
EXAMINATION: XR ABDOMEN COMPLETE CLINICAL INDICATION: Abdominal pain COMPARISON: Abdomen CT from 10/11/2023 TECHNIQUE: 2 views of the abdomen. FINDINGS: Lung bases are normal. No dilated bowel loops. There is gas within some loops of small bowel, colon and rectum. No pneumoperitoneum. No evidence of renal calculi. Skeletal structures are unremarkable. XR/XR abdomen 3V IMPRESSION: No acute radiographic abnormalities within the abdomen. No specific source of pain is identified. No evidence of bowel obstruction.
[2023-11-23 13:35] LABS: Hematocrit 40.1 % (42.0-52.0); Hemoglobin 13.6 g/dl (14.0-18.0); Mean Corpuscular HGB Conc 33.9 g/dl (31.0-36.0); Mean Corpuscular Hemoglobin 30.6 pg (27.0-33.0); Mean Corpuscular Volume 90.1 fL (80.0-98.0); Platelet Count 302 X10*3/uL (160-400); Red Blood Count 4.45 X10*6/uL (4.60-5.80); Red Cell Distribution Width 13.5 % (11.0-16.0); White Blood Count 9.1 X10*3/uL (4.8-10.8)
[2023-11-23 13:54] LABS: Alanine Aminotransferase 62 U/L (0-40); Albumin Level 4.5 g/dL (3.5-5.0); Alkaline Phosphatase 41 U/L (39-117); Anion Gap 10 (12-20); Aspartate Amino Transferase 100 U/L (5-37); Bilirubin Direct 0.1 mg/dL (0.0-0.5); Bilirubin Total 0.4 mg/dL (0.0-1.0); Blood Urea Nitrogen 13 mg/dL (9-16); Calcium 8.9 mg/dL (8.4-10.2); Carbon Dioxide 29 mmol/L (22-29); Chloride 107 mmol/L (96-108); Estimated Glomerular Filt Rate > 60; Glucose Random 96 mg/dL (60-115); Potassium 4.1 mmol/L (3.3-5.1); Sodium 142 mmol/L (135-145); Total Protein 7.3 g/dL (6.5-8.0)
[2023-11-23 14:16] LABS: Erythrocyte Sedimentation Rate 2 MM/HR (0-15)
== END 2023-11-23 11:17 | disposition home or self-care (01) ==
LOC: HO.HMGCX 11:16
PROVIDERS: Visit Provider Internal Medicine
DX: R10.9 Unspecified abdominal pain (principal)
CPT/HCPCS: 36415; 74021; 80048; 80076; 85027; 85652

== ENCOUNTER 2024-09-22 11:42 | Emergency (ER) | payer OTHER, SELFPAY ==
--- NOTE | 2024-09-22 | ECG_ITS ---
Test Reason : SOB Blood Pressure : / mmHG Vent. Rate : 083 BPM Atrial Rate : 083 BPM P-R Int : 148 ms QRS Dur : 094 ms QT Int : 354 ms P-R-T Axes : 001 009 015 degrees QTc Int : 415 ms Normal sinus rhythm Normal ECG No previous ECGs available Referred By: Generic ED Physician Electronically Signed By:WILBER KENNEY MD
--- NOTE | ~2024-09-22 | XR_ITS ---
EXAMINATION: XR CHEST CLINICAL INFORMATION: cough COMPARISON: 09/28/2023 TECHNIQUE: 2 views of the chest were obtained. FINDINGS: The cardiac, hilar, and mediastinal contours are normal. The lungs are clear bilaterally. There is no pneumothorax or pleural effusion. There is no focal osseous or soft tissue abnormality. XR/XR chest 2V IMPRESSION: Normal chest. Electronically signed by: Michael Chance MD 09/22/2024 01:50 PM [facility]
[2024-09-22 12:32] VITALS: BP 126/85; PULSE 94; RESP 18; TEMP 36.7; O2SAT 100; BMI 28.1
--- NOTE | 2024-09-22 12:35 | ED.SOB ---
HPI - SOB/Dyspnea General Chief Complaint: Upper Respiratory Symptoms Stated Complaint: SOB, dizziness Related Data Home Medications ?Medication ?Instructions ?Recorded ?Confirmed omeprazole 40 mg capsule,delayed 40 mg PO DAILY 11/23/23 release venlafaxine 37.5 mg 37.5 mg PO DAILY 11/23/23 capsule,extended release 24 hr Previous Rx's ?Medication ?Instructions ?Recorded albuterol sulfate 90 mcg/actuation 2 puff inhalation Q6H PRN 09/28/23 aerosol inhaler shortness of breath or wheezing #6.7 grams benzonatate 100 mg capsule 100 mg PO BID PRN cough #20 caps 09/28/23 cyclobenzaprine 10 mg tablet 10 mg PO TID PRN muscle spasm #20 10/11/23 tabs lidocaine 5 % topical patch 1 patch topical DAILY #30 ea 10/11/23 ciprofloxacin HCl 250 mg tablet 250 mg PO BID #14 tabs 11/23/23 (Cipro) Allergies Allergy/AdvReac Type Severity Reaction Status Date / Time doxycycline Allergy Difficulty Verified 09/22/24 12:35 Breathing tramadol AdvReac Nausea Verified 09/22/24 12:35 [facility] Past Medical History Medical History Subcutaneous mass Surgical History History of shoulder surgery Social History Social History Alcohol intake: never Patient Tobacco Use Status: Never used Tobacco Advance Directives: No Advance Directives Information Provided: Yes Do you have a plan to hurt others: No Plan Physical Exam Vital Signs: Vital Signs: Last Vital Signs Temp 98.1 F 09/22/24 12:32 Pulse 94 09/22/24 12:32 Resp 18 09/22/24 12:32 BP 126/85 09/22/24 12:32 Pulse Ox 100 09/22/24 12:32 O2 Del Method Room Air 09/22/24 12:32 BMI result Body Mass Index 28.1 Course Course Course Narrative: This is a rapid medical exam performed by Loan Ewing PA-C. The patient is a 39-year-old male who presents with cough and cold symptoms for several weeks, he feels as if he can not catch his breath. Associated nasal congestion postnasal drip. On exam, his lungs are clear, no wheezing, he does have an active bronchospasm type cough. We will obtain a viral panel and a chest x-ray. The patient is hemodynamically stable and can return to the waiting room pending his full medical assessment. Medical Decision Making Lab Data Labs: Lab Results 09/22/24 Range/Units 12:41 Influenza Type A (PCR) NEGATIVE (Negative) Influenza Type B (PCR) NEGATIVE (Negative) RSV RNA Qual (PCR) NEGATIVE (Negative) SARS-CoV-2 RNA (RT-PCR) NEGATIVE (Negative) Discharge Plan Discharge Clinical Impression: Cough Patient Disposition: Left W/O Completing Treatment Prescriptions: No Action cyclobenzaprine 10 mg tablet 10 mg PO TID PRN (Reason: muscle spasm) Qty: 20 0RF lidocaine 5 % adhesive patch,medicated 1 patch topical DAILY Qty: 30 0RF Rx Instructions: leave on most painful area for up to 12 hrs benzonatate 100 mg capsule 100 mg PO BID PRN (Reason: cough) Qty: 20 0RF albuterol sulfate 90 mcg/actuation HFA aerosol inhaler 2 puff inhalation Q6H PRN (Reason: shortness of breath or wheezing) Qty: 6.7 0RF omeprazole 40 mg capsule,delayed release(DR/EC) 40 mg PO DAILY venlafaxine 37.5 mg capsule,extended release 24hr 37.5 mg PO DAILY ciprofloxacin HCl [Cipro] 250 mg tablet 250 mg PO BID Qty: 14 0RF Discharge Date/Time: 09/22/24 16:03
[2024-09-22 13:34] LABS: Influenza A PCR NEGATIVE (Negative); Influenza B PCR NEGATIVE (Negative); Resp Syncy Virus RNA Qual PCR NEGATIVE (Negative); SARS COV2 PCR INHOUSE NEGATIVE (Negative)
== END 2024-09-22 16:03 | disposition left against medical advice (07) ==
PROVIDERS: Physician Assistant Medical; Emergency Provider Student in an Organized Health Care Education/Training Program; PCP Internal Medicine
DX: R05.9 Cough, unspecified (principal); R06.02 Shortness of breath; R42 Dizziness and giddiness; Z03.818 Encounter for observation for suspected exposure to other biological agents ruled out
CPT/HCPCS: 0241U; 71046; 93005; 99283

== ENCOUNTER → 2024-09-22 11:55 | Outpatient (BNV) | payer OTHER, SELFPAY | PROVIDERS: Emergency Provider Student in an Organized Health Care Education/Training Program; PCP Internal Medicine; Visit Provider Internal Medicine Cardiovascular Disease | DX: R06.02 Shortness of breath (principal) | CPT/HCPCS: 93010 ==

== ENCOUNTER → 2024-09-22 12:34 | Outpatient (BNV) | payer OTHER, SELFPAY | PROVIDERS: PCP Internal Medicine; Visit Provider Radiology Diagnostic Radiology | DX: R05.9 Cough, unspecified (principal) | CPT/HCPCS: 71046 ==

== ENCOUNTER 2024-11-09 09:02 | Outpatient (AMB) | payer OTHER, SELFPAY ==
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
[2024-11-09 09:18] VITALS: BP 110/80; PULSE 93; O2SAT 96; BMI 28.4
--- OUTSIDE RECORDS SUMMARY | 2024-11-09 10:25 | XMS_ITS | Encounter Summary ---
Author Organization [facility] Address [address] [place] [address] Care Team Providers Care Hemmer Automatic Name Role Phone Patricio Asher MD Primary Care Provider Reason for Visit * Reason Comments Shortness of Breath Pt comes in with SOB for 3 weeks. Pt states everyone he lives with was positive for covid however , pt came back negative. Pt still have lingering cough, headache. Denies fever Encounter Details Date Type Department Care Team (Late st Contact Info) Description 11/05/2024 8:28 AM EST - 11/05/2024 10:00 AM EST Emergency [facility] Emergency [address] [place] [phone] Chika Calvo MD [address] [place] [address] COVID (Primary Dx); Acute cough Discharge Disposition: Home or Self Care Social History Tobacco Use Types Packs/Day Years Used Date Smoking Tobacco: Never Smokeless Tobacco: Never Alcohol Use Standard Drinks/Week Comments Never 0 (1 standard drink = 0.6 oz pur e alcohol) Sex and Gender Information Value Date Recorded Sex Assigned at Male 11/05/2024 8:54 AM EST Gender Identity Male 11/05/2024 8:54 AM EST Sexual Orientation Straight 11/05/2024 8: 54 AM EST Job Start Date Occupation Industry Not on file Not on file Not on file documented as of this encounter Last Filed Vital Signs Vital Sign Reading Time Taken Comments Blood Pressure 128/70 11/05/2024 9:56 AM EST Pulse 88 11/05/2024 9:56 AM EST Temperature 36.8 ??C (98.2 ??F) 11/05/2024 9:56 AM ES T Respiratory Rate 18 11/05/2024 6:02 AM EST Oxygen Saturation 99% 11/05/2024 9:56 AM EST Inhaled Oxygen Concentration - - Weight 82.6 kg (182 lb) 11/05/2024 6:02 AM EST Height 172.7 cm (5' 8 ) 11/05/2024 6:02 AM EST Body Mass Index 27.67 11/05/2024 6:02 AM EST documented in this encounter Discharge Instructions * Discharge Instructions* Chika Calvo MD - 11/05/2024 9:33 AM EST You were seen in the emergency department today for evaluation of a cough and feeling short of breath over the last month or so. You are positive for COVID today which is likely causing some of the symptoms. As we discussed, you may also have developed a cough due to the lisinopril as this is a common side effect. Try an antihistamine to help with the congestion and to dry your secretions as this is likely to help with the cough. Drink plenty of fluids to stay hydrated. Warm tea with honey can help as well. Please follow-up with your doctor. Return to the emergency department at any point with any worsening symptoms or other concerns documented in this encounter Medications at Time of Discharge Medication Sig Dispensed Refills Start Date End Date cholecalciferol (VITAMIN D-3) 50 mcg (2,000 unit) tablet Take 1 tablet (2,000 Units total) by mouth 1 (one) time each day. 07/01/2024 cyclobenzaprine (FLEXERIL) 10 mg tablet Take 1 tablet (10 mg total) by mouth at bedtime as needed. 07/01/2024 dicyclomine (BENTYL) 10 mg capsule TAKE 1 CAPSULE BY MOUTH 3 TIMES DAILY NEEDED (ABDOMINAL PAIN/ SPASM). 270 capsule 09/23/2024 gabapentin (NEURONTIN) 100 mg capsule Take 1 Capsule by mouth 3 times daily. 07/01/2024 lisinopriL (PRINIVIL,ZESTRIL) 5 mg tablet Take 1 Tablet by mouth daily for 180 days. 07/01/2024 12/28/2024 omeprazole (PriLOSEC) [address] capsule Take 1 capsule (40 mg total) by mouth 2 (two) times a day. 07/01/2024 oxyCODONE (ROXICODONE) 5 mg immediate release tablet Take 1 Tablet by mouth daily as needed for Pain (severe pain). 07/01/2024 venlafaxine XR (EFFEXOR-XR) 75 mg 24 hr capsule Take 1 capsule (75 mg total) by mouth 1 (one) time each day. 07/01/2024 documented as of this encounter Discharge Disposition Disposition Code Departure Means Destination Comment s Home or Self Long Term documented in this encounter Progress Notes * Abiola Meyer RN - 11/05/2024 5:59 AM EST Pt comes in with SOB for 3 weeks. Pt states everyone he lives with was positive for covid however ,pt came back negative. Pt still have lingering cough, headache. Denies fever * Chika Calvo MD - 11/05/2024 5:56 AM EST Emergency Medicine Note Patient Name: Michael Wang Initial Evaluation: 11/05/2024 : 1985 Patient's PCP: Patricio Asher MD Emergency Physician: Chika Calvo MD History of Present Illness Chief Complaint: Chief Complaint Patient presents with ??? Shortness of Breath Pt comes in with SOB for 3 weeks. Pt states everyone he lives with was positive for covid however ,pt came back negative. Pt still have lingering cough, headache. Denies fever HPI: 39-year-old male with a history of high blood pressure on lisinopril and acid reflux on omeprazole comes in today for evaluation of a cough that started approximately a month ago. He does report at that time he did start lisinopril. It has been gradually worsening and he feels as though he needs toclear his throat constantly. He notes that for the last week or so many people that he lives with have had COVID. He has tested at home and has had both positive and negative tests. He does use an inhaler at times but does not feel like it is helpful. He does not carry a diagnosis of asthma but received an inhaler in the past when he has had bronchitis. There are 2 small children at home that do not go to daycare. ROS: I have performed a ROS with the pertinent positives and negatives documented in the history ofpresent illness. Previous History Past Medical History: Diagnosis Date ??? ADHD (attention deficit hyperactivity disorder) 06/04/2021 DX:ADHD (attention deficit hyperactivity disorder) ??? GERD (gastroesophageal reflux disease) 06/04/2021 DX:GERD (gastroesophageal reflux disease) ??? Marijuana use 06/04/2021 DX:Marijuana use; COMMENT: Utox positive 05/28/21 ??? Mood disorder (CMS/HCC) 06/04/2021 DX:Mood disorder (HCC) ??? Substance use disorder 04/25/2021 DX:Substance use disorder; COMMENT: On suboxone ??? Tubular adenoma 06/04/2021 DX:Tubular adenoma; COMMENT: CN 09/11/20 Past Surgical History: Procedure Laterality Date ??? COLONOSCOPY 09/11/2020 PROCEDURE: HISTORICAL COLONOSCOPY; COMMENT: tubular adenoma ??? ESOPHAGOGASTRODUODENOSCOPY 09/11/2020 PROCEDURE: OR ESOPHAGOGASTRODUODENOSCOPY TRANSORAL DIAGNOSTIC; COMMENT: polyp in the cardia ??? OTHER SURGICAL HISTORY 10/23/2017 PROCEDURE: HISTORY OTHER; COMMENT: laparoscopic lysis of single omental band Dr. Benjamin Social History Tobacco Use ??? Smoking status: Never ??? Smokeless tobacco: Never Substance Use Topics ??? Alcohol use: Never ??? Drug use: Not Currently Family History Problem Relation Name Age of Onset ??? Diabetes Father ??? Coronary artery disease Father ??? Diabetes Brother ??? Other cancer Neg Hx is allergic to doxycycline, latex, and tramadol. No current facility-administered medications on file prior to encounter. Current Outpatient Medications on File Prior to Encounter Medication Sig Dispense Refill ??? cholecalciferol (VITAMIN D-3) 50 mcg (2,000 unit) tablet Take 1 tablet (2,000 Units total) by mouth 1 (one) time each day. ??? cyclobenzaprine (FLEXERIL) 10 mg tablet Take 1 tablet (10 mg total) by mouth at bedtime as needed. ??? dicyclomine (BENTYL) 10 mg capsule TAKE 1 CAPSULE BY MOUTH 3 TIMES DAILY NEEDED (ABDOMINAL PAIN/ SPASM). 270 capsule 0 ??? gabapentin (NEURONTIN) 100 mg capsule Take 1 Capsule by mouth 3 times daily. ??? lisinopriL (PRINIVIL,ZESTRIL) 5 mg tablet Take 1 Tablet by mouth daily for 180 days. ??? omeprazole (PriLOSEC) [address] capsule Take 1 capsule (40 mg total) by mouth 2 (two) times a day. ??? oxyCODONE (ROXICODONE) 5 mg immediate release tablet Take 1 Tablet by mouth daily as needed forPain (severe pain). ??? venlafaxine XR (EFFEXOR-XR) 75 mg 24 hr capsule Take 1 capsule (75 mg total) by mouth 1 (one) time each day. Physical Exam ED Triage Vitals [11/05/24 0602] Temp Heart Rate Resp BP 36.6 ??C (97.9 ??F) 86 18 115/81 SpO2 Temp Source Heart Rate Source Patient Position 99 % Oral -- -- BP Location FiO2 (%) -- -- General: Well-appearing, well nourished, in no acute distress HEENT: PERRL, EOMI, external ears and nose appear unremarkable, airway is patent. Oropharynx clear Neck: Supple, full range of motion Chest: Clear to auscultation; no evidence of respiratory distress Circulatory: RRR, extremities well perfused Abdomen: Non-distended, Non-Tender Extremities: Normal ROM, No edema Skin: Warm and dry Neuro: Alert and oriented, no focal deficits Results Labs Reviewed RESPIRATORY VIRUS PANEL MOLECULAR STUDY - Abnormal Result Value Adenovirus Detection by PCR Not Detected Influenza A PCR Not Detected Influenza B PCR Not Detected Coronavirus 229E Not Detected Coronavirus HKU1 Not Detected Coronavirus OC43 Not Detected Coronavirus NL63 Not Detected Parainfluenza Virus 1 Not Detected Parainfluenza Virus 2 Not Detected Parainfluenza Virus 3 Not Detected Parainfluenza Virus 4 Not Detected RSV PCR Not Detected Human Metapneumovirus A and B Not Detected Rhinovirus/Enterovirus Not Detected Bordetella pertussis Not Detected Bordetella parapertussis Not Detected Mycoplasma pneumo by PCR Not Detected Chlamydia pneumoniae Not Detected SARS COV-2 Detected (*) Narrative: Testing was performed using the [employer] Respiratory Pathogen PCR Assay. All results must be correlated with the clinical findings. Results should not be used as the sole basis for diagnosis. False Negative results may occur from the presence of sequence variants in the region targeted by the assay or the presence of inhibitors. Results may be affected by concurrent antiviral/antimicrobial therapy or levels of organisms that are below the limit of detection. COMPREHENSIVE METABOLIC PANEL - Abnormal Sodium 139 Potassium 3.5 Chloride 108 CO2 26 Anion Gap 5 Glucose 104 (*) BUN 20 Creatinine 1.02 eGFR 95 BUN/Creatinine Ratio 19.6 Calcium 8.8 AST (SGOT) 19 ALT (SGPT) 43 Alkaline Phosphatase 84 Total Protein 7.4 Albumin 4.0 Total Bilirubin 0.5 CBC WITH AUTO DIFFERENTIAL - Abnormal WBC 4.5 (*) RBC 3.90 (*) Hemoglobin 11.6 (*) Hematocrit 34.9 (*) MCV 89.0 MCH 29.6 MCHC 33.2 RDW 13.2 Platelets 326 MPV 10.0 NRBC 0.0 NRBC Absolute 0.00 Neutrophils Relative 48.4 Lymphocytes Relative 36.9 Monocytes Relative 8.2 Eosinophils Relative 5.6 Basophils Relative 0.7 Immature Granulocytes Relative 0.2 Neutrophils Absolute 2.18 Lymphocytes Absolute 1.66 Monocytes Absolute 0.37 Eosinophils Absolute 0.25 Basophils Absolute 0.03 Immature Granulocytes Absolute 0.01 CBC AND DIFFERENTIAL Narrative: The following orders were created for panel order CBC and differential. Procedure Abnormality Status --------- ------ CBC auto differential[[id number]] Abnormal Final result Please view results for these tests on the individual orders. Abnormal Labs Reviewed RESPIRATORY VIRUS PANEL MOLECULAR STUDY - Abnormal; Notable for the following components: Result Value SARS COV-2 Detected (*) All other components within normal limits Narrative: Testing was performed using the [employer] Respiratory Pathogen PCR Assay. All results must be correlated with the clinical findings. Results should not be used as the sole basis for diagnosis. False Negative results may occur from the presence of sequence variants in the region targeted by the assay or the presence of inhibitors. Results may be affected by concurrent antiviral/antimicrobial therapy or levels of organisms that are below the limit of detection. COMPREHENSIVE METABOLIC PANEL - Abnormal; Notable for the following components: Glucose 104 (*) All other components within normal limits CBC WITH AUTO DIFFERENTIAL - Abnormal; Notable for the following components: WBC 4.5 (*) RBC 3.90 (*) Hemoglobin 11.6 (*) Hematocrit 34.9 (*) All other components within normal limits XR Chest 2 Views Final Result Impression: Normal chest. [id number] -------- FINAL REPORT -------- Dictated By: Elaine Echols Dictated Date: 11/05/2024 07:53 ET Assigned Physician: Elaine Echols Reviewed and Electronically Signed By: Elaine Echols Signed Date: 11/05/2024 07:54 ET Workstation ID: [id number] Transcribed By: Self Edit Transcribed Date: 11/05/2024 07:53 ET I have discussed the incidental/abnormal imaging and/or lab abnormalities with the patient and haveinstructed them the need for further evaluation and workup with their primary care doctor. I have provided the patient with a paper copy of the abnormality. The laboratory results, imaging results and other diagnostic exam results were reviewed in the EMR. EKG Interpretation Critical Care Time None Medical Decision Making Medications - No data to display Clinical Impressions as of 11/05/24932 COVID Acute cough Differential diagnosis includes viral illness, pneumonia, cardiac cause, cough secondary to lisinopril, acid reflux Labs are overall reassuring, chest x-ray interpreted by myself as negative for acute process. He is positive for COVID which is likely causing some of the symptoms. Will recommend an antihistamine as he does have significant nasal secretions and postnasal drip likely contributing to the cough. Will also recommend tea with honey to try to help with his throat which feels raw from coughing and may also help with the cough. He will follow-up with his PCP and understands to return if worse Procedures Procedures Diagnosis No diagnosis found. Disposition Data Unavailable ED Prescriptions None Physician Attestation Chika Calvo MD 11/05/24932 documented in this encounter Plan of Treatment Upcoming Encounters Date Type Department Care Team (Late st Contact Info) Description 11/22/2024 8:00 AM EST Telemedicine Adult Medicine [address] [phone] Patricio Asher MD [address] [place] [phone] documented as of this encounter Procedures Procedure Name Priority Date/Time Associated Diagnosis Comments XR CHEST 2 VIEWS STAT 11/05/2024 6:31 AM EST RESPIRATORY VIRUS PANEL MOLECULAR STUDY STAT 11/05/2024 6:23 AM EST CBC WITH AUTO DIFFERENTIAL STAT 11/05/2024 6:21 AM EST CBC AND DIFFERENTIAL STAT 11/05/2024 6:21 AM EST COMPREHENSIVE METABOLIC PANEL STAT 11/05/2024 6:21 AM EST documented in this encounter Results * XR Chest 2 Views (11/05/2024 6:31 AM EST) Anatomical Region Laterality Modality Body Radiographic Misty ging 11/05/2024 7:53 AM EST Impressions 11/05/2024 7:54 AM EST Impression: Normal chest. [id number] -------- FINAL REPORT -------- Dictated By: Elaine Echols Dictated Date: 11/05/2024 07:53 ET Assigned Physician: Elaine Echols Reviewed and Electronically Signed By: Elaine Echols Signed Date: 11/05/2024 07:54 ET Workstation ID: [id number] Transcribed By: Self Edit Transcribed Date: 11/05/2024 07:53 ET Narrative 11/05/2024 7:54 AM EST History: Chest pain. Comparison: 04/09/10 Findings: PA and lateral views. The cardiomediastinal silhouette, hilar contours and pulmonary vascularity are within normal limits. The lungs are clear. The costophrenic angles are sharp. Bones and soft tissues are unremarkable. Procedure Note Elaine Echols MD - 11/05/2024 History: Chest pain. Comparison: 04/09/10 Findings: PA and lateral views. The cardiomediastinal silhouette, hilar contours andpulmonary vascularity are within normal limits. The lungs are clear. Thecostophrenic angles are sharp. Bones and soft tissues are unremarkable. IMPRESSION: Impression: Normal chest. [id number] -------- FINAL REPORT -------- Dictated By: Elaine Echols Dictated Date: 11/05/2024 07:53 ET Assigned Physician: Elaine Echols Reviewed and Electronically Signed By: Elaine Echols Signed Date: 11/05/2024 07:54 ET Workstation ID: [id number] Transcribed By: Self Edit Transcribed Date: 11/05/2024 07:53 ET China Sparrow MD IMG XR PROCEDURE S * (ABNORMAL) Respiratory virus panel molecular study (11/05/2024 6:23 AM EST) Adenovirus Detection by PCR Not Detected Not Detected LAB MICROBIOLOGY METHOD 11/05/2024 8:[address] [facility] Influenza A PCR Not Detected Not Detected LAB MICROBIOLOGY METHOD 11/05/2024 8:[address] [facility] Influenza B PCR Not Detected Not Detected LAB MICROBIOLOGY METHOD 11/05/2024 8:[address] [facility] Coronavirus 229E Not Detected Not Detected LAB MICROBIOLOGY METHOD 11/05/2024 8:[address] [facility] Coronavirus HKU1 Not Detected Not Detected LAB MICROBIOLOGY METHOD 11/05/2024 8:[address] [facility] Coronavirus OC43 Not Detected Not Detected LAB MICROBIOLOGY METHOD 11/05/2024 8:[address] [facility] Coronavirus NL63 Not Detected Not Detected LAB MICROBIOLOGY METHOD 11/05/2024 8:[address] [facility] Parainfluenza Virus 1 Not Detected Not Detected LAB MICROBIOLOGY METHOD 11/05/2024 8:[address] [facility] Parainfluenza Virus 2 Not Detected Not Detected LAB MICROBIOLOGY METHOD 11/05/2024 8:[address] [facility] Parainfluenza Virus 3 Not Detected Not Detected LAB MICROBIOLOGY METHOD 11/05/2024 8:[address] [facility] Parainfluenza Virus 4 Not Detected Not Detected LAB MICROBIOLOGY METHOD 11/05/2024 8:[address] [facility] RSV PCR Not Detected Not Detected LAB MICROBIOLOGY METHOD 11/05/2024 8:[address] [facility] Human Metapneumovirus A and B Not Detected Not Detected LAB MICROBIOLOGY METHOD 11/05/2024 8:[address] [facility] Rhinovirus/Entero virus Not Detected Not Detected LAB MICROBIOLOGY METHOD 11/05/2024 8:[address] [facility] Bordetella pertussis Not Detected Not Detected LAB MICROBIOLOGY METHOD 11/05/2024 8:[address] [facility] Bordetella parapertussis Not Detected Not Detected LAB MICROBIOLOGY METHOD 11/05/2024 8:[address] [facility] Mycoplasma pneumo by PCR Not Detected Not Detected LAB MICROBIOLOGY METHOD 11/05/2024 8:[address] [facility] Chlamydia pneumoniae Not Detected Not Detected LAB MICROBIOLOGY METHOD 11/05/2024 8:[address] [facility] SARS COV-2 Detected(A ) Not Detected LAB MICROBIOLOGY METHOD 11/05/2024 8:[address] [facility] Swab Nasopharyngeal structure / Unknown Non-blood Collection / Unknown 11/05/2024 6:23 AM EST 11/05/2024 7:01 AM EST [facility] - 11/05/2024 8:57 AM EST Testing was performed using the [employer] Respiratory Pathogen PCR Assay. All results must be correlated with the clinical findings. Results should not be used as the sole basis for diagnosis. False Negative results may occur from the presence of sequence variants in the region targeted by the assay or the presence of inhibitors. Results may be affected by concurrent antiviral/antimicrobial therapy or levels of organisms that are below the limit of detection. China Sparrow MD LAB MICROBIOLOGY - GENERAL ORDERABLES [facility] [address] [place] [address], * (ABNORMAL) CBC auto differential (11/05/2024 6:21 AM EST) WBC 4.5(L) 4.8 - 10.8 K/mcL LAB HEMETOLOGY METHOD 11/05/2024 7:[address] [facility] RBC 3.90(L) 4.50 - 5.50 M/mcL LAB HEMETOLOGY METHOD 11/05/2024 7:[address] [facility] Hemoglobin 11.6(L) 13.5 - 17.5 g/dL LAB HEMETOLOGY METHOD 11/05/2024 7:[address] [facility] Hematocrit 34.9(L) 42.0 - 54.0 % LAB HEMETOLOGY METHOD 11/05/2024 7:[address] [facility] MCV 89.0 79.0 - 98.0 FL LAB HEMETOLOGY METHOD 11/05/2024 7:[address] [facility] MCH 29.6 27.0 - 32.0 pcg LAB HEMETOLOGY METHOD 11/05/2024 7:[address] [facility] MCHC 33.2 32.0 - 37.0 g/dL LAB HEMETOLOGY METHOD 11/05/2024 7:[address] [facility] RDW 13.2 11.0 - 15.0 % LAB HEMETOLOGY METHOD 11/05/2024 7:[address] [facility] Platelets 326 130 - 400 K/mcL LAB HEMETOLOGY METHOD 11/05/2024 7:[address] [facility] MPV 10.0 7.0 - 11.0 FL LAB HEMETOLOGY METHOD 11/05/2024 7:[address] [facility] NRBC 0.0 <1.0 % LAB HEMETOLOGY METHOD 11/05/2024 7:[address] [facility] NRBC Absolute 0.00 <0.10 K/mcL LAB HEMETOLOGY METHOD 11/05/2024 7:[address] [facility] Neutrophils Relative 48.4 % LAB HEMETOLOGY METHOD 11/05/2024 7:[address] [facility] Lymphocytes Relative 36.9 % LAB HEMETOLOGY METHOD 11/05/2024 7:[address] [facility] Monocytes Relative 8.2 % LAB HEMETOLOGY METHOD 11/05/2024 7:[address] [facility] Eosinophils Relative 5.6 % LAB HEMETOLOGY METHOD 11/05/2024 7:[address] [facility] Basophils Relative 0.7 % LAB HEMETOLOGY METHOD 11/05/2024 7:[address] [facility] Immature Granulocytes Relative 0.2 % LAB HEMETOLOGY METHOD 11/05/2024 7:[address] [facility] Neutrophils Absolute 2.18 1.50 - 7.00 K/mcL LAB HEMETOLOGY METHOD 11/05/2024 7:[address] [facility] Lymphocytes Absolute 1.66 1.00 - 5.00 K/mcL LAB HEMETOLOGY METHOD 11/05/2024 7:[address] [facility] Monocytes Absolute 0.37 0.20 - 1.00 K/mcL LAB HEMETOLOGY METHOD 11/05/2024 7:[address] [facility] Eosinophils Absolute 0.25 0.00 - 0.50 K/mcL LAB HEMETOLOGY METHOD 11/05/2024 7:[address] [facility] Basophils Absolute 0.03 0.00 - 0.20 K/mcL LAB HEMETOLOGY METHOD 11/05/2024 7:[address] [facility] Immature Granulocytes Absolute 0.01 0.00 - 0.03 K/mcL LAB HEMETOLOGY METHOD 11/05/2024 7:[address] [facility] Blood Venous blood specimen / Unknown Venipuncture / Unknown 11/05/2024 6:21 AM EST 11/05/2024 7:01 AM EST China Sparrow MD LAB BLOOD ORDERA BLES [facility] [address] [place] [address], * (ABNORMAL) Comprehensive metabolic panel (11/05/2024 6:21 AM EST) Sodium 139 133 - 145 mmol/L LAB CHEMISTRY METHOD 11/05/2024 7:[address] [facility] Potassium 3.5 3.5 - 5.5 mmol/L LAB CHEMISTRY METHOD 11/05/2024 7:[address] [facility] Chloride 108 96 - 110 mmol/L LAB CHEMISTRY METHOD 11/05/2024 7:[address] [facility] CO2 26 21 - 32 mmol/L LAB CHEMISTRY METHOD 11/05/2024 7:[address] [facility] Anion Gap 5 3 - 11 LAB CHEMISTRY METHOD 11/05/2024 7:[address] [facility] Glucose 104(H) 70 - 100 mg/dL LAB CHEMISTRY METHOD 11/05/2024 7:[address] [facility] BUN 20 5 - 25 mg/dL LAB CHEMISTRY METHOD 11/05/2024 7:[address] [facility] Creatinine 1.02 0.70 - 1.30 mg/dL LAB CHEMISTRY METHOD 11/05/2024 7:[address] [facility] eGFR 95 >=60 mL/min/1. 73m2 LAB CHEMISTRY METHOD 11/05/2024 7:[address] [facility] Comment:Calculation based on the??Chronic Kidney Disease Epidemiology Collaboration (CKD-EPI) equation refit??without adjustment for race. BUN/Creatinine Ratio 19.6 LAB CHEMISTRY METHOD 11/05/2024 7:[address] [facility] Calcium 8.8 8.5 - 10.5 mg/dL LAB CHEMISTRY METHOD 11/05/2024 7:[address] [facility] AST (SGOT) 19 10 - 42 unit/L LAB CHEMISTRY METHOD 11/05/2024 7:[address] [facility] ALT (SGPT) 43 10 - 60 unit/L LAB CHEMISTRY METHOD 11/05/2024 7:[address] [facility] Alkaline Phosphatase 84 42 - 121 unit/L LAB CHEMISTRY METHOD 11/05/2024 7:[address] [facility] Total Protein 7.4 6.0 - 8.0 g/dL LAB CHEMISTRY METHOD 11/05/2024 7:[address] [facility] Albumin 4.0 3.2 - 5.0 g/dL LAB CHEMISTRY METHOD 11/05/2024 7:[address] [facility] Total Bilirubin 0.5 0.0 - 1.4 mg/dL LAB CHEMISTRY METHOD 11/05/2024 7:[address] [facility] Blood Venous blood specimen / Unknown Venipuncture / Unknown 11/05/2024 6:21 AM EST 11/05/2024 7:01 AM EST China Sparrow MD LAB BLOOD ORDERA BLES [facility] [address] [place] [address], documented in this encounter Visit Diagnoses Diagnosis COVID- Primary Acute cough documented in this encounter Additional Health Concerns Infection Onset Date Last Indicated Resolved Time Respiratory Rule-Out 11/05/2024 11/05/2024 025 8:57 AM EST COVID-19 Rule-Out 11/05/2024 11/05/2024 11/05/2024 8:57 AM EST COVID-19 11/05/2024 11/05/2024 documented as of this encounter Care Teams Hemmer Automatic Relationship Specialty Start Date End Date Patricio Asher MD [address] [place] [id number] PCP - General 10/21/23 documented as of this encounter
--- OUTSIDE RECORDS SUMMARY | 2024-11-09 10:26 | XMS_ITS | Encounter Summary ---
Author Organization [facility] [address] Care Team Providers Care Sports Umpire Name Role Phone Patricio Asher MD Primary Care Provider [phone] Encounter Details Date Type Department Care Team (Late st Contact Info) Description 11/02/2024 Telephone Adult Medicine [address] [phone] Patricio Asher MD [address] [place] [phone] Social History Tobacco Use Types Packs/Day Years [...] on file documented as of this encounter Progress Notes * Hannah Bridges RN - 11/07/2024 11:43 AM EST Call to pt 11/02 with no response , pt not able top take paxlovid after 5 days Encounter closed with no pt contact * Yamila Harvey RN - 11/02/2024 3:53 PM EST Left vm for pt to return my call. * Anuradha [place] - 11/02/2024 3:23 PM EST Patient call requires triage: Symptoms patient is presenting: Patient is calling regarding taking two COVID test yesterday, test came back negative. Took test again today, results were positive. Patient is calling asking if he can get the Paxil covid medication sent to he's pharmacy How long has patient had these symptoms?: 11/02/2024 For ALL patients calling to schedule any appointment (routine, sick visit, follow up, consult, etc.) in the outpatient setting please ask the following questions: Do you have fever of higher than 101, sore throat with difficulty swallowing or severe shortness ofbreath? yes If YES to any of these above symptoms, send a message to triage and do not book. Red dot. If no, an audio or video visit should be booked. Have you had close contact with someone with Coronavirus in the last 14 days? yes Have you traveled abroad? no Have you traveled recently to another state outside of [place], [place], [place], [place], [place], [place], [place]? no o If yes, did you quarantine for 14 days or have a negative covid test? no If yes to any of the above, patient is not to be scheduled in office until after 14 day quarantine or negative covid test. If pain or injury related was it due to an accident at work or from a motor vehicle accident? If yes, date of accident/Injury: No If yes, gather 3rd constitution party insurance information Third Libertarian Information: not applicable PCP: Patricio Asher MD Payor: [employer] / [facility]: [facility] / Product Type: *No Product type* / documented in this encounter Plan of Treatment Upcoming Encounters Date Type Department Care Team (Late st Contact Info) Description 11/22/2024 8:00 AM EST Telemedicine Adult Medicine [address] [phone] Patricio Asher MD [address] [place] [phone] documented as of this encounter Visit Diagnoses Not on filedocumented in this encounter Additional Health Concerns Infection Onset Date Last Indicated Resolved Time Respiratory Rule-Out 11/05/2024 11/05/2024 025 8:57 AM EST COVID-19 Rule-Out 11/05/2024 11/05/2024 11/05/2024 8:57 AM EST COVID-19 11/05/2024 11/05/2024 documented as of this encounter Care Teams Sports Umpire Relationship Specialty Start Date End Date Patricio Asher MD [address] [place] [address] PCP - General 10/21/23 documented as of this encounter
--- OUTSIDE RECORDS SUMMARY | 2024-11-09 10:26 | XMS_ITS | Clinical Summary ---
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 07/01/2024 Active cyclobenzaprine (FLEXERIL) 10 mg tablet Take 1 tablet (10 mg total) by mouth at bedtime as needed. 07/01/2024 Active gabapentin (NEURONTIN) 100 mg capsule Take 1 Capsule by mouth 3 times daily. 07/01/2024 Active lisinopriL (PRINIVIL,ZESTRIL) 5 mg tablet Take 1 Tablet by mouth daily for 180 days. 07/01/2024 12/28/2024 Active omeprazole (PriLOSEC) [address] capsule Take 1 capsule (40 mg total) by mouth 2 (two) times a day. 07/01/2024 Active oxyCODONE (ROXICODONE) 5 mg immediate release tablet Take 1 Tablet by mouth daily as needed for Pain (severe pain). 07/01/2024 Active venlafaxine XR (EFFEXOR-XR) 75 mg 24 hr capsule Take 1 capsule (75 mg total) by mouth 1 (one) time each day. 07/01/2024 Active dicyclomine (BENTYL) 10 mg capsule TAKE 1 CAPSULE BY MOUTH 3 TIMES DAILY NEEDED (ABDOMINAL PAIN/ SPASM). 270 capsule 09/23/2024 Active Active Problems Problem Noted Date Diagnosed Date Chronic midline low back pain without sciatica 0 07/01/2024 Irritable bowel syndrome 07/01/2024 Primary hypertension 07/01/2024 Anxiety and depression 10/29/2023 Gastric polyp 10/29/2023 Renal calculi 10/29/2023 Tension headache 10/29/2023 Mild oxycodone-acetaminophen use disorder 2020 ADHD (attention deficit hyperactivity disorder) 06/04/2021 Gastroesophageal reflux disease without esophagi tis 06/04/2021 Marijuana use 06/04/2021 Overview (08/16/2024): Utox positive 05/28/21 Mood disorder 06/04/2021 Tubular adenoma 06/04/2021 Overview (08/16/2024): CN 09/11/20 Substance use disorder 04/25/2021 Overview (08/16/2024): On suboxone Encounters Date Type Department Care Team Description 11/05/2024 8:28 AM EST - 11/05/2024 10:[address] [facility] [address] [place] [phone] Chika Calvo MD COVID (Primary Dx); Acute cough Discharge Disposition: Home or Self Care 11/02/2024 Telephone Adult Medicine [address] [phone] Patricio Asher MD 09/26/2024 Telephone Adult Medicine [address] [phone] Imelda Dodson PA from Last 3 Months Immunizations Name Administration Dates Next Due Influenza trivalent, 0.5mL, preservative free (Fluarix; FluLaval; Fluzone) ages 6mo and older (Afluria) 3 years and older 06/24/2020,07/21/2014 Influenza trivalent, with pr eservative (Fluzone; Afluria) 6mo and older 10/24/2017 Moderna SARS-CoV-2 COVID-19, mRNA, LNP-S, preservative free 01/09/2023 Tdap Tetanus diptheria acell ular pertussis (Boostrix; Adacel) 7yo and older 12/14/2023,08/01/2021,07/19/2011 Surgical History Surgery Date Site/Laterality Comments COLONOSCOPY 09/11/2020 PROCEDURE: HISTORICAL COLONOSCOPY; COMMENT: tubular adenoma ESOPHAGOGASTRODUODENOSCOPY 09/11/2020 PROCEDURE: [place] ESOPHAGOGASTRODUODENOSCOPY TRANSORAL DIAGNOSTIC; COMMENT: polyp in the cardia OTHER SURGICAL HISTORY 10/23/2017 PROCEDURE: HISTORY OTHER; COMMENT: laparoscopic lysis of single omental band Dr. Benjamin Medical History Medical History Date Comments GERD (gastroesophageal reflux disease) 06/04/2021 DX:GERD (gastroesophageal reflux disease) ADHD (attention deficit hype ractivity disorder) 06/04/2021 DX:ADHD (attention deficit hyperactivity disorder) Marijuana use 06/04/2021 DX:Marijuana use ; COMMENT: Utox positive 05/28/21 Mood disorder (CMS/HCC) 06/04/2021 DX:Mood disorder (HCC) Substance use disorder 04/25/2021 DX:Substa nce use disorder; COMMENT: On suboxone Tubular adenoma 06/04/2021 DX:Tubular adeno ma; COMMENT: CN 09/11/20 Family History Medical History Relation Name Comments Diabetes Brother Coronary artery disease Father Diabetes Father Other cancer Neg Hx Relation Name Status Comments Brother Father Social History Tobacco Use Types Packs/Day Years [...] file Not on file Not on file Obstetrics History Last Filed Vital Signs Vital Sign Reading [...] Mass Index 27.67 11/05/2024 6:02 AM EST Plan of Treatment Upcoming Encounters Date Type Department Care Team (Late st Contact Info) Description 11/22/2024 8:00 AM EST Telemedicine Adult Medicine [address] [phone] Patricio Asher MD [address] [place] [phone] Health Maintenance Due Date Last Done Comments Hepatitis A Vaccines (1 of 2 - Risk 2-dose series) 2002 Hepatitis B Vaccines (1 of 3 - 19+ 3-dose series) 2002 HIV Screening 09/14/2022 Social Influencers of Health Screening 09/14/2022 COVID-19 Vaccine (3 - 2023-2 5 season) 2024 01/09/2023, 02/16/2021 Influenza Vaccine (#1) 2024 , 10/24/2017, 07/21/2014 Depression Screening 07/01/2025 07/01/2024 Hypertension/CHF/CAD Annual BMP Blood Test 11/05/2025 11/05/2024, 03/08/2024, 03/08/2024 Cholesterol Screening (Lipid Panel) 12/14/2028 12/15/2023 DTaP,Tdap,and Td Vaccines (4 - Td or Tdap) 12/13/2033 12/14/2023, 08/01/2021, 07/19/2011 Pneumococcal Vaccine: Pediatrics (0 to 5 Years) and At-Risk Patients (6 to 64 Years) Aged Out 10/24/2017 No longer eligible b ased on patient's age to complete this topic Hepatitis C Screening Completed 11/30/2023 HIB Vaccines Aged Out No longer eligi ble based on patient's age to complete this topic HPV Vaccines Aged Out No longer eligi ble based on patient's age to complete this topic IPV Vaccines Aged Out No longer eligi ble based on patient's age to complete this topic MMR Vaccines Aged Out No longer eligi ble based on patient's age to complete this topic Meningococcal ACWY Vaccine Aged Out N o longer eligible based on patient's age to complete this topic RSV Immunization Patients Under 20 months Aged Out No longer eligible b ased on patient's age to complete this topic Varicella Vaccines Aged Out No longer eligible based on patient's age to complete this topic Procedures Procedure Name Priority Date/Time Associated Diagnosis Comments XR CHEST 2 VIEWS STAT 11/05/2024 6:31 AM EST RESPIRATORY VIRUS PANEL MOLECULAR STUDY STAT 11/05/2024 6:23 AM EST CBC WITH AUTO DIFFERENTIAL STAT 11/05/2024 6:21 AM EST COMPREHENSIVE METABOLIC PANEL STAT 11/05/2024 6:21 AM EST CBC AND DIFFERENTIAL STAT 11/05/2024 6:21 AM EST DEPRESSION SCREENING Routine 07/01/2024 LIPID PANEL Routine 12/15/2023 HEPATITIS C SCREENING Routine 11/30/2023 from Last 3 Months or Most Recently Relevant to Health Maintenance Results * XR Chest 2 Views (11/05/2024 6:31 AM EST) Anatomical Region Laterality Modality Body Radiographic Misty ging 11/05/2024 7:53 AM EST Impressions 11/05/2024 7:54 AM EST Impression: Normal chest. [id number] -------- FINAL REPORT -------- Dictated By: Elaine Echols Dictated Date: 11/05/2024 07:53 ET Assigned Physician: Elaine Echols Reviewed and Electronically Signed By: Elaine Echols Signed Date: 11/05/2024 07:54 ET Workstation ID: [id number] Transcribed By: Self Edit Transcribed Date: 11/05/2024 [...] tissues are unremarkable. IMPRESSION: Impression: Normal chest. [id number] -------- FINAL REPORT -------- Dictated By: Elaine Echols Dictated Date: 11/05/2024 07:53 ET Assigned Physician: Elaine Echols Reviewed and Electronically Signed By: Elaine Echols Signed Date: 11/05/2024 07:54 ET Workstation ID: [id number] Transcribed By: Self Edit Transcribed Date: 11/05/2024 07:53 ET China Sparrow MD IMG XR PROCEDURE S * (ABNORMAL) Respiratory virus panel molecular study (11/05/2024 6:23 AM EST) Adenovirus Detection by PCR Not Detected Not Detected LAB MICROBIOLOGY METHOD 11/05/2024 8:57 AM EST [facility] Influenza A PCR Not Detected Not Detected LAB MICROBIOLOGY METHOD 11/05/2024 8:57 AM EST [facility] Influenza B PCR Not Detected Not Detected LAB MICROBIOLOGY METHOD 11/05/2024 8:57 AM EST [facility] Coronavirus 229E Not Detected Not Detected LAB MICROBIOLOGY METHOD 11/05/2024 8:57 AM [facility] Coronavirus HKU1 Not Detected Not Detected LAB MICROBIOLOGY METHOD 11/05/2024 8:57 AM EST [facility] Coronavirus OC43 Not Detected Not Detected LAB MICROBIOLOGY METHOD 11/05/2024 8:57 AM [facility] Coronavirus NL63 Not Detected Not Detected LAB MICROBIOLOGY METHOD 11/05/2024 8:57 AM [facility] Parainfluenza Virus 1 Not Detected Not Detected LAB MICROBIOLOGY METHOD 11/05/2024 8:57 AM [facility] Parainfluenza Virus 2 Not Detected Not Detected LAB MICROBIOLOGY METHOD 11/05/2024 8:57 AM [facility] Parainfluenza Virus 3 Not Detected Not Detected LAB MICROBIOLOGY METHOD 11/05/2024 8:57 AM [facility] Parainfluenza Virus 4 Not Detected Not Detected LAB MICROBIOLOGY METHOD 11/05/2024 8:57 AM [facility] RSV PCR Not Detected Not Detected LAB MICROBIOLOGY METHOD 11/05/2024 8:57 AM [facility] Human Metapneumovirus A and B Not Detected Not Detected LAB MICROBIOLOGY METHOD 11/05/2024 8:57 AM [facility] Rhinovirus/Entero virus Not Detected Not Detected LAB MICROBIOLOGY METHOD 11/05/2024 8:57 AM [facility] Bordetella pertussis Not Detected Not Detected LAB MICROBIOLOGY METHOD 11/05/2024 8:57 AM [facility] Bordetella parapertussis Not Detected Not Detected LAB MICROBIOLOGY METHOD 11/05/2024 8:57 AM [facility] Mycoplasma pneumo by PCR Not Detected Not Detected LAB MICROBIOLOGY METHOD 11/05/2024 8:57 AM [facility] Chlamydia pneumoniae Not Detected Not Detected LAB MICROBIOLOGY METHOD 11/05/2024 8:57 AM [facility] SARS COV-2 Detected(A ) Not Detected LAB MICROBIOLOGY METHOD 11/05/2024 8:57 AM [facility] Swab Nasopharyngeal structure / Unknown Non-blood Collection / Unknown 11/05/2024 6:23 AM EST 11/05/2024 7:01 AM EST [facility] - 11/05/2024 8:57 AM EST Testing was performed using the [employer] Respiratory Pathogen PCR Assay. All results must [...] Sparrow MD LAB MICROBIOLOGY - GENERAL ORDERABLES [facility] [address] [place] [address], * (ABNORMAL) CBC auto differential (11/05/2024 6:21 AM EST) WBC 4.5(L) 4.8 - 10.8 K/mcL LAB HEMETOLOGY METHOD 11/05/2024 7:15 AM [facility] RBC 3.90(L) 4.50 - 5.50 M/mcL LAB HEMETOLOGY METHOD 11/05/2024 7:15 AM [facility] Hemoglobin 11.6(L) 13.5 - 17.5 g/dL LAB HEMETOLOGY METHOD 11/05/2024 7:15 AM [facility] Hematocrit 34.9(L) 42.0 - 54.0 % LAB HEMETOLOGY METHOD 11/05/2024 7:15 AM [facility] MCV 89.0 79.0 - 98.0 FL LAB HEMETOLOGY METHOD 11/05/2024 7:15 AM [facility] MCH 29.6 27.0 - 32.0 pcg LAB HEMETOLOGY METHOD 11/05/2024 7:15 AM [facility] MCHC 33.2 32.0 - 37.0 g/dL LAB HEMETOLOGY METHOD 11/05/2024 7:15 AM [facility] RDW 13.2 11.0 - 15.0 % LAB HEMETOLOGY METHOD 11/05/2024 7:15 AM [facility] Platelets 326 130 - 400 K/mcL LAB HEMETOLOGY METHOD 11/05/2024 7:15 AM [facility] MPV 10.0 7.0 - 11.0 FL LAB HEMETOLOGY METHOD 11/05/2024 7:15 AM [facility] NRBC 0.0 <1.0 % LAB HEMETOLOGY METHOD 11/05/2024 7:15 AM [facility] NRBC Absolute 0.00 <0.10 K/mcL LAB HEMETOLOGY METHOD 11/05/2024 7:15 AM [facility] Neutrophils Relative 48.4 % LAB HEMETOLOGY METHOD 11/05/2024 7:15 AM [facility] Lymphocytes Relative 36.9 % LAB HEMETOLOGY METHOD 11/05/2024 7:15 AM [facility] Monocytes Relative 8.2 % LAB HEMETOLOGY METHOD 11/05/2024 7:15 AM [facility] Eosinophils Relative 5.6 % LAB HEMETOLOGY METHOD 11/05/2024 7:15 AM [facility] Basophils Relative 0.7 % LAB HEMETOLOGY METHOD 11/05/2024 7:15 AM [facility] Immature Granulocytes Relative 0.2 % LAB HEMETOLOGY METHOD 11/05/2024 7:15 AM [facility] Neutrophils Absolute 2.18 1.50 - 7.00 K/mcL LAB HEMETOLOGY METHOD 11/05/2024 7:15 AM EST [facility] Lymphocytes Absolute 1.66 1.00 - 5.00 K/[facility] LAB HEMETOLOGY METHOD 11/05/2024 7:15 AM EST [facility] Monocytes Absolute 0.37 0.20 - 1.00 K/[facility] LAB HEMETOLOGY METHOD 11/05/2024 7:15 AM EST [facility] Eosinophils Absolute 0.25 0.00 - 0.50 K/[facility] LAB HEMETOLOGY METHOD 11/05/2024 7:15 AM [facility] Basophils Absolute 0.03 0.00 - 0.20 K/[facility] LAB HEMETOLOGY METHOD 11/05/2024 7:15 AM [facility] Immature Granulocytes Absolute 0.01 0.00 - 0.03 K/[facility] LAB HEMETOLOGY METHOD 11/05/2024 7:15 AM [facility] Blood Venous blood specimen / Unknown Venipuncture / Unknown 11/05/2024 6:21 AM EST 11/05/2024 7:01 AM EST China Sparrow MD LAB BLOOD ORDERA BLES [facility] [address] [place] [address], * (ABNORMAL) Comprehensive metabolic panel (11/05/2024 6:21 AM EST) Sodium 139 133 - 145 mmol/L LAB CHEMISTRY METHOD 11/05/2024 7:29 AM [facility] Potassium 3.5 3.5 - 5.5 mmol/L LAB CHEMISTRY METHOD 11/05/2024 7:29 AM [facility] Chloride 108 96 - 110 mmol/L LAB CHEMISTRY METHOD 11/05/2024 7:29 AM [facility] CO2 26 21 - 32 mmol/L LAB CHEMISTRY METHOD 11/05/2024 7:29 AM [facility] Anion Gap 5 3 - 11 LAB CHEMISTRY METHOD 11/05/2024 7:29 AM [facility] Glucose 104(H) 70 - 100 mg/dL LAB CHEMISTRY METHOD 11/05/2024 7:29 AM [facility] BUN 20 5 - 25 mg/dL LAB CHEMISTRY METHOD 11/05/2024 7:29 AM [facility] Creatinine 1.02 0.70 - 1.30 mg/dL LAB CHEMISTRY METHOD 11/05/2024 7:29 AM [facility] eGFR 95 >=60 mL/min/1. 73m2 LAB CHEMISTRY METHOD 11/05/2024 7:29 AM [facility] Comment:Calculation based on the??Chronic Kidney Disease Epidemiology Collaboration (CKD-EPI) equation refit??without adjustment for race. BUN/Creatinine Ratio 19.6 LAB CHEMISTRY METHOD 11/05/2024 7:29 AM [facility] Calcium 8.8 8.5 - 10.5 mg/dL LAB CHEMISTRY METHOD 11/05/2024 7:29 AM [facility] AST (SGOT) 19 10 - 42 unit/L LAB CHEMISTRY METHOD 11/05/2024 7:29 AM [facility] ALT (SGPT) 43 10 - 60 unit/L LAB CHEMISTRY METHOD 11/05/2024 7:29 AM [facility] Alkaline Phosphatase 84 42 - 121 unit/L LAB CHEMISTRY METHOD 11/05/2024 7:29 AM [facility] Total Protein 7.4 6.0 - 8.0 g/dL LAB CHEMISTRY METHOD 11/05/2024 7:29 AM [facility] Albumin 4.0 3.2 - 5.0 g/dL LAB CHEMISTRY METHOD 11/05/2024 7:29 AM [facility] Total Bilirubin 0.5 0.0 - 1.4 mg/dL LAB CHEMISTRY METHOD 11/05/2024 7:29 AM EST [facility] Blood Venous blood specimen / Unknown Venipuncture / Unknown 11/05/2024 6:21 AM EST 11/05/2024 7:01 AM EST China pSarrow MD LAB BLOOD ORDERA BLES [facility] [address] [place] [address], * Depression Screening (07/01/2024) [facility] Depression Screening abstracted Historical Provider MD NATHANIEL Saucedo * (ABNORMAL) Lipid panel (12/15/2023) [facility] LDL/HDL Ratio 4 0 - 4 Triglycerides 67 0 - 150 mg/dL Cholesterol 162 0 - 200 mg/dL HDL 39(A) 40 mg/dL LDL Cholesterol 110(A) 0 - 100 mg/dL Blood Venous blood specimen / Unknown Historical Provider LAB BLOOD ORDERAB LES * Hepatitis C Screening (11/30/2023) [facility] Hepatitis C Screening abstracted Historical Provider MD NATHANIEL Saucedo from Last 3 Months or Most Recently Relevant to Health Maintenance Additional Health Concerns Infection Onset Date Last Indicated COVID-19 11/05/2024 11/05/2024 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
== END 2024-11-09 10:12 | disposition home or self-care (01) ==
PROVIDERS: PCP Internal Medicine; Visit Provider Physician Assistant Medical
DX: G24.9 Dystonia, unspecified (principal); R53.83 Other fatigue; G47.9 Sleep disorder, unspecified; R06.83 Snoring
CPT/HCPCS: 99204; G2211

== ENCOUNTER → 2024-11-09 09:02 | Outpatient (BNVA) | payer OTHER, SELFPAY | PROVIDERS: PCP Internal Medicine; Visit Provider Physician Assistant Medical | DX: G24.9 Dystonia, unspecified (principal); R53.83 Other fatigue; G47.9 Sleep disorder, unspecified; R06.83 Snoring; M54.2 Cervicalgia; R63.5 Abnormal weight gain; T50.905A Adverse effect of unspecified drugs, medicaments and biological substances, initial encounter; X58.XXXA Exposure to other specified factors, initial encounter | CPT/HCPCS: 99202 ==

== ENCOUNTER 2025-01-31 10:13 | Outpatient (AMB) | payer OTHER, SELFPAY ==
--- NOTE | 2025-01-31 10:27 | A.OFFVIS_ITS ---
Vital Signs 01/31/25 10:32 Height 5 ft 8 in Weight 186 lb BMI 28.3 Pulse 75 Pulse Source Pulse Oximeter Pulse Oximetry (%) 99 Oxygen Delivery Method Room Air Intake Visit Reasons: Botox (1st) Intake Note: Patient presents for botox injection Allergies doxycycline Allergy (Verified 01/31/25 10:32) Difficulty Breathing tramadol Adverse Reaction (Verified 01/31/25 10:32) Nausea Medication List - Last Reconciled 01/31/25 by Crystal Anthony MD albuterol sulfate 90 mcg/actuation 2 puffs inhalation Q6H PRN benzonatate 100 mg PO BID PRN buprenorphine-naloxone 8-2 mg (Suboxone) film sublingual cholecalciferol (vitamin D3) 50 mcg PO DAILY cyclobenzaprine 10 mg PO TID PRN lidocaine 5% 1 patch topical DAILY omeprazole 40 mg PO BID venlafaxine ER 75 mg PO DAILY HPI Comments Details: 39y/o male 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 Side effects including spread of toxin effect, dysphagia, breathing difficulties , bronchitis etc was discussed in detail and the patient agreed to the procedure.An informed consent was obtained ??? Botulinum toxin type A 200units X 1 -was diluted with 4 cc of normal saline at a concentration of 25 units in 0.5cc saline. Lot number [id number] expiration 01/2027 ??? Muscles injected ??? LeftSplenius - 50 units each ??? left levator 75 units each ??? Left semispinalis 25 units Right splenius 25 units Right Levator 25 units. ??? Total used 200 units [facility] Medical History Subcutaneous mass Surgical History History of gastric surgery H/O wrist surgery History of shoulder surgery Family History Father Diabetes Hypertension Brother Diabetes Hypertension Social History Alcohol intake: never Patient Tobacco Use Status: Never used Tobacco Physical Exam Vital Signs: Last Vital Signs Pulse 75 01/31/25 10:32 Pulse Ox 99 01/31/25 10:32 Oxygen Delivery Method Room Air 01/31/25 10:32 BMI result Body Mass Index 28.3 Const General: cooperative, comfortable and no acute distress Nutritional Appearance: average body habitus Orientation/consciousness: patient oriented x3 HEENT Other: Pain is elicited on Tilt left side >R side : Cervical Dystonia, Splenius Capitis, Scalenes, Levator scapule, are all very tight. Face and sinus: Yes normal facial exam and Yes face symmetric Throat: Yes other ([place] score of 4) Eyes Pupils: Equal, round and reactive pupils present Neck Other: Pain is elicited on Tilt left side >R side : Cervical Dystonia, Splenius Capitis, Scalenes, Levator scapule, are all very tight. ROM limited on EXT/ Flexion/ Rotation L>R. Resp Effort & Inspection: normal respiratory effort and able to speak in complete sentences Neuro General: patient oriented x3 Cranial nerves: Yes CN's II-XII intact bilaterally, Yes Facial sensation intact/muscles of mastication intact, Yes Equal, round and reactive pupils present, Yes Normal accommodation reflex present, Yes Bilaterally intact EOM present, Yes Nystagmus not present, Yes Normal facial strength present and Yes Ability to bilaterally elevate shoulders present Cognition (Neuro): normal cognition Gait exam (Neuro): Normal gait present Motor exam (neuro): 5/5 motor strength present throughout Psych Thought process: Normal thought process present Thought content: Normal thought content present Office Procedures Botulinum toxin Injection 97780 - Dystonia Procedure code (CPT) selection complete Office Meds onabotulinumtoxinA 200 unit solution for injection Performing Provider: Crystal Anthony MD [place] [facility] [place] [facility] Administered by: Crystal Anthony MD on 01/31/25 11:24 Dose Route Admin Location Dispensed Lot Number Expiration Date [facility] Lab Asst 200 unit IM 200 units [id number] ALLERGAN/BOTOX Comments: see hpi Assessment & Plan Assessment & Plan (1) Spasmodic torticollis: Code(s): G24.3 - Spasmodic torticollis Category: Medical Plan Patient tolerated the procedure well He will call with any side effects. Orders: Orders AMB Botulinum toxin Injection Today G24.3 - Spasmodic torticollis Medications: New onabotulinumtoxinA 200 units IM ONCE 1 ea 0RF G24.3 - Spasmodic torticollis Coding Level of Care Code Est Pt Level 1 (62316) Diagnoses Spasmodic torticollis G24.3 CPT Codes Botox Injection - Botox 4: 87564 - Dystonia ([id number])
[2025-01-31 10:32] VITALS: PULSE 75; O2SAT 99; BMI 28.3
--- OUTSIDE RECORDS SUMMARY | 2025-01-31 11:43 | XMS_ITS | Clinical Summary ---
Author Organization 175 [facility] Address [address] [place] [address] Phone Care Team Providers Care Supervisor Wet End Name Role Phone Patricio Asher MD Primary Care Provider Allergies Active Allergy Reactions Criticality Noted Date Comments Doxycycline Nausea And Vomiting 05/28/2021 Latex Other 06/04/2021 Skin irritation Lisinopril Cough 12/07/2024 Tramadol Wheezing 05/28/2021 Medications cholecalcifero l (VITAMIN D-3) 50 mcg (2,000 unit) tablet Take 1 tablet (2,000 Units total) by mouth 1 (one) time each day. 4 Active omeprazole (PriLOSEC) [address] capsule Take 1 capsule (40 mg total) by mouth 2 (two) times a day. 4 Active oxyCODONE (ROXICODONE) 5 mg immediate release tablet Take 1 Tablet by mouth daily as needed for Pain (severe pain). 4 Active dicyclomine (BENTYL) 10 mg capsule TAKE 1 CAPSULE BY MOUTH 3 TIMES DAILY NEEDED (ABDOMINAL PAIN/ SPASM). 270 capsule 4 Active amLODIPine (NORVASC) 2.5 mg tablet Take 1 tablet (2.5 mg total) by mouth 1 (one) time each day. 90 each 1 5 Active venlafaxine XR (EFFEXOR-XR) 75 mg 24 hr capsule Take 1 capsule (75 mg total) by mouth 1 (one) time each day. 90 capsule 1 5 Active buprenorphine- naloxone (SUBOXONE) 8-[address] film [address] 1 film under the tongue 3 (three) times a day for 14 days. After the medication is completely dissolved, take a large sip of water, swish it around teeth and gums, and swallow. Wait at least 1 hour before brushing teeth to avoid damage to your teeth. Max Daily Amount: 3 films 42 each 5 02/01/20 25 Active naproxen (NAPROSYN) 500 mg tablet Take 1 tablet (500 mg total) by mouth 2 (two) times a day with meals for 15 days. 30 tablet 5 02/15/20 25 Active acetaminophen (TYLENOL) 500 mg tablet Take 2 tablets (1,000 mg total) by mouth every 6 (six) hours if needed for mild pain for up to 10 days. 30 tablet 5 02/10/20 25 Active lidocaine 4 % patch Apply 1 patch topically 1 (one) time each day. 30 each 5 03/01/20 25 Active methocarbamoL (ROBAXIN) 750 mg tablet Take 1 tablet (750 mg total) by mouth 4 (four) times a day for 10 days. 20 each 5 02/10/20 25 Active methylPREDNISo lone (MEDROL DOSPAK) 4 mg tablet Take 1 tablet by mouth as directed on the package. 21 tablet 5 02/06/20 25 Active buprenorphine- naloxone (SUBOXONE) 8-[address] 1 film under the tongue 3 (three) times a day for 7 days. After the medication is completely dissolved, take a large sip of water, swish it around teeth and gums, and swallow. Wait at least 1 hour before brushing teeth to avoid damage to your teeth. Max Daily Amount: 3 films 21 each 5 01/04/20 25 Discontinu ed(Reorder ) buprenorphine- naloxone (SUBOXONE) 8-[address] film [address] 1 film under the tongue 3 (three) times a day for 14 days. After the medication is completely dissolved, take a large sip of water, swish it around teeth and gums, and swallow. Wait at least 1 hour before brushing teeth to avoid damage to your teeth. Max Daily Amount: 3 films 42 each 03/25/01/18/20 Discontinu ed(Reorder ) Active Problems Problem Noted Date Diagnosed Date Chronic midline low back pain without sciatica 0 07/01/2024 Irritable bowel syndrome 07/01/2024 Primary hypertension 07/01/2024 Anxiety and depression 10/29/2023 Gastric polyp 10/29/2023 Renal calculi 10/29/2023 Tension headache 10/29/2023 Mild oxycodone-acetaminophen use disorder ([facility] V24, [facility] V28) 06/30/2021 ADHD (attention deficit hyperactivity disorder) 06/04/2021 Gastroesophageal reflux disease without esophagi tis 06/04/2021 Marijuana use 06/04/2021 Overview (08/16/2024): Utox positive 05/28/21 Mood disorder ([facility] V24) 06/04/2021 Tubular adenoma 06/04/2021 Overview (08/16/2024): CN 09/11/20 Substance use disorder 04/25/2021 Overview (08/16/2024): On suboxone Encounters Date Type Department Care Team Description 01/30/2025 11:07 AM EDT - 01/30/2025 4:39 PM EDT Emergency [facility] Emergency [address] [place] [id number] Acute low back pain, unspecified back pain laterality, unspecified whether sciatica present (Primary Dx) Discharge Disposition: Home or Self Care 01/17/2025 6:00 PM EDT [facility] [address] [place] [address] Juni Tran MD Substance use disorder (Primary Dx) 01/03/2025 6:00 PM EDT [facility] [address] [place] [address] Juni Tran MD Substance use disorder (Primary Dx) 12/27/2024 6:00 PM EDT [facility] [address] [place] [address] Juni Tran MD Substance use disorder (Primary Dx) 12/20/2024 5:45 PM EDT [facility] [address] [place] [address] Juni Tran MD Substance use disorder (Primary Dx) 12/13/2024 3:15 PM EST Office [facility] [address] [place], [place] [phone] Juni Tran MD Substance use disorder (Primary Dx); Opiate withdrawal (CMS/HCC V24, CMS/HCC V28) 12/07/2024 8:15 AM EST Office Visit Adult Medicine [address] [phone] Patricio Asher MD Acute non-recurrent maxillary sinusitis (Primary Dx); Primary hypertension; Other chronic pain; Chronic midline low back pain without sciatica; Anxiety and depression; Gastroesophageal reflux disease without esophagitis; Irritable bowel syndrome, unspecified type 11/17/2024 8:49 PM EST - 11/17/2024 11:00 PM [facility] Emergency [address] [place] [address] Abdominal pain, epigastric (Primary Dx); Sensation of swollen throat Discharge Disposition: Home or Self Care 11/05/2024 8:28 AM EST - 11/05/2024 10:00 AM EST [facility] Emergency [address] [place] [address] Chika Calvo MD COVID (Primary Dx); Acute cough Discharge Disposition: Home or Self Care 11/02/2024 Telephone Adult Medicine [address] [phone] Patricio Asher MD from Last 3 Months Immunizations Name Administration [...] COLONOSCOPY; COMMENT: tubular adenoma ESOPHAGOGASTRODUODENOSCOPY 09/11/2020 PROCEDURE: SD ESOPHAGOGASTRODUODENOSCOPY TRANSORAL DIAGNOSTIC; COMMENT: polyp in the cardia OTHER SURGICAL HISTORY 10/23/2017 PROCEDURE: HISTORY OTHER; COMMENT: laparoscopic lysis of single omental band Dr. Benjamin Medical History Medical History Date Comments GERD (gastroesophageal reflux disease) 06/04/2021 DX:GERD (gastroesophageal reflux disease) ADHD (attention deficit hype ractivity disorder) 06/04/2021 DX:ADHD (attention deficit hyperactivity disorder) Marijuana use 06/04/2021 DX:Marijuana use ; COMMENT: Utox positive 05/28/21 Mood disorder (CMS/HCC V24) 06/04/2021 DX:M ood disorder ([facility]) Substance use disorder 04/25/2021 DX:Substa nce use disorder; COMMENT: On suboxone Tubular adenoma 06/04/2021 DX:Tubular adeno ma; COMMENT: CN 09/11/20 Family History Medical History Relation Name Comments Diabetes Brother Coronary artery disease Father Diabetes Father Other cancer Neg Hx Relation Name Status Comments Brother Father Social History Tobacco Use Types Packs/Day Years Used Date Smoking Tobacco: Never Smokeless Tobacco: Never Tobacco Cessation:Counseling Given: Not Answered Alcohol Use Standard Drinks/Week Comments Never 0 (1 standard drink = 0.6 oz pur e alcohol) Housing Instability Answer Date Recorde d Are you worried that in the next 2 months you may not have stable housing? No 12/06/2024 Food Access & Nutrition Answer Date Rec orded Do you have access to a vari ety of food including fruits and vegetables? No 12/06/2024 Access to Healthcare Answer Date Record ed Within the last 3 months, ho w many times did you visit the emergency department for your medical care? 6 12/06/2024 Health Literacy Answer Date Recorded How often do you need to hav e someone help you when you read instructions, pamphlets, or other written material from your doctor or pharmacy? Never 12/06/2024 Caregiver: How often do you need to have someone help you when you read instructions, pamphlets, or other written material from your doctor or pharmacy? Not on file 12/06/2024 Financial Risk Answer Date Recorded How hard is it for you to pa y for the very basics like food, housing, medical care, and air conditioning / heating? Somewhat hard 12/06/2024 Transportation Answer Date Recorded Has the lack of transportati on kept you from meetings, work, or from getting things needed for daily living? No Has the lack of transportati on kept you from medical appointments or from getting medications? No 12/06/2024 Social Isolation Answer Date Recorded How often do you feel lonely or isolated from those around you? Sometimes 12/06/2024 Food Risk Answer Date Recorded Within the past 12 months we worried whether our food would run out before we got money to buy more. Sometimes true 025 Within the past 12 months th e food we bought just didn't last and we didn't have money to get more. Sometimes true 12/06/2024 Dependent Care Answer Date Recorded Do you need help finding or paying for care for your loved ones. For example, children's choir director or elderly care for an older adult? No 12/06/2024 Education Answer Date Recorded Do you think completing more education or training, like finishing a GED, going to college, or learning a trade, would be helpful for you? Yes 12/06/2024 Employment and Income Answer Date Recor ded During the last four weeks, have you been actively looking for work? Yes 12/06/2024 Living Situation Answer Date Recorded What is your living situation? 0 12/06/2024 Sex and Gender Information Value Date Recorded Sex Assigned at Male 11/05/2024 8:54 AM EST Legal Sex Male 2:26 AM EST Gender Identity Male 11/05/2024 8:54 AM EST Sexual Orientation Straight 11/05/2024 8: 54 AM EST Obstetrics History Last Filed Vital Signs Vital Sign Reading Time Taken Comments Blood Pressure 123/85 01/30/2025 11:09 AM EDT Pulse 98 01/30/2025 11:09 AM EDT Temperature 36.5 ??C (97.7 ??F) 01/30/2025 11:09 AM E DT Respiratory Rate 18 01/30/2025 11:09 AM EDT Oxygen Saturation 97% 01/30/2025 11:09 AM EDT Inhaled Oxygen Concentration - - Weight 89.8 kg (198 lb) 01/30/2025 11:36 AM EDT Height 175.3 cm (5' 9 ) 01/30/2025 11:36 AM EDT Body Mass Index 29.24 01/30/2025 11:36 AM EDT Plan of Treatment Upcoming Encounters Date Type Department Care Team (Late st Contact Info) Description 01/31/2025 6:00 PM EDT Office Visit Walk-In Clinic - [address] [phone] Juni Tran MD [address] [place] [phone] 02/02/2025 3:45 PM EDT Office Visit Adult Medicine [address] [phone] Imelda Dodson PA [address] [place] [phone] Health Maintenance Due Date Last Done Comments Hepatitis A Vaccines (1 of 2 - Risk 2-dose series) 2002 Hepatitis B Vaccines (1 of 3 - 19+ 3-dose series) 2002 COVID-19 Vaccine ( - season) 2024 01/09/2023, 02/16/2021 Influenza Vaccine (Season Ended) 2025 06/24/2020, 10/24/2017, 07/21/2014 Social Influencers of Health Screening 12/06/2025 12/06/2024 Depression Screening 12/12/2025 12/12/2024, 07/01/20 Hypertension/CHF/CAD Annual BMP Blood Test 01/30/2026 01/30/2025, 12/13/2024, 11/17/2024, Additional history exists Cholesterol Screening (Lipid Panel) 12/14/2028 12/15/2023 DTaP,Tdap,and Td Vaccines (4 - Td or Tdap) 12/13/2033 12/14/2023, 08/01/2021, 07/19/2011 Pneumococcal Vaccine: Pediatrics (0 to 5 Years) and At-Risk Patients (6 to 64 Years) Aged Out 10/24/2017 No longer eligible based on patient's age to complete this topic HIV Screening Completed 12/13/2024 Hepatitis C Screening Completed 12/13/2024, 024 HIB Vaccines Aged Out No longer eligi [...] patient's age to complete this topic Meningococcal B Vaccine Aged Out No l onger eligible based on patient's age to complete this topic RSV Immunization Patients Under 20 months Aged Out No longer eligible based on patient's age to complete this topic Varicella Vaccines Aged Out No longer eligible based on patient's age to complete this topic Procedures Procedure Name Priority Date/Time Associated Diagnosis Comments MR LUMBAR SPINE WO CONTRAST STAT 01/30/2025 2:17 PM EDT CBC WITH AUTO DIFFERENTIAL STAT 01/30/2025 10:31 AM EDT LIPASE STAT 01/30/2025 10:31 AM EDT COMPREHENSIVE METABOLIC PANEL STAT 01/30/2025 10:31 AM EDT CBC AND DIFFERENTIAL STAT 01/30/2025 10:31 AM EDT POC URINE DRUG SCREEN Routine 01/17/2025 6:25 PM EDT Substance use disorder POC URINE DRUG SCREEN Routine 01/03/2025 6:52 PM EDT Substance use disorder POC URINE DRUG SCREEN Routine 12/27/2024 5:44 PM EDT Substance use disorder POC URINE DRUG SCREEN Routine 12/20/2024 6:18 PM EDT Substance use disorder POC URINE DRUG SCREEN Routine 12/13/2024 5:18 PM EST Substance use disorder CBC WITH AUTO DIFFERENTIAL Routine 12/13/2024 4:34 PM EST Substance use disorder CBC AND DIFFERENTIAL Routine 12/13/2024 4:34 PM EST Substance use disorder COMPREHENSIVE METABOLIC PANEL Routine 12/13/2024 4:34 PM EST Substance use disorder TREPONEMA PALLIDUM ANTIBODY WITH REFLEX TO RPR AND PARTICLE AGGLUTINATION Routine 12/13/2024 4:34 PM EST Substance use disorder HEPATITIS PANEL, ACUTE WITH REFLEX TO CONFIRMATION Routine 12/13/2024 4:34 PM EST Substance use disorder HIV 1, 2 ANTIBODY, P24 ANTIGEN WITH REFLEX TO DIFFERENTIATION Routine 12/13/2024 4:34 PM EST Substance use disorder CT ABDOMEN PELVIS W CONTRAST STAT 11/17/2024 9:56 PM EST CBC WITH AUTO DIFFERENTIAL STAT 11/17/2024 6:08 PM EST LIPASE STAT 11/17/2024 6:08 PM EST COMPREHENSIVE METABOLIC PANEL STAT 11/17/2024 6:08 PM EST CBC AND DIFFERENTIAL STAT 11/17/2024 6:08 PM EST XR CHEST 2 VIEWS STAT 11/05/2024 6:31 AM EST RESPIRATORY VIRUS PANEL MOLECULAR STUDY STAT 11/05/2024 6:23 AM EST CBC WITH AUTO DIFFERENTIAL STAT 11/05/2024 6:21 AM EST COMPREHENSIVE METABOLIC PANEL STAT 11/05/2024 6:21 AM EST CBC AND DIFFERENTIAL STAT 11/05/2024 6:21 AM EST HM DEPRESSION SCREENING Routine 07/01/2024 LIPID PANEL Routine 12/15/2023 from Last 3 Months or Most Recently Relevant to Health Maintenance Results * MR Lumbar Spine wo Contrast (01/30/2025 2:17 PM EDT) Anatomical Region Laterality Modality L-spine, Spine Magnetic Resonan ce 01/30/2025 1:55 PM EDT Impressions 01/30/2025 1:59 PM EDT Mild degenerative changes of the lumbar spine. ??No high-grade spinal or foraminal stenosis. -------- FINAL REPORT -------- Dictated By: Jose Perez Dictated Date: 01/30/2025 13:55 ET Assigned Physician: Jose Perez Reviewed and Electronically Signed By: Jose Perez Signed Date: 01/30/2025 13:59 ET Workstation ID: [id number] Transcribed By: Self Edit Transcribed Date: 01/30/2025 13:55 ET Narrative 01/30/2025 1:59 PM EDT PROCEDURE: MRI of the lumbar spine without contrast. TECHNIQUE: Multiplanar multisequence MRI of the lumbar spine without intravenous contrast administration. HISTORY: Low back pain, cauda equina syndrome suspected COMPARISON: CT abdomen and pelvis 11/17/2024. FINDINGS: The paraspinous soft tissues appear normal. No concerning marrow signal. ??Small superior endplate Schmorl's node at L2. ??No compression deformity. Normal position of the conus at L1. Lumbar disc levels: L1-2: Loss of the normal T2 hyperintensity of the intervertebral disc. ??Small anterior endplate osteophytes. ??Mild endplate irregularity with a small superior endplate Schmorl's node at L2. ??Mild disc space height loss. ??There is a small central disc herniation with slight superior extrusion. ??No spinal or foraminal stenosis. L2-3: No significant disc or facet abnormality. ??No spinal or foraminal stenosis. L3-4: No significant disc or facet abnormality. ??No spinal or foraminal stenosis. L4-5: No significant disc or facet abnormality. ??No spinal or foraminal stenosis. L5-S1: Small broad-based central protrusion. ??Mild bilateral facet arthropathy, left greater than right. ??No spinal or foraminal stenosis. Procedure Note Jose Perez MD - 01/30/2025 PROCEDURE: MRI of the lumbar spine without contrast. TECHNIQUE: Multiplanar multisequence MRI of the lumbar spine withoutintravenous contrast administration. HISTORY: Low back pain, cauda equina syndrome suspected COMPARISON: CT abdomen and pelvis 11/17/2024. FINDINGS: The paraspinous soft tissues appear normal. No concerning marrow signal. Small superior endplate Schmorl's node atL2. No compression deformity. Normal position of the conus at L1. Lumbar disc levels: L1-2: Loss of the normal T2 hyperintensity of the intervertebral disc.Small anterior endplate osteophytes. Mild endplate irregularity with asmall superior endplate Schmorl's node at L2. Mild disc space heightloss. There is a small central disc herniation with slight superiorextrusion. No spinal or foraminal stenosis. L2-3: No significant disc or facet abnormality. No spinal or foraminalstenosis. L3-4: No significant disc or facet abnormality. No spinal or foraminalstenosis. L4-5: No significant disc or facet abnormality. No spinal or foraminalstenosis. L5-S1: Small broad-based central protrusion. Mild bilateral facetarthropathy, left greater than right. No spinal or foraminal stenosis. IMPRESSION: Mild degenerative changes of the lumbar spine. No high-grade spinal orforaminal stenosis. -------- FINAL REPORT -------- Dictated By: Jose Perez Dictated Date: 01/30/2025 13:55 ET Assigned Physician: Jose Perez Reviewed and Electronically Signed By: Jose Perez Signed Date: 01/30/2025 13:59 ET Workstation ID: [id number] Transcribed By: Self Edit Transcribed Date: 01/30/2025 13:55 ET us Sharri ALBERTO IMG MRI PROCEDURES Final R esult * (ABNORMAL) CBC auto differential (01/30/2025 10:31 AM EDT) Only the most recent of4 resultswithin the time period is included. [facility] WBC 4.8 4.8 - 10.8 K/mcL LAB HEMETOLOGY METHOD 01/30/2025 10:54 AM [facility] RBC 3.90(L) 4.50 - 5.50 M/mcL LAB HEMETOLOGY METHOD 01/30/2025 10:54 AM [facility] Hemoglobin 11.5(L) 13.5 - 17.5 g/dL LAB HEMETOLOGY METHOD 01/30/2025 10:54 AM [facility] Hematocrit 34.8(L) 42.0 - 54.0 % LAB HEMETOLOGY METHOD 01/30/2025 10:54 AM [facility] MCV 89.7 79.0 - 98.0 FL LAB HEMETOLOGY METHOD 01/30/2025 10:54 AM [facility] MCH 29.6 27.0 - 32.0 pcg LAB HEMETOLOGY METHOD 01/30/2025 10:54 AM [facility] MCHC 33.0 32.0 - 37.0 g/dL LAB HEMETOLOGY METHOD 01/30/2025 10:54 AM [facility] RDW 13.8 11.0 - 15.0 % LAB HEMETOLOGY METHOD 01/30/2025 10:54 AM [facility] Platelets 285 130 - 400 K/mcL LAB HEMETOLOGY METHOD 01/30/2025 10:54 AM [facility] MPV 9.9 7.0 - 11.0 FL LAB HEMETOLOGY METHOD 01/30/2025 10:54 AM [facility] NRBC 0.0 <1.0 % LAB HEMETOLOGY METHOD 01/30/2025 10:54 AM [facility] NRBC Absolute 0.00 <0.10 K/[facility] LAB HEMETOLOGY METHOD 01/30/2025 10:54 AM [facility] Neutrophils Relative 58.8 % LAB HEMETOLOGY METHOD 01/30/2025 10:54 AM [facility] Lymphocytes Relative 25.5 % LAB HEMETOLOGY METHOD 01/30/2025 10:54 AM [facility] Monocytes Relative 8.1 % LAB HEMETOLOGY METHOD 01/30/2025 10:54 AM [facility] Eosinophils Relative 6.4 % LAB HEMETOLOGY METHOD 01/30/2025 10:54 AM [facility] Basophils Relative 1.0 % LAB HEMETOLOGY METHOD 01/30/2025 10:54 AM [facility] Immature Granulocytes Relative 0.2 % LAB HEMETOLOGY METHOD 01/30/2025 10:54 AM [facility] Neutrophils Absolute 2.84 1.50 - 7.00 K/[facility] LAB HEMETOLOGY METHOD 01/30/2025 10:54 AM [facility] Lymphocytes Absolute 1.23 1.00 - 5.00 K/[facility] LAB HEMETOLOGY METHOD 01/30/2025 10:54 AM [facility] Monocytes Absolute 0.39 0.20 - 1.00 K/mcL LAB HEMETOLOGY METHOD 01/30/2025 10:54 AM [facility] Eosinophils Absolute 0.31 0.00 - 0.50 K/[facility] LAB HEMETOLOGY METHOD 01/30/2025 10:54 AM EDT [facility] Basophils Absolute 0.05 0.00 - 0.20 K/[facility] LAB HEMETOLOGY METHOD 01/30/2025 10:54 AM EDT [facility] Immature Granulocytes Absolute 0.01 0.00 - 0.03 K/[facility] LAB HEMETOLOGY METHOD 01/30/2025 10:54 AM EDT [facility] Blood Venous blood specimen / Unknown Venipuncture / Unknown 01/30/2025 10:31 AM EDT 01/30/2025 10:40 AM EDT us Milton Stephens MD LAB BLOOD ORDERABLES Final Resu lt Performing Organization Address [facility]/ZIP Co de Phone Number [facility] [address] [place] [address], [place] [phone] * Lipase (01/30/2025 10:31 AM EDT) Only the most recent of2 resultswithin the time period is included. Lipase 74 13 - 75 unit/L LAB CHEMISTRY METHOD 01/30/2025 11:13 AM EDT [facility] Blood Venous blood specimen / Unknown Venipuncture / Unknown 01/30/2025 10:31 AM EDT 01/30/2025 10:40 AM EDT us Milton Stephens MD LAB BLOOD ORDERABLES Final Resu lt Performing Organization Address City/[facility]/ZIP Co de Phone Number [facility] [address] [place] [address], [place] [phone] * (ABNORMAL) Comprehensive metabolic panel (01/30/2025 10:31 AM EDT) Only the most recent of4 resultswithin the time period is included. Sodium 141 133 - 145 mmol/L LAB CHEMISTRY METHOD 01/30/2025 11:18 AM [facility] Potassium 4.3 3.5 - 5.5 mmol/L LAB CHEMISTRY METHOD 01/30/2025 11:18 AM [facility] Chloride 106 96 - 110 mmol/L LAB CHEMISTRY METHOD 01/30/2025 11:18 AM [facility] CO2 28 21 - 32 mmol/L LAB CHEMISTRY METHOD 01/30/2025 11:18 AM [facility] Anion Gap 7 3 - 11 LAB CHEMISTRY METHOD 01/30/2025 11:18 AM [facility] Glucose 143(H) 70 - 100 mg/dL LAB CHEMISTRY METHOD 01/30/2025 11:18 AM [facility] BUN 18 5 - 25 mg/dL LAB CHEMISTRY METHOD 01/30/2025 11:18 AM [facility] Creatinine 0.89 0.70 - 1.30 mg/dL LAB CHEMISTRY METHOD 01/30/2025 11:18 AM [facility] eGFR 110 >=60 mL/min/1. 73m2 LAB CHEMISTRY METHOD 01/30/2025 11:18 AM [facility] Comment:Calculation based on the??Chronic Kidney Disease Epidemiology Collaboration (CKD-EPI) equation refit??without adjustment for race. BUN/Creatinine Ratio 20.2 LAB CHEMISTRY METHOD 01/30/2025 11:18 AM [facility] Calcium 8.9 8.5 - 10.5 mg/dL LAB CHEMISTRY METHOD 01/30/2025 11:18 AM [facility] AST (SGOT) 28 10 - 42 unit/L LAB CHEMISTRY METHOD 01/30/2025 11:18 AM [facility] ALT (SGPT) 39 10 - 60 unit/L LAB CHEMISTRY METHOD 01/30/2025 11:18 AM [facility] Alkaline Phosphatase 86 42 - 121 unit/L LAB CHEMISTRY METHOD 01/30/2025 11:18 AM EDT [facility] Total Protein 7.4 6.0 - 8.0 g/dL LAB CHEMISTRY METHOD 01/30/2025 11:18 AM EDT [facility] Albumin 3.9 3.2 - 5.0 g/dL LAB CHEMISTRY METHOD 01/30/2025 11:18 AM EDT [facility] Total Bilirubin 0.3 0.0 - 1.4 mg/dL LAB CHEMISTRY METHOD 01/30/2025 11:18 AM EDT [facility] Blood Venous blood specimen / Unknown Venipuncture / Unknown 01/30/2025 10:31 AM EDT 01/30/2025 10:40 AM EDT Milton Stephens MD LAB BLOOD ORDERABLES Final Resu lt [facility] [address] [place] [address], * (ABNORMAL) POC Urine Drug Screen (01/17/2025 6:25 PM EDT) Only the most recent of5 resultswithin the time period is included. [facility] Amphetamine Screen, Ur POC Negative Negative Barbituates, Ur POC Negative Negative Benzodiazepines, Ur POC Negative Negative Buprenorphine, Ur POC Positive(A) Negative Cocaine, Ur POC Negative Negative MDMA Ur POC Negative Negative Methamphetamine Screen, Ur POC Negative Negative Methadone, Ur POC Negative Negative Opiate Scrn, Ur POC Negative Negative Oxycodone Scrn, Ur POC Negative Negative PCP, Ur POC Negative Negative THC, Ur POC Negative Negative Temperature, Ur POC 96 Urine Urine specimen obtained by clean catch procedure / Unknown 01/17/2025 6:25 PM EDT Juni Tran MD POINT OF CARE TEST ENTER/EDIT OR DERABLES Final Result * HIV 1,2 antibody, p24 antigen with reflex to differentiation (12/13/2024 4:34 PM EST) HIV Combo AB/AG Negative Negative LAB CHEMISTRY METHOD 12/13/2024 7:58 PM EST [facility] Blood Venous blood specimen / Unknown Venipuncture / Unknown 12/13/2024 4:34 PM EST 12/13/2024 4:34 PM EST Narrative [facility] - 12/13/2024 7:58 PM EST This assay is a 4th generation assay allowing for earlier detection of HIV infection by detecting the presence of the HIV-1 p24 antigen as well as the traditional antibodies to HIV type 1 (including group O) and type 2. ??Use of a 4th generation assay is the current CDC recommendation for HIV screening. us Juni Tran MD LAB BLOOD ORDERABLES Final Resul t Performing Organization Address City/[facility]/ZIP Co de Phone Number [facility] [address] [place] [address], [place] [phone] * Treponema pallidum antibody with reflex to RPR and particle agglutination (12/13/2024 4:34 PM EST) [facility] T. Pallidum Antibodies Negative Negative LAB CHEMISTRY METHOD 12/13/2024 7:29 PM EST [facility] Blood Venous blood specimen / Unknown Venipuncture / Unknown 12/13/2024 4:34 PM EST 12/13/2024 4:34 PM EST us Juni Tran MD LAB BLOOD ORDERABLES Final Resul t [facility] [address] [place] [address], [place] [phone] * Hepatitis panel, acute with reflex to confirmation (12/13/2024 4:34 PM EST) [facility] Hepatitis B Surface Ag Negative Negative LAB CHEMISTRY METHOD 12/13/2024 8:05 PM EST [facility] Hepatitis A Antibody IgM Negative Negative LAB CHEMISTRY METHOD 12/13/2024 8:05 PM EST [facility] Hep B Core IgM Negative Negative LAB CHEMISTRY METHOD 12/13/2024 8:05 PM EST [facility] Hepatitis C Antibody Negative Negative LAB CHEMISTRY METHOD 12/13/2024 8:05 PM EST [facility] Blood Venous blood specimen / Unknown Venipuncture / Unknown 12/13/2024 4:34 PM EST 12/13/2024 4:34 PM EST us Juni Tran MD LAB BLOOD ORDERABLES Final Resul t [facility] [address] [place] [address], * CT Abdomen Pelvis w Contrast (11/17/2024 9:56 PM EST) Anatomical Region Laterality Modality Body Computed Tomogra phy 11/17/2024 10:1 5 PM EST Impressions 11/17/2024 10:15 PM EST Impression: No acute process This document has been electronically signed by: Bennie Barajas MD on 11/17/2024 22:15:44 Narrative 11/17/2024 10:15 PM EST INDICATION: Epigastric pain CT abdomen and pelvis with contrast Comparison: None Findings: Lung bases clear. No acute bony abnormalities. Liver and spleen within normal limits. Pancreas and adrenal glands unremarkable. Gallbladder is within normal limits. Right renal cyst and punctate nonobstructing stones. No left renal or bilateral ureteral stone. No bilateral hydronephrosis. Abdominal aorta is normal in caliber. No free fluid or adenopathy in the pelvis. No diverticulitis. Appendix unremarkable. Procedure Note Bennie Barajas MD - 11/17/2024 INDICATION: Epigastric pain CT abdomen and pelvis with contrast Comparison: None Findings: Lung bases clear. No acute bony abnormalities. Liver and spleen within normal limits. Pancreas and adrenal glands unremarkable. Gallbladder is within normal limits. Right renal cyst and punctate nonobstructing stones. No left renal or bilateral ureteral stone. No bilateral hydronephrosis. Abdominal aorta is normal in caliber. No free fluid or adenopathy in the pelvis. No diverticulitis. Appendix unremarkable. IMPRESSION: Impression: No acute process This document has been electronically signed by: Bennie Barajas MD on 11/17/2024 22:15:[address] PROCEDURES Final Result * XR Chest 2 Views (11/05/2024 6:31 AM EST) Anatomical Region Laterality Modality Body Radiographic Misty ging 11/05/2024 7:53 AM EST Impressions 11/05/2024 7:54 AM EST Impression: Normal chest. [id number] -------- FINAL REPORT -------- Dictated By: Elaine Echols Dictated Date: 11/05/2024 07:53 ET Assigned Physician: Elaine Echols Reviewed and Electronically Signed By: Elaine Echols Signed Date: 11/05/2024 07:54 ET Workstation ID: [id number] Transcribed By: Self Edit Transcribed Date: 11/05/2024 [...] tissues are unremarkable. IMPRESSION: Impression: Normal chest. [id number] -------- FINAL REPORT -------- Dictated By: Elaine Echols Dictated Date: 11/05/2024 07:53 ET Assigned Physician: Elaine Echols Reviewed and Electronically Signed By: Elaine Echols Signed Date: 11/05/2024 07:54 ET Workstation ID: [id number] Transcribed By: Self Edit Transcribed Date: 11/05/2024 07:53 ET China Sparrow MD IMG XR PROCEDURES Final Result * (ABNORMAL) Respiratory virus panel molecular study (11/05/2024 6:23 AM EST) Adenovirus Detection by PCR Not Detected Not Detected LAB MICROBIOLOGY METHOD 11/05/2024 8:57 AM [facility] Influenza A PCR Not Detected Not Detected LAB MICROBIOLOGY METHOD 11/05/2024 8:57 AM [facility] Influenza B PCR Not Detected Not Detected LAB MICROBIOLOGY METHOD 11/05/2024 8:57 AM EST [facility] Coronavirus 229E Not Detected Not Detected LAB MICROBIOLOGY METHOD 11/05/2024 8:57 AM [facility] Coronavirus HKU1 Not Detected Not Detected LAB MICROBIOLOGY METHOD 11/05/2024 8:57 AM [facility] Coronavirus OC43 Not Detected Not Detected LAB MICROBIOLOGY METHOD 11/05/2024 8:57 AM [facility] Coronavirus NL63 Not Detected Not Detected LAB MICROBIOLOGY METHOD 11/05/2024 8:57 AM [facility] Parainfluenza Virus 1 Not Detected Not Detected LAB MICROBIOLOGY METHOD 11/05/2024 8:57 AM [facility] Parainfluenza Virus 2 Not Detected Not Detected LAB MICROBIOLOGY METHOD 11/05/2024 8:57 AM [facility] Parainfluenza Virus 3 Not Detected Not Detected LAB MICROBIOLOGY METHOD 11/05/2024 8:57 AM [facility] Parainfluenza Virus 4 Not Detected Not Detected LAB MICROBIOLOGY METHOD 11/05/2024 8:57 AM [facility] RSV PCR Not Detected Not Detected LAB MICROBIOLOGY METHOD 11/05/2024 8:57 AM [facility] Human Metapneumovirus A and B Not Detected Not Detected LAB MICROBIOLOGY METHOD 11/05/2024 8:57 AM EST [facility] Rhinovirus/Entero virus Not Detected Not Detected LAB MICROBIOLOGY METHOD 11/05/2024 8:57 AM EST [facility] Bordetella pertussis Not Detected Not Detected LAB MICROBIOLOGY METHOD 11/05/2024 8:57 AM EST [facility] Bordetella parapertussis Not Detected Not Detected LAB MICROBIOLOGY METHOD 11/05/2024 8:57 AM EST [facility] Mycoplasma pneumo by PCR Not Detected Not Detected LAB MICROBIOLOGY METHOD 11/05/2024 8:57 AM EST [facility] Chlamydia pneumoniae Not Detected Not Detected LAB MICROBIOLOGY METHOD 11/05/2024 8:57 AM [facility] SARS COV-2 Detected(A ) Not Detected LAB MICROBIOLOGY METHOD 11/05/2024 8:57 AM [facility] Swab Nasopharyngeal structure / Unknown Non-blood Collection / Unknown 11/05/2024 6:23 AM EST 11/05/2024 7:01 AM EST [facility] - 11/05/2024 8:57 AM EST Testing was performed using the [employer] Mobile Respiratory Pathogen PCR Assay. All results must [...] detection. China Sparrow MD LAB MICROBIOLOGY - GENER AL ORDERABLES Final Result [facility] [address] [place] [address], * Depression Screening (07/01/2024) [facility] Depression Screening abstracted [facility] Provider HEALTH MAINTENANCE Final Result * (ABNORMAL) Lipid panel (12/15/2023) LDL/HDL Ratio 4 0 - 4 Triglycerides 67 0 - 150 mg/dL Cholesterol 162 0 - 200 mg/dL HDL 39(A) >=40 mg/dL LDL Cholesterol 110(A) 0 - 100 mg/dL Blood Venous blood specimen / Unknown us Historical Provider LAB BLOOD ORDERABLES Arlette l Result from Last 3 Months or Most Recently Relevant to Health Maintenance Insurance [facility] [employer] Care Teams Supervisor Wet End Relationship Specialty Start Date End Date Patricio Asher MD [address] [place] [id number] PCP - General 10/21/23
--- OUTSIDE RECORDS SUMMARY | 2025-01-31 11:43 | XMS_ITS | Encounter Summary ---
Author Organization [facility] Address [address] [place] [address] Care Team Providers Care Client Relations Representative Name Role Phone Patricio Asher MD Primary Care Provider [phone] Reason for Visit * Reason Comments Back Pain Went to bend over an d hurt back. Hx of disc issues. Encounter Details Date Type Department Care Team (Late st Contact Info) Description 01/30/2025 11:07 AM EDT - 01/30/2025 4:39 PM EDT Emergency [facility] Emergency [address] [place] [address] Acute low back pain, unspecified back pain laterality, unspecified whether sciatica present (Primary Dx) Discharge Disposition: Home or Self Care Social [...] care for your loved ones. For example, director child abuse therapy or elderly care for an older adult? [...] Orientation Straight 11/05/2024 8: 54 AM EST documented as of this encounter Last Filed [...] Mass Index 29.24 01/30/2025 11:36 AM EDT documented in this encounter Discharge Instructions * Discharge Instructions* REMY Cruz - 01/30/2025 4:15 PM EDT You were seen in the ER today for low back pain. We did do an MRI which does not show any acute concerns for cauda equina syndrome. Lumbar disc levels: L1-2: Loss of the normal T2 hyperintensity of the intervertebral disc. Small anterior endplate osteophytes. Mild endplate irregularity with a small superior endplate Schmorl's node at L2. Mild disc space height loss. There is a small central disc herniation with slight superior extrusion. No spinalor foraminal stenosis. L2-3: No significant disc or facet abnormality. No spinal or foraminal stenosis. L3-4: No significant disc or facet abnormality. No spinal or foraminal stenosis. L4-5: No significant disc or facet abnormality. No spinal or foraminal stenosis. L5-S1: Small broad-based central protrusion. Mild bilateral facet arthropathy, left greater than right. No spinal or foraminal stenosis. IMPRESSION: Mild degenerative changes of the lumbar spine. No high-grade spinal or foraminal stenosis. You may start your steroid course tomorrow morning. Please be aware this can elevate your blood sugar. Please follow the packaging as the dosage may change each day. I will also send a muscle relaxerto your pharmacy. Please be aware this can make you very drowsy. Please do not take before you haveto operate heavy machinery, going to work, please do not take with other relaxing/sedative medications or with alcohol. You may take tylenol for your pain, 1000mg every 8 hours. Please return to the ER immediately if you experience loss of bowel or bladder function, numbness or tingling of your lower extremities, or weakness in your lower extremities. I recommend drinking plenty of water to stay hydrated. You may also try gentle stretches, massage therapy, ice or heat. Please follow-up with your PCP regarding this issue as it may require physical therapy. * Attachments The following attachments cannot be sent through Care Everywhere. * Low Back Pain: Exercises (Georgian) documented in this encounter Medications at Time of Discharge acetaminophen (TYLENOL) 500 mg tablet Take 2 tablets (1,000 mg total) by mouth every 6 (six) hours if needed for mild pain for up to 10 days. 30 tablet 01/30/2025 5 amLODIPine (NORVASC) 2.5 mg tablet Take 1 tablet (2.5 mg total) by mouth 1 (one) time each day. 90 each 1 12/07/2024 buprenorphine-na loxone (SUBOXONE) 8-2 mg per SL film Place 1 film under the tongue 3 (three) times a day for 14 days. After the medication is completely dissolved, take a large sip of water, swish it around teeth and gums, and swallow. Wait at least 1 hour before brushing teeth to avoid damage to your teeth. Max Daily Amount: 3 films 42 each 01/17/2025 5 cholecalciferol (VITAMIN D-3) 50 mcg (2,000 unit) tablet Take 1 tablet (2,000 Units total) by mouth 1 (one) time each day. 07/01/2024 dicyclomine (BENTYL) 10 mg capsule TAKE 1 CAPSULE BY MOUTH 3 TIMES DAILY NEEDED (ABDOMINAL PAIN/ SPASM). 270 capsule 09/23/2024 lidocaine 4 % patch Apply 1 patch topically 1 (one) time each day. 30 each 01/30/2025 5 methocarbamoL (ROBAXIN) 750 mg tablet Take 1 tablet (750 mg total) by mouth 4 (four) times a day for 10 days. 20 each 01/30/2025 5 methylPREDNISolo ne (MEDROL DOSPAK) 4 mg tablet Take 1 tablet by mouth as directed on the package. 21 tablet 01/30/2025 5 naproxen (NAPROSYN) 500 mg tablet Take 1 tablet (500 mg total) by mouth 2 (two) times a day with meals for 15 days. 30 tablet 01/30/2025 5 omeprazole (PriLOSEC) [address] capsule Take [...] (one) time each day. 90 capsule 1 12/07/2024 documented as of this encounter Ordered Prescriptions Prescription Sig Dispense Quantity Refills Last Filled Start Date End Date methylPREDNISolone (MEDROL DOSPAK) 4 mg tablet Take 1 tablet by mouth as directed on the package. 21 tablet 01/30/2025 5 methocarbamoL (ROBAXIN) 750 mg tablet Take 1 tablet (750 mg total) by mouth 4 (four) times a day for 10 days. 20 each 01/30/2025 5 lidocaine 4 % patch Apply 1 patch topically 1 (one) time each day. 30 each 01/30/2025 5 acetaminophen (TYLENOL) 500 mg tablet Take 2 tablets (1,000 mg total) by mouth every 6 (six) hours if needed for mild pain for up to 10 days. 30 tablet 01/30/2025 5 naproxen (NAPROSYN) 500 mg tablet Take 1 tablet (500 mg total) by mouth 2 (two) times a day with meals for 15 days. 30 tablet 01/30/2025 5 documented in this encounter Discharge Disposition Disposition Code Departure Means Destination Comment s Home or Self Care documented in this encounter Progress Notes * Rose Quiroz RN - 01/30/2025 10:24 AM EDT PT reports sudden onset low back pain a few days ago, radiating down his legs. PT states he feels as though he is stooling more often and is having lower quad abd pain. PT also states difficulty urinating. PT states he feels the pain is radiating from his back around with some dizziness as well. documented in this encounter Plan of Treatment Upcoming Encounters Date Type Department Care Team (Late st Contact Info) Description 01/31/2025 6:00 PM EDT Office Visit Walk-In Clinic - [address] [phone] Juni Tran MD [address] [place] [address] 02/02/2025 3:45 PM EDT Office Visit Adult Medicine [address] [address] Imelda Dodson PA [address] [place] [phone] documented as of this encounter Procedures Procedure Name Priority Date/Time Associated Diagnosis Comments MR LUMBAR SPINE WO CONTRAST STAT 01/30/2025 2:17 PM EDT CBC WITH AUTO DIFFERENTIAL STAT 01/30/2025 10:31 AM EDT CBC AND DIFFERENTIAL STAT 01/30/2025 10:31 AM EDT LIPASE STAT 01/30/2025 10:31 AM EDT COMPREHENSIVE METABOLIC PANEL STAT 01/30/2025 10:31 AM EDT documented in this encounter Results * MR Lumbar Spine wo Contrast [...] Signed Date: 01/30/2025 13:59 ET Workstation ID: [id number] Transcribed By: Self Edit Transcribed Date: 01/30/2025 [...] Signed Date: 01/30/2025 13:59 ET Workstation ID: [id number] Transcribed By: Self Edit Transcribed Date: 01/30/2025 13:55 ET Sharri ALBERTO [facility] MRI PROCEDURES Final R esult * (ABNORMAL) CBC auto differential (01/30/2025 10:31 AM EDT) WBC 4.8 4.8 - 10.8 K/[facility] LAB HEMETOLOGY METHOD 01/30/2025 10:54 AM EDT [facility] RBC 3.90(L) 4.50 - 5.50 M/[facility] LAB HEMETOLOGY METHOD 01/30/2025 10:54 AM EDT [facility] Hemoglobin 11.5(L) 13.5 - 17.5 g/dL LAB HEMETOLOGY METHOD 01/30/2025 10:54 AM [facility] Hematocrit 34.8(L) 42.0 - 54.0 % LAB HEMETOLOGY METHOD 01/30/2025 10:54 AM [facility] MCV 89.7 79.0 - 98.0 FL LAB HEMETOLOGY METHOD 01/30/2025 10:54 AM [facility] MCH 29.6 27.0 - 32.0 pcg LAB HEMETOLOGY METHOD 01/30/2025 10:54 AM [facility] MCHC 33.0 32.0 - 37.0 g/dL LAB HEMETOLOGY METHOD 01/30/2025 10:54 AM [facility] RDW 13.8 11.0 - 15.0 % LAB HEMETOLOGY METHOD 01/30/2025 10:54 AM [facility] Platelets 285 130 - 400 K/mcL LAB HEMETOLOGY METHOD 01/30/2025 10:54 AM [facility] MPV 9.9 7.0 - 11.0 FL LAB HEMETOLOGY METHOD 01/30/2025 10:54 AM [facility] NRBC 0.0 <1.0 % LAB HEMETOLOGY METHOD 01/30/2025 10:54 AM [facility] NRBC Absolute 0.00 <0.10 K/mcL LAB HEMETOLOGY METHOD 01/30/2025 10:54 AM [facility] Neutrophils Relative 58.8 % LAB HEMETOLOGY METHOD 01/30/2025 10:54 AM [facility] Lymphocytes Relative 25.5 % LAB HEMETOLOGY METHOD 01/30/2025 10:54 AM [facility] Monocytes Relative 8.1 % LAB HEMETOLOGY METHOD 01/30/2025 10:54 AM EDT [facility] Eosinophils Relative 6.4 % LAB HEMETOLOGY METHOD 01/30/2025 10:54 AM EDT [facility] Basophils Relative 1.0 % LAB HEMETOLOGY METHOD 01/30/2025 10:54 AM [facility] Immature Granulocytes Relative 0.2 % LAB HEMETOLOGY METHOD 01/30/2025 10:54 AM EDT [facility] Neutrophils Absolute 2.84 1.50 - 7.00 K/mcL LAB HEMETOLOGY METHOD 01/30/2025 10:54 AM EDT [facility] Lymphocytes Absolute 1.23 1.00 - 5.00 K/mcL LAB HEMETOLOGY METHOD 01/30/2025 10:54 AM [facility] Monocytes Absolute 0.39 0.20 - 1.00 K/mcL LAB HEMETOLOGY METHOD 01/30/2025 10:54 AM EDT [facility] Eosinophils Absolute 0.31 0.00 - 0.50 K/mcL LAB HEMETOLOGY METHOD 01/30/2025 10:54 AM [facility] Basophils Absolute 0.05 0.00 - 0.20 K/mcL LAB HEMETOLOGY METHOD 01/30/2025 10:54 AM [facility] Immature Granulocytes Absolute 0.01 0.00 - 0.03 K/mcL LAB HEMETOLOGY METHOD 01/30/2025 10:54 AM T [facility] Blood Venous blood specimen / Unknown Venipuncture / Unknown 01/30/2025 10:31 AM EDT 01/30/2025 10:40 AM EDT us Milton Stephens MD LAB BLOOD ORDERABLES Final Resu lt [facility] [address] [place] [address], * Lipase (01/30/2025 10:31 AM EDT) Lipase 74 13 - 75 unit/L LAB CHEMISTRY METHOD 01/30/2025 11:13 AM [facility] Blood Venous blood specimen / Unknown Venipuncture / Unknown 01/30/2025 10:31 AM EDT 01/30/2025 10:40 AM EDT Milton Stephens MD LAB BLOOD ORDERABLES Final Resu lt [facility] [address] [place] [address], * (ABNORMAL) Comprehensive metabolic panel (01/30/2025 10:31 AM EDT) Pathologist [facility] Sodium 141 133 - 145 mmol/L LAB CHEMISTRY METHOD 01/30/2025 11:18 AM [facility] Potassium 4.3 3.5 - 5.5 mmol/L LAB CHEMISTRY METHOD 01/30/2025 11:18 AM [facility] Chloride 106 96 - 110 mmol/L LAB CHEMISTRY METHOD 01/30/2025 11:18 AM [facility] CO2 28 21 - 32 mmol/L LAB CHEMISTRY METHOD 01/30/2025 11:18 AM [facility] Anion Gap 7 3 - 11 LAB CHEMISTRY METHOD 01/30/2025 11:18 AM [facility] Glucose 143(H) 70 - 100 mg/dL LAB CHEMISTRY METHOD 01/30/2025 11:18 AM [facility] BUN 18 5 - 25 mg/dL LAB CHEMISTRY METHOD 01/30/2025 11:18 AM [facility] Creatinine 0.89 0.70 - 1.30 mg/dL LAB CHEMISTRY METHOD 01/30/2025 11:18 AM [facility] eGFR 110 >=60 mL/min/1. 73m2 LAB CHEMISTRY METHOD 01/30/2025 11:18 AM [facility] Comment:Calculation based on the??Chronic Kidney Disease Epidemiology Collaboration (CKD-EPI) equation refit??without adjustment for race. BUN/Creatinine Ratio 20.2 LAB CHEMISTRY METHOD 01/30/2025 11:18 AM [facility] Calcium 8.9 8.5 - 10.5 mg/dL LAB CHEMISTRY METHOD 01/30/2025 11:18 AM [facility] AST (SGOT) 28 10 - 42 unit/L LAB CHEMISTRY METHOD 01/30/2025 11:18 AM [facility] ALT (SGPT) 39 10 - 60 unit/L LAB CHEMISTRY METHOD 01/30/2025 11:18 AM [facility] Alkaline Phosphatase 86 42 - 121 unit/L LAB CHEMISTRY METHOD 01/30/2025 11:18 AM [facility] Total Protein 7.4 6.0 - 8.0 g/dL LAB CHEMISTRY METHOD 01/30/2025 11:18 AM [facility] Albumin 3.9 3.2 - 5.0 g/dL LAB CHEMISTRY METHOD 01/30/2025 11:18 AM [facility] Total Bilirubin 0.3 0.0 - 1.4 mg/dL LAB CHEMISTRY METHOD 01/30/2025 11:18 AM [facility] Blood Venous blood specimen / Unknown Venipuncture / Unknown 01/30/2025 10:31 AM EDT 01/30/2025 10:40 AM EDT us Milton Stephens MD LAB BLOOD ORDERABLES Final Resu lt [facility] [address] [place] [address], [place] [phone] documented in this encounter Visit Diagnoses Diagnosis Acute low back pain, unspecified back pain laterality, unspecified whether sciatica present- Primary documented in this encounter Administered Medications Inactive Administered Medications - up to 3 most recent administrations Medication Order MAR Action Action Date Dose Rate Site HYDROmorphone (PF) (DILAUDID) injection 1 mg 1 mg, intravenous, Once, On Thu01/30/25 at 1415, For 1 dose Given 01/30/2025 2:19 PM EDT 1 mg HYDROmorphone (PF) (DILAUDID) injection 1 mg 1 mg, intravenous, Once, On Thu01/30/25 at 1520, For 1 dose Given 01/30/2025 3:36 PM EDT 1 mg morphine injection 4 mg 4 mg, intravenous, Once, On Thu01/30/25 at 1130, For 1 dose Given 01/30/2025 11:42 AM EDT 4 mg ondansetron (PF) (ZOFRAN) injection 4 mg 4 mg, intravenous, Once, On Thu01/30/25 at 1130, For 1 dose Given 01/30/2025 11:42 AM EDT 4 mg documented in this encounter Active and Recently Administered Medications Times are shown in EDT. Scheduled Medication Order 01/28/2025 01/29/2025 01/30/2025 HYDROmorphone (PF) (DILAUDID) injection 1 mg (COMPLETED) 1 mg, intravenous, Once, On Thu01/30/25 at 1415, For 1 dose 1419 (Given - Provid er: Debo Barrientos RN) HYDROmorphone (PF) (DILAUDID) injection 1 mg (COMPLETED) 1 mg, intravenous, Once, On Thu01/30/25 at 1520, For 1 dose 1536 (Given - Provid er: Janice Bennett RN) morphine injection 4 mg (COMPLETED) 4 mg, intravenous, Once, On Thu01/30/25 at 1130, For 1 dose 1142 (Given - Provid er: Debo Barrientos RN) ondansetron (PF) (ZOFRAN) injection 4 mg (COMPLETED) 4 mg, intravenous, Once, On Thu01/30/25 at 1130, For 1 dose 1142 (Given - Provid er: Debo Barrientos RN) documented in this encounter Additional Health Concerns Assessment Noted Time PHQ-9 Depression Total Score: 19 025 3:42 PM EST documented as of this encounter Care Teams Client Relations Representative Relationship Specialty Start Date End Date Patricio Asher MD [address] [place] [id number] PCP - General 10/21/23 documented as of this encounter
== END 2025-01-31 11:09 | disposition home or self-care (01) ==
LOC: HO.HSMS 10:14
PROVIDERS: PCP Internal Medicine; Visit Provider Psychiatry & Neurology Neurology
DX: G24.3 Spasmodic torticollis (principal)
CPT/HCPCS: 64616

== ENCOUNTER → 2025-01-31 10:13 | Outpatient (BNVA) | payer OTHER, SELFPAY | PROVIDERS: PCP Internal Medicine; Visit Provider Psychiatry & Neurology Neurology | DX: G24.3 Spasmodic torticollis (principal) | CPT/HCPCS: 64616; 99211; J0585 ==

== ENCOUNTER → 2025-02-27 14:20 | Outpatient (REF) | payer OTHER, SELFPAY ==
--- OUTSIDE RECORDS SUMMARY | 2025-02-27 14:31 | XMS_ITS | Clinical Summary ---
Author Organization [address] [place] [address] Address [address] [place] [address] Phone Care Team Providers Care Parasitology Teacher Name Role Phone Patricio Asher MD Primary Care Provider Allergies Active Allergy Reactions Criticality Noted Date Comments Doxycycline Nausea And Vomiting 05/28/2021 Latex Other 06/04/2021 Skin irritation Lisinopril Cough 12/07/2024 [place] GI intolerance 02/06/2025 Causes stomach pain Ketorolac Anaphylaxis High 02/14/2025 Trouble breathing, dizziness Tramadol Wheezing 05/28/2021 Medications cholecalcifero l (VITAMIN D-3) 50 mcg (2,000 unit) tablet Take 1 tablet (2,000 Units total) by mouth 1 (one) time each day. 07/01/20 24 Active amLODIPine (NORVASC) 2.5 mg tablet Take 1 tablet (2.5 mg total) by mouth 1 (one) time each day. 90 each 1 12/07/19 25 Active venlafaxine XR (EFFEXOR-XR) 75 mg 24 hr capsule Take 1 capsule (75 mg total) by mouth 1 (one) time each day. 90 capsule 1 12/07/19 25 Active lidocaine 4 % patch Apply 1 patch topically 1 (one) time each day. 30 each 01/31/20 25 025 Active methocarbamoL (ROBAXIN) 750 mg tablet Take 1 tablet (750 mg total) by mouth 4 (four) times a day for 10 days. 20 each 01/31/20 25 Active cyclobenzaprin e (FLEXERIL) 10 mg tablet Take 1 tablet (10 mg total) by mouth at bedtime as needed for muscle spasms. 01/06/20 25 Active pregabalin (LYRICA) 100 mg capsule Take 1 capsule (100 mg total) by mouth 3 (three) times a day. Max Daily Amount: 300 mg Active buprenorphine- naloxone (SUBOXONE) 8-2 mg per [...] Max Daily Amount: 3 films 42 each 02/15/20 25 025 Active omeprazole (PriLOSEC) [address] capsule TAKE 1 CAPSULE BY MOUTH TWICE A DAY 180 capsule 02/28/20 25 Active omeprazole (PriLOSEC) [address] capsule Take 1 capsule (40 mg total) by mouth 2 (two) times a day. 07/01/20 24 025 Discontinued oxyCODONE (ROXICODONE) 5 mg immediate release tablet Take 1 Tablet by mouth daily as needed for Pain (severe pain). 07/01/20 24 025 Discontinued dicyclomine (BENTYL) 10 mg capsule TAKE 1 CAPSULE BY MOUTH 3 TIMES DAILY NEEDED (ABDOMINAL PAIN/ SPASM). 270 capsule 09/23/20 24 025 Discontinued buprenorphine- naloxone (SUBOXONE) 8-[address] film [address] 1 film under the tongue 3 (three) times a day for 14 days. After the medication is completely dissolved, take a large sip of water, swish it around teeth and gums, and swallow. Wait at least 1 hour before brushing teeth to avoid damage to your teeth. Max Daily Amount: 3 films 42 each 01/18/20 25 025 Discontinued(Re order) naproxen (NAPROSYN) 500 mg tablet Take 1 tablet (500 mg total) by mouth 2 (two) times a day with meals for 15 days. 30 tablet 01/31/20 25 025 acetaminophen (TYLENOL) 500 mg tablet Take 2 tablets (1,000 mg total) by mouth every 6 (six) hours if needed for mild pain for up to 10 days. 30 tablet 01/31/20 25 025 methylPREDNISo lone (MEDROL DOSPAK) 4 mg tablet Take 1 tablet by mouth as directed on the package. 21 tablet 01/31/20 25 025 buprenorphine- naloxone (SUBOXONE) 8-[address] film [address] 1 film under the tongue 3 (three) times a day for 14 days. After the medication is completely dissolved, take a large sip of water, swish it around teeth and gums, and swallow. Wait at least 1 hour before brushing teeth to avoid damage to your teeth. Max Daily Amount: 3 films 42 each 02/01/20 25 025 Discontinued(Re order) cephalexin (KEFLEX) 500 mg capsule Take 1 capsule (500 mg total) by mouth 3 (three) times a day for 7 days. 21 capsule 02/04/20 025 Active Problems Problem Noted Date Diagnosed Date Renal cyst, right 02/13/2025 Iron deficiency anemia due to chronic blood loss 02/13/2025 Hematuria, unspecified type 02/03/2025 Chronic midline low back pain without sciatica 0 07/01/2024 Irritable bowel syndrome 07/01/2024 Primary hypertension 07/01/2024 Anxiety and depression 10/29/2023 Gastric polyp 10/29/2023 Renal calculus, bilateral 10/29/2023 Tension headache 10/29/2023 Mild oxycodone-acetaminophen use disorder ([facility] V24, [facility] V28) 06/30/2021 ADHD (attention deficit hyperactivity disorder) 06/04/2021 Gastroesophageal reflux disease without esophagi tis 06/04/2021 Marijuana use 06/04/2021 Overview (08/16/2024): Utox positive 05/28/21 Mood disorder ([facility] V24) 06/04/2021 Tubular adenoma 06/04/2021 Overview (08/16/2024): CN 09/11/20 Substance use disorder 04/25/2021 Overview (08/16/2024): On suboxone Encounters Date Type Department Care Team Description 02/23/2025 Lab Requisition [facility] - Main Lab [address] [facility] [place] [address] James Au PA Gross hematuria 02/14/2025 5:45 PM EDT Office Visit [facility] [address] [place] [phone] Juni Tran MD Substance use disorder (Primary Dx) 02/09/2025 Telephone Adult Medicine [facility] [address] [place] [address] Patricio Asher MD Nephrolithiasis; Hospitalization/ER 02/07/2025 Telephone [facility] [place] [address] [place] [phone] Juni Tran MD Medication 02/03/2025 2:42 PM EDT - 02/06/2025 3:59 PM EDT Hospital Encounter [facility] [address] [place] [phone] Alejandrina Armstrong DO Jones, Christopher, MD Bell, Alistair A, MD Kela, Kashyap Devendrabhai, MD Hematuria, unspecified type (Primary Dx); Flank pain, acute Discharge Disposition: Left Against Medical Advice 01/31/2025 6:00 PM EDT Telemedicine [facility] [address] [phone] Juni Tran MD Substance use disorder (Primary Dx) 01/30/2025 11:07 AM EDT - 01/30/2025 4:39 PM EDT Emergency [facility] Emergency [address] [place] [address] Acute low back pain, unspecified back pain laterality, unspecified whether sciatica present (Primary Dx) Discharge Disposition: Home or Self Care 01/17/2025 6:00 PM EDT Office Visit [facility] [address] [place] [phone] Juni Tran MD Substance use disorder (Primary Dx) 01/03/2025 6:00 PM EDT Office Visit [facility] [address] [place] [address] Juni Tran MD Substance use disorder (Primary Dx) 12/27/2024 6:00 PM EDT Office Visit [facility] [address] [place] [address] Juni Tran MD Substance use disorder (Primary Dx) 12/20/2024 5:45 PM EDT Office Visit [facility] [address] [place] [address] Juni Tran MD Substance use disorder (Primary Dx) 12/13/2024 3:15 PM EST Office Visit [facility] [place] [address] Juni Tran MD Substance use disorder (Primary Dx); Opiate withdrawal (CMS/[facility] V24, CMS/HCC V28) 12/07/2024 8:15 AM EST Office Visit [address] [phone] Patricio Asher MD Acute non-recurrent maxillary sinusitis (Primary Dx); Primary hypertension; Other chronic pain; Chronic midline low back pain without sciatica; Anxiety and depression; Gastroesophageal reflux disease without esophagitis; Irritable bowel syndrome, unspecified type from Last 3 Months Immunizations Name Administration [...] COLONOSCOPY; COMMENT: tubular adenoma ESOPHAGOGASTRODUODENOSCOPY 09/11/2020 PROCEDURE: IA ESOPHAGOGASTRODUODENOSCOPY TRANSORAL DIAGNOSTIC; COMMENT: polyp in the [...] disorder (CMS/HCC V24) 06/04/2021 DX:M ood disorder ([facility]) Substance use disorder 04/25/2021 DX:Substa nce use [...] What is your living situation? 0 12/06/2024 Interpersonal Safety Answer Date Record ed Physical Abuse 02/04/2025 Verbal Abuse 02/04/2025 Sex and Gender Information Value Date Recorded Sex Assigned at Male 11/05/2024 8:54 AM EST Legal Sex Male 2:26 AM EST Gender Identity Male 11/05/2024 8:54 AM EST Sexual Orientation Straight 11/05/2024 8: 54 AM EST Obstetrics History Last Filed Vital Signs Vital Sign Reading Time Taken Comments Blood Pressure 114/86 02/14/2025 5:46 PM EDT Pulse 104 02/14/2025 5:46 PM EDT Temperature 36.3 ??C (97.3 ??F) 02/06/2025 7:35 AM ED T Respiratory Rate 17 02/06/2025 7:35 AM EDT Oxygen Saturation 96% 02/14/2025 5:46 PM EDT Inhaled Oxygen Concentration - - Weight 79.4 kg (175 lb) 02/03/2025 8:48 AM EDT Height 170.2 cm (5' 7 ) 02/03/2025 8:48 AM EDT Body Mass Index 27.41 02/03/2025 8:48 AM EDT Plan of Treatment Upcoming Encounters Date Type Department Care Team (Late st Contact Info) Description 02/28/2025 10:00 AM EDT Office Visit [facility] [address] [place] [address] Juni Tran MD [address] [place] [address] Health Maintenance Due Date Last Done Comments Hepatitis A Vaccines (1 of 2 - Risk 2-dose series) 2002 Hepatitis B Vaccines (1 of 3 - 19+ 3-dose series) 2002 COVID-19 Vaccine ( - season) 2024 01/09/2023, 02/16/2021 Influenza Vaccine (Season Ended) 2025 06/24/2020, 10/24/2017, 07/21/2014 Social Influencers of Health Screening 12/06/2025 12/06/2024 Depression Screening 12/12/2025 12/12/2024, 07/01/20 24 Hypertension/CHF/CAD Annual BMP Blood Test 02/05/2026 02/05/2025, 02/04/2025, 02/03/2025, Additional history exists Cholesterol Screening (Lipid Panel) 12/14/2028 12/15/2023 DTaP,Tdap,and Td Vaccines (4 - Td or Tdap) 12/13/2033 12/14/2023, 08/01/2021, 07/19/2011 Pneumococcal Vaccine: Pediatrics (0 to 5 Years) and At-Risk Patients (6 to 64 Years) Aged Out 10/24/2017 No longer eligible based on patient's age to complete this topic HIV Screening Completed 12/13/2024 Hepatitis C Screening Completed 12/13/2024, 02/19/2 024 HIB Vaccines Aged Out No longer [...] Procedure Name Priority Date/Time Associated Diagnosis Comments POC URINE DRUG SCREEN Routine 02/14/2025 6:27 PM EDT Substance use disorder COMPLETE BLOOD COUNT Routine 02/05/2025 6:40 AM EDT BASIC METABOLIC PANEL Routine 02/05/2025 6:40 AM EDT CBC WITH AUTO DIFFERENTIAL Routine 02/04/2025 4:55 AM EDT CBC AND DIFFERENTIAL Routine 02/04/2025 4:55 AM EDT BASIC METABOLIC PANEL Routine 02/04/2025 4:55 AM EDT BUPRENORPHINE SCREEN, URINE STAT 02/04/2025 12:45 AM EDT DRUG ABUSE SCREEN 8A PANEL, URINE STAT 02/04/2025 12:[address] UROGRAM (IVP) STAT 02/03/2025 9:41 PM EDT US RETROPERITONEAL COMPLETE STAT 02/03/2025 8:[address] ABDOMEN PELVIS WO CONTRAST STAT 02/03/2025 5:53 PM EDT PAINTING URINE CULTURE TUBE STAT 02/04/20 8:57 AM EDT URINALYSIS WITH REFLEX MICROSCOPIC AND CULTURE STAT 02/03/2025 8:57 AM EDT URINALYSIS WITH REFLEX MICROSCOPIC AND CULTURE STAT 02/03/2025 8:57 AM EDT CULTURE URINE STAT 02/03/2025 8:57 AM EDT CBC WITH AUTO DIFFERENTIAL STAT 02/03/2025 8:55 AM EDT LIPASE STAT 02/03/2025 8:55 AM EDT COMPREHENSIVE METABOLIC PANEL STAT 02/03/2025 8:55 AM EDT CBC AND DIFFERENTIAL STAT 02/03/2025 8:55 AM EDT MR LUMBAR SPINE WO CONTRAST STAT 01/30/2025 [...] 12/13/2024 4:34 PM EST Substance use disorder HM DEPRESSION SCREENING Routine 07/01/2024 LIPID PANEL Routine 12/15/2023 from Last 3 Months or Most Recently Relevant to Health Maintenance Results * (ABNORMAL) POC Urine Drug Screen (02/14/2025 6:27 PM EDT) Only the most recent of6 resultswithin the time period is included. Amphetamine Screen, Ur POC Negative Negative Barbituates, [...] Ur POC Negative Negative Temperature, Ur POC 94 Urine Urine specimen obtained by clean catch procedure / Unknown 02/14/2025 6:27 PM EDT Juni Tran MD POINT OF CARE TEST ENTER/EDIT OR DERABLES Final Result * (ABNORMAL) Complete blood count (02/05/2025 6:40 AM EDT) [facility] WBC 5.2 4.8 - 10.8 K/mcL LAB HEMETOLOGY METHOD 02/05/2025 7:41 AM [facility] RBC 3.70(L) 4.50 - 5.50 M/mcL LAB HEMETOLOGY METHOD 02/05/2025 7:41 AM [facility] Hemoglobin 10.8(L) 13.5 - 17.5 g/dL LAB HEMETOLOGY METHOD 02/05/2025 7:41 AM [facility] Hematocrit 33.4(L) 42.0 - 54.0 % LAB HEMETOLOGY METHOD 02/05/2025 7:41 AM [facility] MCV 91.0 79.0 - 98.0 FL LAB HEMETOLOGY METHOD 02/05/2025 7:41 AM [facility] MCH 29.4 27.0 - 32.0 pcg LAB HEMETOLOGY METHOD 02/05/2025 7:41 AM [facility] MCHC 32.3 32.0 - 37.0 g/dL LAB HEMETOLOGY METHOD 02/05/2025 7:41 AM [facility] RDW 13.8 11.0 - 15.0 % LAB HEMETOLOGY METHOD 02/05/2025 7:41 AM [facility] Platelets 298 130 - 400 K/mcL LAB HEMETOLOGY METHOD 02/05/2025 7:41 AM [facility] MPV 10.2 7.0 - 11.0 FL LAB HEMETOLOGY METHOD 02/05/2025 7:41 AM [facility] NRBC 0.0 <1.0 % LAB HEMETOLOGY METHOD 02/05/2025 7:41 AM [facility] NRBC Absolute 0.00 <0.10 K/mcL LAB HEMETOLOGY METHOD 02/05/2025 7:41 AM EDT [facility] Blood Venous blood specimen / Unknown Venipuncture / Unknown 02/05/2025 6:40 AM EDT 02/05/2025 7:07 AM EDT us Pietro Meade MD LAB BLOOD ORDERABLES Final Re sult [facility] [address] [place] [address], [place] [phone] * (ABNORMAL) Basic metabolic panel (02/05/2025 6:40 AM EDT) Only the most recent of2 resultswithin the time period is included. Sodium 143 133 - 145 mmol/L LAB CHEMISTRY METHOD 02/05/2025 8:22 AM [facility] Potassium 4.2 3.5 - 5.5 mmol/L LAB CHEMISTRY METHOD 02/05/2025 8:22 AM [facility] Chloride 106 96 - 110 mmol/L LAB CHEMISTRY METHOD 02/05/2025 8:22 AM [facility] CO2 34(H) 21 - 32 mmol/L LAB CHEMISTRY METHOD 02/05/2025 8:22 AM [facility] Anion Gap 3 3 - 11 LAB CHEMISTRY METHOD 02/05/2025 8:22 AM [facility] Glucose 112(H) 70 - 100 mg/dL LAB CHEMISTRY METHOD 02/05/2025 8:22 AM [facility] BUN 14 5 - 25 mg/dL LAB CHEMISTRY METHOD 02/05/2025 8:22 AM [facility] Creatinine 0.79 0.70 - 1.30 mg/dL LAB CHEMISTRY METHOD 02/05/2025 8:22 AM [facility] eGFR 114 >=60 mL/min/1. 73m2 LAB CHEMISTRY METHOD 02/05/2025 8:22 AM EDT [facility] Comment:Calculation based on the??Chronic Kidney Disease Epidemiology Collaboration (CKD-EPI) equation refit??without adjustment for race. BUN/Creatinine Ratio 17.7 LAB CHEMISTRY METHOD 02/05/2025 8:22 AM EDT [facility] Calcium 9.0 8.5 - 10.5 mg/dL LAB CHEMISTRY METHOD 02/05/2025 8:22 AM EDT [facility] Blood Venous blood specimen / Unknown Venipuncture / Unknown 02/05/2025 6:40 AM EDT 02/05/2025 7:06 AM EDT us Pietro Meade MD LAB BLOOD ORDERABLES Final Re sult [facility] [address] [place] [address], * (ABNORMAL) CBC auto differential (02/04/2025 4:55 AM EDT) Only the most recent of4 resultswithin the time period is included. WBC 6.9 4.8 - 10.8 K/mcL LAB HEMETOLOGY METHOD 02/04/2025 5:19 AM [facility] RBC 3.50(L) 4.50 - 5.50 M/mcL LAB HEMETOLOGY METHOD 02/04/2025 5:19 AM EDT [facility] Hemoglobin 10.4(L) 13.5 - 17.5 g/dL LAB HEMETOLOGY METHOD 02/04/2025 5:19 AM [facility] Hematocrit 31.8(L) 42.0 - 54.0 % LAB HEMETOLOGY METHOD 02/04/2025 5:19 AM [facility] MCV 89.8 79.0 - 98.0 FL LAB HEMETOLOGY METHOD 02/04/2025 5:19 AM EDT [facility] MCH 29.4 27.0 - 32.0 pcg LAB HEMETOLOGY METHOD 02/04/2025 5:19 AM [facility] MCHC 32.7 32.0 - 37.0 g/dL LAB HEMETOLOGY METHOD 02/04/2025 5:19 AM [facility] RDW 13.7 11.0 - 15.0 % LAB HEMETOLOGY METHOD 02/04/2025 5:19 AM [facility] Platelets 248 130 - 400 K/mcL LAB HEMETOLOGY METHOD 02/04/2025 5:19 AM [facility] MPV 10.0 7.0 - 11.0 FL LAB HEMETOLOGY METHOD 02/04/2025 5:19 AM [facility] NRBC 0.0 <1.0 % LAB HEMETOLOGY METHOD 02/04/2025 5:19 AM [facility] NRBC Absolute 0.00 <0.10 K/mcL LAB HEMETOLOGY METHOD 02/04/2025 5:19 AM [facility] Neutrophils Relative 79.4 % LAB HEMETOLOGY METHOD 02/04/2025 5:19 AM [facility] Lymphocytes Relative 15.1 % LAB HEMETOLOGY METHOD 02/04/2025 5:19 AM [facility] Monocytes Relative 4.7 % LAB HEMETOLOGY METHOD 02/04/2025 5:19 AM [facility] Eosinophils Relative 0.1 % LAB HEMETOLOGY METHOD 02/04/2025 5:19 AM [facility] Basophils Relative 0.4 % LAB HEMETOLOGY METHOD 02/04/2025 5:19 AM [facility] Immature Granulocytes Relative 0.3 % LAB HEMETOLOGY METHOD 02/04/2025 5:19 AM [facility] Neutrophils Absolute 5.46 1.50 - 7.00 K/mcL LAB HEMETOLOGY METHOD 02/04/2025 5:19 AM EDT [facility] Lymphocytes Absolute 1.04 1.00 - 5.00 K/mcL LAB HEMETOLOGY METHOD 02/04/2025 5:19 AM EDT [facility] Monocytes Absolute 0.32 0.20 - 1.00 K/mcL LAB HEMETOLOGY METHOD 02/04/2025 5:19 AM EDT [facility] Eosinophils Absolute 0.01 0.00 - 0.50 K/mcL LAB HEMETOLOGY METHOD 02/04/2025 5:19 AM EDT [facility] Basophils Absolute 0.03 0.00 - 0.20 K/mcL LAB HEMETOLOGY METHOD [facility] Immature Granulocytes Absolute 0.02 0.00 - 0.03 K/mcL LAB HEMETOLOGY METHOD 02/04/2025 5:19 AM T [facility] Blood Venous blood specimen / Unknown Venipuncture / Unknown 02/04/2025 4:55 AM EDT 02/04/2025 4:59 AM EDT Steve Nava MD LAB BLOOD ORDERABLES Final Result [facility] [address] [place] [address], * (ABNORMAL) Drug abuse screen 8a panel, urine (02/04/2025 12:45 AM EDT) Amphetamine Screen, Ur Negative Negative LAB CHEMISTRY METHOD 2:21 AM EDT [facility] Comment:Certain OTC medicati ons containing ephedrine, phenylephrine, pseudoephedrine and phenylpropanolamine can cause false positive results. Barbiturate Screen, Ur Negative Negative LAB CHEMISTRY METHOD 2:21 AM [facility] Benzodiazepine Screen, Ur Negative Negative LAB CHEMISTRY METHOD 5 2:21 AM [facility] Cocaine Screen, Ur Negative Negative LAB CHEMISTRY METHOD 5 2:21 AM [facility] Opiate Screen, Ur Positive(A ) Negative LAB CHEMISTRY METHOD 5 2:21 AM [facility] Cannabinoid (THC) Screen, Ur Negative Negative LAB CHEMISTRY METHOD 5 2:21 AM [facility] Comment:Specimens from patie nts taking pantoprazole sodium (Protonix) have been shown to produce false positive results. Oxycodone Screen, Ur Positive(A ) Negative LAB CHEMISTRY METHOD 5 2:21 AM [facility] Fentanyl, Ur Negative Negative LAB CHEMISTRY METHOD 5 2:21 AM [facility] Urine Urine specimen obtained by clean catch procedure / Unknown Non-blood Collection / Unknown 02/04/2025 12:45 AM EDT 02/04/2025 1:54 AM EDT [facility] - 02/04/2025 2:21 AM EDT Assay cutoffs: Amphetamines ? 1000 ng/mL Barbiturates ?200 ng/mL Benzodiazepines ?? 200 ng/mL Cocaine ? 300 ng/mL Fentanyl ?1 ng/mL Opiates ? 300 ng/mL Oxycodone ? 100 ng/mL THC ?50 ng/mL Semi-quantitative assay for screening purposes only. Unconfirmed screening result should not be used for non-medical purposes. *ALTERNATE METHOD CONFIRMATION DONE UPON REQUEST ONLY* Steve Nava MD LAB URINE ORDERABLES Final Result Performing Organization Address City/State/[facility] de Phone Number [facility] [address] [place] [address], * (ABNORMAL) Buprenorphine screen, urine (02/04/2025 12:45 AM EDT) [facility] Buprenorphine Screen Urine Positive (A) Negative LAB CHEMISTRY METHOD 02/04/2025 2:14 AM EDT [facility] Urine Urine specimen obtained by clean catch procedure / Unknown Non-blood Collection / Unknown 02/04/2025 12:45 AM EDT 02/04/2025 1:54 AM EDT Narrative [facility] - 02/04/2025 2:14 AM EDT Assay cutoff 5 ng/mL Semi-quantitative assay for screening purposes only. Unconfirmed screening result should not be used for non-medical purposes. *ALTERNATE METHOD CONFIRMATION DONE UPON REQUEST ONLY* Steve Nava MD LAB URINE ORDERABLES Final Result Performing Organization Address [facility] de Phone Number [facility] [address] [place] [address], * CT Urogram (IVP) (02/03/2025 9:41 PM EDT) Anatomical Region Laterality Modality Body Computed Tomogra phy 02/03/2025 10:1 6 PM EDT Impressions 02/03/2025 10:16 PM EDT 1. No acute inflammatory process identified within the abdomen or pelvis. No CT evidence for renal bleeding. This document has been electronically signed by: Kp Galan MD on 02/03/2025 22:16:33 Narrative 02/03/2025 10:16 PM EDT INDICATION: renal bleed assessment CT abdomen and pelvis with contrast Comparison: US/IA - US RETROPERITONEAL COMPLETE - 02/03/25 20:[address] - CT ABD PEL WO CONTRAST - 02/03/25 17:54 EDT Findings: No consolidation or effusion. The gallbladder and solid organs are within normal limits. No hydronephrosis or hydroureter. The kidneys enhance symmetrically. Contrast is identified within the bilateral renal collecting systems and ureters. Indeterminate 1.1 cm, slightly exophytic structure redemonstrated at the superior pole of the right kidney. No bowel obstruction, pneumoperitoneum, or pneumatosis. The bladder is minimal to mildly distended with fluid and contrast. No focal bladder wall thickening identified. Unremarkable prostate gland. Normal appendix. No acute fracture visualized. There are bilateral L5 pars interarticularis defects. Procedure Note Kp Galan MD - 02/03/2025 INDICATION: renal bleed assessment CT abdomen and pelvis with contrast Comparison: US/IA - US RETROPERITONEAL COMPLETE - 02/03/25 20:[address] - CT ABD PEL WO CONTRAST - 02/03/25 17:54 EDT Findings: No consolidation or effusion. The gallbladder and solid organs are within normal limits. No hydronephrosis or hydroureter. The kidneys enhance symmetrically.Contrast is identified within the bilateral renal collecting systems and ureters. Indeterminate 1.1 cm, slightly exophytic structure redemonstrated at the superior pole of the right kidney. No bowel obstruction, pneumoperitoneum, or pneumatosis. The bladder is minimal to mildly distended with fluid and contrast. No focal bladder wall thickening identified. Unremarkable prostate gland. Normal appendix. No acute fracture visualized. There are bilateral L5 parsinterarticularis defects. IMPRESSION: 1. No acute inflammatory process identified within the abdomen orpelvis. No CT evidence for renal bleeding. This document has been electronically signed by: Kp Galan MD on 02/03/2025 22:16:33 us Steve Nava MD IMG CT PROCEDURES Final Res ult * US Retroperitoneal Complete (02/03/2025 8:39 PM EDT) Anatomical Region Laterality Modality Body Ultrasound 02/03/2025 9:25 PM EDT Impressions 02/03/2025 9:25 PM EDT No hydronephrosis. Small echogenic foci measuring up to 4.6 mm in diameter are present at the right kidney. These findings are nonspecific but may represent small nonobstructing right renal calculi. 1.9 cm cystic structure identified of the right renal hilum, possibly consistent with a parapelvic cyst or minimal right renal pelviectasis. The previously demonstrated hyperdense structure at the superior pole of the right kidney is not clearly identified on this examination. May consider nonemergent renal protocol contrast-enhanced abdomen MRI examination for further evaluation. This document has been electronically signed by: Kp Galan MD on 02/03/2025 21:25:46 Narrative 02/03/2025 9:25 PM EDT INDICATION: pain US Renal Comparison: CT - CT ABD PEL WO CONTRAST - 02/03/25 17:54 EDT Findings: Right kidney normal size and echotexture, measuring 10.1 cm length. Left kidney normal size and echotexture, measuring 11.3 cm length. Flow present at the bilateral kidneys on color Doppler imaging. No hydronephrosis identified. Small echogenic foci without significant posterior acoustic features are present at the right kidney, measuring up to 4.6 mm in diameter. A 1.9 cm cystic structure with posterior acoustic enhancement is identified at the right renal hilum. The bladder is partially distended with fluid. No focal bladder wall thickening or significant intraluminal debris identified. Bilateral ureteral jets are visualized. Procedure Note Kp Galan MD - 02/03/2025 INDICATION: pain US Renal Comparison: CT - CT ABD PEL WO CONTRAST - 02/03/25 17:54 EDT Findings: Right kidney normal size and echotexture, measuring 10.1 cm length. Left kidney normal size and echotexture, measuring 11.3 cm length. Flow present at the bilateral kidneys on color Doppler imaging. No hydronephrosis identified. Small echogenic foci without significant posterior acoustic features are present at the right kidney, measuringup to 4.6 mm in diameter. A 1.9 cm cystic structure with posterior acoustic enhancement is identified at the right renal hilum. The bladder is partially distended with fluid. No focal bladder wall thickening or significant intraluminal debris identified. Bilateral ureteral jets are visualized. IMPRESSION: No hydronephrosis. Small echogenic foci measuring up to 4.6 mm in diameter are present atthe right kidney. These findings are nonspecific but may represent small nonobstructing right renal calculi. 1.9 cm cystic structure identified of the right renal hilum, possibly consistent with a parapelvic cyst or minimal right renal pelviectasis.The previously demonstrated hyperdense structure at the superior pole of the right kidney is not clearly identified on this examination. May consider nonemergent renal protocol contrast-enhanced abdomen MRI examination for further evaluation. This document has been electronically signed by: Kp Galan MD on 02/03/2025 21:25:46 us Steve Nava MD IMG US PROCEDURES Final Res ult * CT Abdomen Pelvis wo Contrast (02/03/2025 5:53 PM EDT) Anatomical Region Laterality Modality Body Computed Tomogra phy 02/03/2025 6:13 PM EDT Impressions 02/03/2025 6:13 PM EDT Impression: 1. Punctate nonobstructing right renal calculi. 2. Otherwise no acute abnormalities or CT explanation for flank pain. Specifically, no ureteral stones or hydroureteronephrosis. 3. Stable small indeterminate density right renal upper pole lesion, possibly mildly hyperdense cyst. Nonemergent renal ultrasound could be performed for further characterization. This document has been electronically signed by: Adrien Sykes MD on 02/03/2025 18:13:02 Narrative 02/03/2025 6:13 PM EDT INDICATION: Flank pain, kidney stone suspected Exam: Unenhanced CT abdomen and pelvis with multiplanar reformats. Comparison: 11/17/2024. Findings: CT abdomen: Lung bases are clear. Liver is free of gross focal lesions and ductal dilatation. Gallbladder appears unremarkable. Spleen appears unremarkable. Pancreas and adrenal glands appear unremarkable. Kidneys reveal a punctate nonobstructing right renal lower pole calculi (3; 68 and 71). No ureteral stones or hydroureteronephrosis. An indeterminate density right renal upper pole exophytic lesion measuring up to 11 mm (3; 50, 36 Hounsfield units) appears stable, likely mildly hyperdense cyst although indeterminate. No free intraperitoneal fluid or retroperitoneal masses or adenopathy. Abdominal aorta is normal caliber. Bowel loops reveal no abnormal wall thickening or distention. The appendix is unremarkable. No significant diverticular disease. CT pelvis: Prostate gland and seminal vesicles are stable. Urinary bladder is free of gross filling defects. No pelvic masses, fluid or adenopathy. Osseous structures reveal no destructive osseous lesions. Procedure Note Adrien Sykes MD - 02/03/2025 INDICATION: Flank pain, kidney stone suspected Exam: Unenhanced CT abdomen and pelvis with multiplanar reformats. Comparison: 11/17/2024. Findings: CT abdomen: Lung bases are clear. Liver is free of gross focal lesionsand ductal dilatation. Gallbladder appears unremarkable. Spleen appears unremarkable. Pancreas and adrenal glands appear unremarkable. Kidneys reveal a punctate nonobstructing right renal lower pole calculi (3; 68 and 71). No ureteral stones or hydroureteronephrosis. An indeterminate density right renal upper pole exophytic lesion measuringup to 11 mm (3; 50, 36 Hounsfield units) appears stable, likely mildly hyperdense cyst although indeterminate. No free intraperitoneal fluid or retroperitoneal masses or adenopathy. Abdominal aorta is normal caliber. Bowel loops reveal no abnormal wall thickening or distention. Theappendix is unremarkable. No significant diverticular disease. CT pelvis: Prostate gland and seminal vesicles are stable. Urinarybladder is free of gross filling defects. No pelvic masses, fluid or adenopathy. Osseous structures reveal no destructive osseous lesions. IMPRESSION: Impression: 1. Punctate nonobstructing right renal calculi. 2. Otherwise no acute abnormalities or CT explanation for flank pain. Specifically, no ureteral stones or hydroureteronephrosis. 3. Stable small indeterminate density right renal upper pole lesion, possibly mildly hyperdense cyst. Nonemergent renal ultrasound could be performed for further characterization. This document has been electronically signed by: Adrien Sykes MD on 02/03/2025 18:13:02 us [facility] Winston Armstrong DO IMG CT PROCEDURES Final R esult * (ABNORMAL) Urinalysis with reflex microscopic and culture (02/03/2025 8:57 AM EDT) Specific [place]t Urine >=1.030 1.003 - 1.030 LAB URINALYSIS - AUTOMATED METHOD 02/03/2025 9:55 AM EDT [facility] pH, Urine 6.0 5.0 - 8.0 pH LAB URINALYSIS - AUTOMATED METHOD 02/03/2025 9:55 AM EDT [facility] Leukocytes, Urine Negative Negative LAB URINALYSIS - AUTOMATED METHOD 02/03/2025 9:55 AM [facility] Nitrite, Urine Negative Negative LAB URINALYSIS - AUTOMATED METHOD 02/03/2025 9:55 AM [facility] Protein, Urine 100(A) <=Trace mg/dL LAB URINALYSIS - AUTOMATED METHOD 02/03/2025 9:55 AM [facility] Glucose, Urine Negative Negative mg/dL LAB URINALYSIS - AUTOMATED METHOD 02/03/2025 9:55 AM [facility] Ketones, Urine Negative Negative mg/dL LAB URINALYSIS - AUTOMATED METHOD 02/03/2025 9:55 AM [facility] Urobilinogen , Urine 0.2 0.2 - 1.0 mg/dL LAB URINALYSIS - AUTOMATED METHOD 02/03/2025 9:55 AM [facility] Bilirubin, Urine Small(A) Negative LAB URINALYSIS - AUTOMATED METHOD 02/03/2025 9:55 AM [facility] Blood, Urine Large(A) Negative LAB URINALYSIS - AUTOMATED METHOD 02/03/2025 9:55 AM [facility] RBC, Urine >4,000(H) 0 - 4 /HPF LAB URINALYSIS - AUTOMATED METHOD 02/03/2025 9:55 AM [facility] WBC, Urine 10.0(H) 0 - 4 /HPF LAB URINALYSIS - AUTOMATED METHOD 02/03/2025 9:55 AM [facility] Squamous Epithelial, Urine 0 0 - 60 /LPF LAB URINALYSIS - AUTOMATED METHOD 02/03/2025 9:55 AM [facility] Bacteria, Urine Few(A) Negative /HPF LAB URINALYSIS - AUTOMATED METHOD 02/03/2025 9:55 AM [facility] Hyaline Casts, Urine 10.0(H) 0 - 3 /LPF LAB URINALYSIS - AUTOMATED METHOD 02/03/2025 9:55 AM EDT [facility] Urine Urine specimen obtained by clean catch procedure / Unknown Non-blood Collection / Unknown 02/03/2025 8:57 AM EDT 02/03/2025 9:04 AM EDT Ede Sharma MD LAB URINE ORDERABLES Final Result Performing Organization Address [facility]/ZIP Co de Phone Number [facility] [address] [place] [address], [place] [phone] * Painting urine culture tube (02/03/2025 8:57 AM EDT) Extra Tube Hold for add-ons. 02/03/2025 11:01 AM EDT [facility] Comment:Auto resulted. Urine Urine specimen obtained by clean catch procedure / Unknown Non-blood Collection / Unknown 02/03/2025 8:57 AM EDT 02/03/2025 9:04 AM EDT Ede Sharma MD LAB URINE ORDERABLES Final Result Performing Organization Address [facility] de Phone Number [facility] [address] [place] [address], [place] [phone] * Culture urine (02/03/2025 8:57 AM EDT) Culture, Urine <10,000 CFU/mL gram positive cocci, insignificant count, no further workup 02/04/2025 10:15 AM EDT [facility] Urine Urine specimen obtained by clean catch procedure / Unknown Non-blood Collection / Unknown 02/03/2025 8:57 AM EDT 02/03/2025 9:55 AM EDT Ede Sharma MD LAB MICROBIOLOGY - GENERAL ORDERABLES Final Result Performing Organization Address [facility] Co de Phone Number [facility] [address] [place] [address], [place] [phone] * Lipase (02/03/2025 8:55 AM EDT) Only the most recent of2 resultswithin the time period is included. Lipase 74 13 - 75 unit/L LAB CHEMISTRY METHOD 02/03/2025 9:35 AM EDT [facility] Blood Venous blood specimen / Unknown Venipuncture / Unknown 02/03/2025 8:55 AM EDT 02/03/2025 9:03 AM EDT Ede Sharma MD LAB BLOOD ORDERABLES Final Result [facility] [address] [place] [address], [place] [phone] * (ABNORMAL) Comprehensive metabolic panel (02/03/2025 8:55 AM EDT) Only the most recent of3 resultswithin the time period is included. Sodium 138 133 - 145 mmol/L LAB CHEMISTRY METHOD 02/03/2025 9:35 AM [facility] Potassium 3.7 3.5 - 5.5 mmol/L LAB CHEMISTRY METHOD 02/03/2025 9:35 AM [facility] Chloride 105 96 - 110 mmol/L LAB CHEMISTRY METHOD 02/03/2025 9:35 AM [facility] CO2 30 21 - 32 mmol/L LAB CHEMISTRY METHOD 02/03/2025 9:35 AM [facility] Anion Gap 3 3 - 11 LAB CHEMISTRY METHOD 02/03/2025 9:35 AM [facility] Glucose 130(H) 70 - 100 mg/dL LAB CHEMISTRY METHOD 02/03/2025 9:35 AM [facility] BUN 17 5 - 25 mg/dL LAB CHEMISTRY METHOD 02/03/2025 9:35 AM [facility] Creatinine 1.09 0.70 - 1.30 mg/dL LAB CHEMISTRY METHOD 02/03/2025 9:35 AM [facility] eGFR 87 >=60 mL/min/1. 73m2 LAB CHEMISTRY METHOD 02/03/2025 9:35 AM [facility] Comment:Calculation based on the??Chronic Kidney Disease Epidemiology Collaboration (CKD-EPI) equation refit??without adjustment for race. BUN/Creatinine Ratio 15.6 LAB CHEMISTRY METHOD 02/03/2025 9:35 AM [facility] Calcium 9.0 8.5 - 10.5 mg/dL LAB CHEMISTRY METHOD 02/03/2025 9:35 AM [facility] AST (SGOT) 15 10 - 42 unit/L LAB CHEMISTRY METHOD 02/03/2025 9:35 AM [facility] ALT (SGPT) 30 10 - 60 unit/L LAB CHEMISTRY METHOD 02/03/2025 9:35 AM [facility] Alkaline Phosphatase 79 42 - 121 unit/L LAB CHEMISTRY METHOD 02/03/2025 9:35 AM [facility] Total Protein 7.7 6.0 - 8.0 g/dL LAB CHEMISTRY METHOD 02/03/2025 9:35 AM [facility] Albumin 4.4 3.2 - 5.0 g/dL LAB CHEMISTRY METHOD 02/03/2025 9:35 AM [facility] Total Bilirubin 0.6 0.0 - 1.4 mg/dL LAB CHEMISTRY METHOD 02/03/2025 9:35 AM [facility] Blood Venous blood specimen / Unknown Venipuncture / Unknown 02/03/2025 8:55 AM EDT 02/03/2025 9:03 AM EDT us Ede Sharma MD LAB BLOOD ORDERABLES Final Result [facility] [address] [place] [address], [place] [phone] * MR Lumbar Spine wo Contrast (01/30/2025 2:17 PM EDT) Anatomical Region Laterality Modality L-spine, Spine Magnetic Resonan ce 01/30/2025 1:55 PM EDT Impressions 01/30/2025 1:59 PM EDT Mild degenerative changes of the lumbar spine. ??No high-grade spinal or foraminal stenosis. -------- FINAL REPORT -------- Dictated By: Jose Perez Dictated Date: 01/30/2025 13:55 ET Assigned Physician: oJse Perez Reviewed and Electronically Signed By: Jose Perez Signed Date: 01/30/2025 13:59 ET Workstation ID: [id number] Transcribed By: Self Edit Transcribed Date: 01/30/2025 [...] Signed Date: 01/30/2025 13:59 ET Workstation ID: [id number] Transcribed By: Self Edit Transcribed Date: 01/30/2025 13:55 ET us Sharri [facility] MRI PROCEDURES Final R esult * HIV 1,2 antibody, p24 antigen with reflex to differentiation (12/13/2024 4:34 PM EST) [facility] HIV Combo AB/AG Negative Negative LAB CHEMISTRY METHOD 12/13/2024 7:58 PM EST [facility] Blood Venous blood specimen / Unknown Venipuncture / Unknown 12/13/2024 4:34 PM EST 12/13/2024 4:34 PM EST Narrative [facility] - 12/13/2024 7:58 PM [...] ORDERABLES Final Resul t Performing Organization Address City/[facility]/ZIP Co de Phone Number [facility] [address] [place] [address], [place] [phone] * Treponema pallidum antibody with reflex to RPR and particle agglutination (12/13/2024 4:34 PM EST) [facility] T. Pallidum Antibodies Negative Negative LAB CHEMISTRY METHOD 12/13/2024 7:29 PM EST [facility] Blood Venous blood specimen / Unknown Venipuncture / Unknown 12/13/2024 4:34 PM EST 12/13/2024 4:34 PM EST us Juni Tran MD LAB BLOOD ORDERABLES Final Resul t [facility] [address] [place] [address], [place] [phone] * Hepatitis panel, acute with reflex to confirmation (12/13/2024 4:34 PM EST) [facility] Hepatitis B Surface Ag Negative Negative LAB CHEMISTRY METHOD 12/13/2024 8:05 PM EST [facility] Hepatitis A Antibody IgM Negative Negative LAB CHEMISTRY METHOD 12/13/2024 8:05 PM EST [facility] Hep B Core IgM Negative Negative LAB CHEMISTRY METHOD 12/13/2024 8:05 PM EST [facility] Hepatitis C Antibody Negative Negative LAB CHEMISTRY METHOD 12/13/2024 8:05 PM EST [facility] Blood Venous blood specimen / Unknown Venipuncture / Unknown 12/13/2024 4:34 PM EST 12/13/2024 4:34 PM EST Juni Tran MD LAB BLOOD ORDERABLES Final Resul t [facility] [address] [place] [address], * Depression Screening (07/01/2024) Pathologist [facility] Depression Screening abstracted Historical Provider HEALTH MAINTENANCE Final Result * (ABNORMAL) Lipid panel (12/15/2023) LDL/HDL Ratio 4 0 - 4 Triglycerides 67 0 - 150 mg/dL Cholesterol 162 0 - 200 mg/dL HDL 39(A) >=40 mg/dL LDL Cholesterol 110(A) 0 - 100 mg/dL Blood Venous blood specimen / Unknown Historical Provider LAB BLOOD ORDERABLES Arlette l Result from Last 3 Months or Most Recently Relevant to Health Maintenance Insurance [facility] Advance Directives * Full Code - Default (Latest Code Status on File) Date Activated Date Inactivated Comments 02/03/2025 8:52 PM 02/06/2025 6:38 PM This is orde r is used when code status has not been discussed with the patient, or code status is otherwise unknown/unconfirmed To update the patient's code status, place a code status order. Do not modify or discontinue any currently active code status orders. Healthcare Agents on File Name Relationship Healthcare Agent [facility] Communication Everett Wang [facility] Health Care Agent Care Teams Parasitology Teacher Relationship Specialty Start Date End Date Patricio Asher MD [address] [place] [id number] PCP - General 10/21/23
--- OUTSIDE RECORDS SUMMARY | 2025-02-27 14:31 | XMS_ITS | Encounter Summary ---
Author Organization [facility] Address [address] [place] [address] Care Team Providers Care Stewarding Supervisor Name Role Phone Patricio Asher MD Primary Care Provider [phone] Encounter Details Date Type Department Care Team (Late st Contact Info) Description 02/23/2025 Lab Requisition [facility] [address] [facility] [place] [address] James Au, REMY [address] [place] [id number] Gross hematuria Social History Tobacco Use Types Packs/Day Years [...] care for your loved ones. For example, child psychology teacher or elderly care for an older adult? [...] AM EST documented as of this encounter Plan of Treatment Upcoming Encounters Date Type Department Care Team (Late st Contact Info) Description 02/28/2025 10:00 AM EDT Office Visit [facility] [address] [place] [address] Juni Tran MD [address] [place] [address] Pending Results Name Type Priority Associated Diagnoses Date /Time Anatomic pathology outside consult Pathology and Cytology Routine Gross hematuria 02/20/2025 12:00 AM EDT documented as of this encounter Visit Diagnoses Diagnosis Gross hematuria documented in this encounter Additional Health Concerns Assessment Noted Time PHQ-9 Depression Total Score: 19 025 3:42 PM EST documented as of this encounter Care Teams Stewarding Supervisor Relationship Specialty Start Date End Date Patricio Asher MD [address] [place] [id number] PCP - General 10/21/23 documented as of this encounter
== END ==
LOC: HO.SL 14:20
PROVIDERS: PCP Internal Medicine; Visit Provider Physician Assistant Medical
DX: R53.83 Other fatigue (principal); G47.9 Sleep disorder, unspecified; R06.83 Snoring
CPT/HCPCS: 95806

== ENCOUNTER → 2025-02-27 15:00 | Outpatient (BNV) | payer OTHER, SELFPAY | PROVIDERS: PCP Internal Medicine; Visit Provider Psychiatry & Neurology Neurology | DX: R06.83 Snoring (principal) | CPT/HCPCS: 95806 ==

== ENCOUNTER 2025-05-02 14:41 | Outpatient (AMB) | payer OTHER, SELFPAY ==
[2025-05-02 14:42] VITALS: BP 104/72; PULSE 78; O2SAT 97; BMI 27.8
--- NOTE | 2025-05-02 14:42 | A.OFFVIS_ITS ---
Vital Signs 05/02/25 14:42 Height 5 ft 8 in Weight 183 lb BMI 27.8 BP 104/72 Blood Pressure Location Rt brachial Position Sitting Pulse 78 Pulse Source Pulse Oximeter Pulse Oximetry (%) 97 Oxygen Delivery Method Room Air Intake Visit Reasons: Botox Line Service Technician Required: No Accompanied by: Self / Same As Patient Allergies doxycycline Allergy (Verified 05/02/25 14:47) Difficulty Breathing tramadol Adverse Reaction (Verified 05/02/25 14:47) Nausea Medication List - Last Reconciled 05/02/25 by Crystal Anthony MD albuterol sulfate 90 mcg/actuation 2 puffs inhalation Q6H PRN benzonatate 100 mg PO BID PRN buprenorphine-naloxone 8-2 mg (Suboxone) film sublingual cholecalciferol (vitamin D3) 50 mcg PO DAILY cyclobenzaprine 10 mg PO TID PRN lidocaine 5% 1 patch topical DAILY omeprazole 40 mg PO BID venlafaxine ER 75 mg PO DAILY HPI Comments Details: 39y/o male 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 Side effects including spread of toxin effect, dysphagia, breathing difficulties , bronchitis etc was discussed in detail and the patient agreed to the procedure.An informed consent was obtained ??? Botulinum toxin type A 200units X 1 -was diluted with 4 cc of normal saline at a concentration of 25 units in 0.5cc saline. Lot number [id number] expiration 11/2027 ??? Muscles injected ??? LeftSplenius - 50 units each ??? left levator 75 units each ??? Left semispinalis 25 units Right splenius 25 units Right Levator 25 units. ??? Total used 200 units [facility] Medical History Subcutaneous mass Surgical History History of gastric surgery H/O wrist surgery History of shoulder surgery Family History Father Diabetes Hypertension Brother Diabetes Hypertension Social History Alcohol intake: never Patient Tobacco Use Status: Never used Tobacco Physical Exam Vital Signs: Last Vital Signs Pulse 78 05/02/25 14:42 BP 104/72 05/02/25 14:42 Pulse Ox 97 05/02/25 14:42 Oxygen Delivery Method Room Air 05/02/25 14:42 BMI result Body Mass Index 27.8 Const General: cooperative, comfortable and no acute distress Nutritional Appearance: average body habitus Orientation/consciousness: patient oriented x3 HEENT Other: Pain is elicited on Tilt left side >R side : Cervical Dystonia, Splenius Capitis, Scalenes, Levator scapule, are all very tight. Face and sinus: Yes normal facial exam and Yes face symmetric Throat: Yes other ([place] score of 4) Eyes Pupils: Equal, round and reactive pupils present Neck Other: Pain is elicited on Tilt left side >R side : Cervical Dystonia, Splenius Capitis, Scalenes, Levator scapule, are all very tight. ROM limited on EXT/ Flexion/ Rotation L>R. Resp Effort & Inspection: normal respiratory effort and able to speak in complete sentences Neuro General: patient oriented x3 Cranial nerves: Yes CN's II-XII intact bilaterally, Yes Facial sensation intact/muscles of mastication intact, Yes Equal, round and reactive pupils present, Yes Normal accommodation reflex present, Yes Bilaterally intact EOM present, Yes Nystagmus not present, Yes Normal facial strength present and Yes Ability to bilaterally elevate shoulders present Cognition (Neuro): normal cognition Gait exam (Neuro): Normal gait present Motor exam (neuro): 5/5 motor strength present throughout Psych Thought process: Normal thought process present Thought content: Normal thought content present Office Procedures Botulinum toxin Injection 03290 - Dystonia Procedure code (CPT) selection complete Office Meds onabotulinumtoxinA 200 unit solution for injection Performing Provider: Crystal Anthony MD [place] [facility] Administered by: Crystal Anthony MD on 05/02/25 15:23 Dose Route Admin Location Dispensed Lot Number Expiration Date [facility] [place] [employer] Projects Advisor 200 unit IM 200 units [id number] [employer] /[employer] Total Dispensed Waste 200 units 0 % Comments: see hpi Assessment & Plan Assessment & Plan (1) Spasmodic torticollis: Code(s): G24.3 - Spasmodic torticollis Category: Medical Plan Patient tolerated the procedure well He will call with any side effects. Orders: Orders AMB Botulinum toxin Injection Today G24.3 - Spasmodic torticollis Coding Level of Care Code Est Pt Level 1 (27864) Diagnoses Spasmodic torticollis G24.3 CPT Codes Botox Injection - Botox 4: 68733 - Dystonia ([id number])
--- OUTSIDE RECORDS SUMMARY | 2025-05-02 15:52 | XMS_ITS | Encounter Summary ---
Author Organization [facility] Address [address] [place] [address] Care Team Providers Care Seamstress Fitter Name Role Phone Patricio Asher MD Primary Care Provider [phone] Encounter Details Date Type Department Care Team (Late st Contact Info) Description 02/23/2025 Lab Requisition [facility] - Main Lab [address] [facility] [place] [address] James Au, REMY [address] [place] [phone] Gross hematuria Social History Tobacco Use Types [...] for your loved ones. For example, child caregiver private home or elderly care for an older adult? [...] Care Team (Late st Contact Info) Description 05/11/2025 9:30 AM EDT Office Visit [facility] - [facility] [address] [place] [address] Juni Tran MD [address] [place] [address] 05/26/2025 9:40 AM EDT Consult Gastroenterology - [address] [place] [address] Kadie Coughlin PA [address] [place] [address] documented as of this encounter Procedures Procedure Name Priority Date/Time Associated Diagnosis Comments AP OUTSIDE CONSULT Routine 02/20/2025 12 :00 AM EDT Gross hematuria documented in this encounter Results * Anatomic pathology outside consult (02/20/2025 12:00 AM EDT) Final Diagnosis A. Urine, Voided, ([id number]): Negative for high grade urothelial carcinoma. Acute inflammatory cells are present. Results of [employer] fluorescence in situ hybridization (FISH) testing: CEP3: Normal CEP7: Normal CEP17: Normal LSI 9p21: Normal Interpretation: Normal profile Controls stained appropriately. Note: The results are intended as a screening device and should be interpreted in association with other clinical and pathological findings. 03/08/2025 2:35 PM EDT [facility] Clinical Information Gross hematuria R31.0 Urine Cytology/FISH (now) 03/08/2025 2:35 PM EDT [facility] Gross Description A. Urine, Voided, ([id number]): Received one ThinPrep slide for cytology and one ThinPrep slide for [employer] FISH 03/08/2025 2:35 PM EDT [facility] Disclaimer Unless otherwise specified, all tissue is 10% NB formalin fixed and paraffin embedded. Technical pathology services provided by [facility] at [address], [place] [address] (CLIA #[id number]/Maggie Bartholomew MD, New Home Sales Consultant) 03/08/2025 2:35 PM EDT [facility] Tissue Urine specimen from urethra / Unknown 02/20/2025 02/23/2025 10:44 AM EDT us [facility] PATHOLOGY ORDERABLES Final Result [facility] [address] [place] [address], documented in this encounter Visit Diagnoses Diagnosis Gross hematuria documented in this encounter Additional Health Concerns Assessment Noted Time PHQ-9 Depression Total Score: 19 12/12/ 025 3:42 PM EST documented as of this encounter Care Teams Seamstress Fitter Relationship Specialty Start Date End Date Patricio Asher MD [address] [place] [id number] PCP - General 10/21/23 documented as of this encounter
== END 2025-05-02 15:14 | disposition home or self-care (01) ==
LOC: HO.HSMS 14:42
PROVIDERS: PCP Internal Medicine; Visit Provider Psychiatry & Neurology Neurology
DX: G24.3 Spasmodic torticollis (principal)
CPT/HCPCS: 64616

== ENCOUNTER → 2025-05-02 14:41 | Outpatient (BNVA) | payer OTHER, SELFPAY | PROVIDERS: PCP Internal Medicine; Visit Provider Psychiatry & Neurology Neurology | DX: G24.3 Spasmodic torticollis (principal) | CPT/HCPCS: 64616; 99211; J0585 ==